=== PATIENT | female | born 1995 | race Caucasian/White ===

== ENCOUNTER 2023-03-20 07:39 | Outpatient (AMB) | payer OTHER, SELFPAY ==
--- NOTE | 2023-03-20 07:52 | A.OFFPC_ITS ---
Vital Signs 03/20/23 07:53 Height 5 ft 4 in Weight 117 lb BMI 20.1 BP 100/60 Blood Pressure Location Lt brachial Position Sitting Pulse 69 Pulse Source Pulse Oximeter Pulse Oximetry (%) 100 Oxygen Delivery Method Room Air Intake Visit Reasons: Severe Mental health disorder Allergies cephalexin Adverse Reaction (Verified 03/20/23 07:55) Anaphylaxis Penicillins Adverse Reaction (Verified 03/20/23 07:55) Anaphylaxis Medication List - Last Reconciled 03/20/23 by ASUNCION Horton escitalopram oxalate 5 mg PO DAILY escitalopram oxalate (Lexapro) 5 mg PO DAILY methylphenidate HCl ER (Concerta) 18 mg PO DAILY Tobacco use date assessed: 03/20/23 Dental Screening Dental Screen Date: 03/20/23 Did you have a dental visit in the last 12 months?: No Was dental information given to patient?: Patient has dentist HPI Severe Mental health disorder HPI Details New pt is here for a PE. Will order labs. She does not have a optometrist, will refer. Pt needs a referral for a therapist, will have BH team speak with penelope pratt. Denies any SI or HI. pt does have a psychiatrist already who manages her meds [facility] Medical History Migraines Family History Maternal Aunt Mental health disorder Mother Mental health disorder Social History Housing: House Patient Tobacco Use Status: Never used Tobacco e-Cigarette/Vaping Use: Currently Using service: No Current occupational status: employed Cognitive needs: No Hearing needs: No Vision needs: Yes Questionnaire PHQ-9 Over the last 2 weeks, how often have you been bothered by any of the following problems? 1. Little interest or pleasure in doing things: several days 2. Feeling down, depressed, or hopeless: more than half the days 3. Trouble falling or staying asleep, or sleeping too much: several days 4. Feeling tired or having little energy: several days 5. Poor appetite or overeating: not at all 6. Feeling bad about yourself - or that you are a failure or have let yourself or your family down: several days 7. Trouble concentrating on things, such as reading the newspaper or watching television: not at all 8. Moving or speaking so slowly that other people could have noticed. Or the opposite - being so fidgety or restless that you have been moving around a lot more than usual: not at all 9. Thoughts that you would be better off or of hurting yourself in some way: not at all Total score: 6 Depression Screening Interpretation: Negative Depression Screening Done: Yes 24456 - PHQ-9 Billing: Yes Source: Developed by Drs. Daren Crenshaw, Noy Larson, Sin Nguyen and colleagues, with an educational cinthia from [employer]. Thrive Questionnaire Date Thrive assessed: 03/20/23 I am a: Patient What is your living situation today?: I have a steady place to live Within the past 12 months, did the food you bought not last and you didn't have the money to get more?: Never true Within the past 12 months, did you worry whether your food would run out before you got money to buy more?: Never true Do you have trouble paying for medicines?: No Do you have trouble getting transportation to medical appointments?: No Do you have trouble paying your heating and electricity bill?: No Do you have trouble taking care of your child, family member or friend?: No Do you have trouble with day-to-day activities such as bathing, preparing meals, shopping, managing finances, etc.?: No Are you currently unemployed and looking for a job?: No Are you interested in more education?: No Currently or been in a relationship where the following occur: no concerns reported AUDIT C Alcohol Use Questionnaire (AUDIT-C) 1. How often do you have a drink containing alcohol?: Monthly or less 2. How many drinks containing alcohol do you have on a typical day when you are drinking?: 1 or 2 3. How often do you have six or more drinks on one occasion?: Never Total Score: 1 Score Reviewed/Action Taken: Yes TYE-7 AMB Questionnaire TYE-7 Date TYE - 7 assessed: 03/20/23 Feeling nervous, anxious, or on edge: 2 = More than half the days Not being able to stop or control worryin = Nearly every day Worrying too much about different things: 3 = Nearly every day Trouble relaxin = Several days Being so restless that it is hard to sit still: 1 = Several days Becoming easily annoyed or irritable: 0 = Not at all Feeling afraid as if something awful might happen: 1 = Several days Total TYE-7 score (0-4 normal; 5-9 mild; 10-14 moderate; 15-21 severe): 11 Source: Developed by Drs. Daren Crenshaw, Noy Larson, Sin Nguyen and colleagues, with an educational cinthia from [employer]. TYE-7 Assessment Billing TYE-7 Assessment Tool: TYE-7 Assessment 66199 Review of Systems Const Denies chills and Denies fever(s) Eyes Denies blurry vision ENT Denies vertigo, Denies dizziness and Denies sore throat Card Denies chest pain at rest, Denies chest pain with activity, Denies diaphoresis, Denies dyspnea and Denies dyspnea on exertion Resp Denies cough, Denies dyspnea, Denies dyspnea on exertion and Denies wheezing GI Denies abdominal pain, Denies melena, Denies hematochezia, Denies constipation, Denies diarrhea and Denies loose stools Denies hematuria Musc Denies numbness and Denies tingling Skin/Breast Denies lesions Neuro Denies vertigo, Denies dizziness, Denies numbness and Denies tingling Psych Denies anxiety, Denies depression, Denies homicidal ideation, Denies suicidal ideation and Denies other (substance abuse) Aller/Immun Denies wheezing Physical exam (Primary Care) Vital Signs: Last Vital Signs Pulse 69 03/20/23 07:53 BP 100/60 03/20/23 07:53 Pulse Ox 100 03/20/23 07:53 Oxygen Delivery Method Room Air 03/20/23 07:53 BMI result Body Mass Index 20.1 Tobacco/Smoking Status: Tobacco use Status Tobacco use date assessed 03/20/23 03/20/23 08:00 Patient Tobacco Use Status Never used Tobacco 03/20/23 08:00 e-Cigarette/Vaping Use Currently Using 03/20/23 08:00 PHQ-9: PHQ-9 Score PHQ-9: Total score 6 03/20/23 08:12 Depression Screening Interpretation: Negative Thrive Assessment: Date of Thrive Assessment Date Thrive assessed 03/20/23 03/20/23 08:12 Currently or been in a relationship where the following occur: no concerns reported Const General: cooperative Nutritional Appearance: well nourished Orientation/consciousness: patient oriented x3 HENMT Head: Yes normal to inspection, Yes normocephalic and Yes atraumatic Ears: TM's normal bilaterally Eyes General: appearance normal, both eyes and all related structures Alignment and Position: alignment normal and position normal Neck Neck: Yes normal visual inspection and Yes no lymphadenopathy Thyroid: Thyroid normal Resp Effort & Inspection: normal respiratory effort Auscultation: clear to auscultation bilaterally Cardio Rate: regular rate Rhythm: regular rhythm Heart sounds: S1 normal heart sound present, S2 normal heart sound present and no murmurs GI Palpation (GI): Soft to palpation and nontender Auscultation: normal bowel sounds Skin Rashes: no rashes Neuro General: patient oriented x3 Romberg Test: Negative Psych Appearance: grossly normal Mental Status: mental status grossly normal Speech and movement: Normal speech and movement present Affect: normal affect Attitude: cooperative Thought process: Normal thought process present Thought content: Normal thought content present Insight: Good insight present (Psych) Judgement: Good judgement present (Psych) Assessment and Plan Assessment & Plan (1) Physical exam: Code(s): Z00.00 - Encounter for general adult medical examination without abnormal findings Plan: Labs ordered (2) Screening for cervical cancer: Code(s): Z12.4 - Encounter for screening for malignant neoplasm of cervix Plan: Referred to optometrist Plan The patient agreed to the use of a medical technologist hematology for this encounter. Scribed for ASUNCION Mahmood by Sandra Adams medical technologist hematology, on 03/20/2023 at 08:00 EST. Orders: Orders Comprehensive [place]. Panel Fast Today Z00.00 - Encounter for general adult medical examination without abnormal findings UA CC w/rflx Micro + Cult Today Z00.00 - Encounter for general adult medical examination without abnormal findings Lipid Panel Today Z00.00 - Encounter for general adult medical examination without abnormal findings Complete Blood Count Auto Diff Today Z00.00 - Encounter for general adult medical examination without abnormal findings TSH reflex Free T4 Today Z00.00 - Encounter for general adult medical examination without abnormal findings Referrals [facility] [employer] Referral Z12.4 - Encounter for screening for malignant neoplasm of cervix Coding Level of Care Code New Pt Prev Care 18-39yr(21025 Diagnoses Physical exam Z00.00 Screening for cervical cancer Z12.4 Additional Codes TYE-7 Assessment Billing - TYE-7 Assessment Tool: TYE-7 Assessment [id number] ([id number])
[2023-03-20 07:53] VITALS: BP 100/60; PULSE 69; O2SAT 100; BMI 20.1
== END 2023-03-20 08:29 | disposition home or self-care (01) ==
PROVIDERS: Visit Provider Nurse Practitioner Family
DX: Z00.00 Encounter for general adult medical examination without abnormal findings (principal); Z12.4 Encounter for screening for malignant neoplasm of cervix
CPT/HCPCS: 99385

== ENCOUNTER 2023-06-27 09:28 | Outpatient (AMB) | payer OTHER, SELFPAY ==
--- NOTE | 2023-06-27 09:29 | MHC.OFFVIS ---
Intake Vital Signs 06/27/23 09:30 Height 5 ft 4 in Weight 117 lb BMI 20.1 BP 102/56 L Intake Visit Reasons: New patient Annual Preforms Laminator Required: No Information Interpreted: non-clinical & clinical Financial Services Representative: Financial Services Representative Present (Radha) Allergies cephalexin Adverse Reaction (Verified 06/27/23 09:33) Anaphylaxis Penicillins Adverse Reaction (Verified 06/27/23 09:33) Anaphylaxis Medication List - Last Reconciled 06/27/23 by Marjorie Morillo CNM escitalopram oxalate 5 mg PO DAILY escitalopram oxalate (Lexapro) 5 mg PO DAILY levonorgestrel-ethinyl estrad 0.1-20 mg-mcg (Sronyx) 1 tab PO DAILY methylphenidate HCl ER (Concerta) 18 mg PO DAILY Is last menstrual period known: Yes Last menstrual period: 05/31/23 Post menopausal: No HPI New patient Annual HPI Details Patient is here for a brand new obstetrics gynecology md exam she lost insurance during COV so could not see her previous provider but [facility] but it has been a few years since she has had an exam and Pap smear. She has been on control pills for a while with no difficulty at all. 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 This is a potential she may be interested in childbearing in the somewhat near future. I reviewed the options for where to go to deliver in the [facility] currently.. Has found primary care provider that she feels she can speak with. [facility] Medical History (Updated 06/27/23 @ 10:11 by Marjorie Morillo CNM) Arthritis ADHD Depression Migraines Family History (Updated 06/27/23 @ 09:35 by KEVIN Franco) Maternal Aunt Mental health disorder Breast cancer Mother Mental health disorder Paternal Aunt Breast cancer Social History (Updated 06/27/23 @ 09:36 by KEVIN Franco) Housing: House Alcohol intake: current Alcohol intake frequency: holidays/special occasions only Patient Tobacco Use Status: Never used Tobacco e-Cigarette/Vaping Use: Currently Using Substance Use Type: Marijuana service: No Current occupational status: employed Cognitive needs: No Hearing needs: No Vision needs: Yes Female Reproductive History Menstrual Age of Menarche: 17 Duration of menses: 3-5 days Date of last menstrual period: 05/31/23 control method: pills Total pregnancies: 0 Physical Exam Vital Signs: Last Vital Signs BP 102/56 L 06/27/23 09:30 BMI result Body Mass Index 20.1 Const General: healthy appearing, comfortable, no acute distress, well developed and alert Nutritional Appearance: average body habitus Orientation/consciousness: patient oriented x3 Limitations: no limitations HEENT Head: Yes normocephalic Neck Neck: Yes normal visual inspection Thyroid: Thyroid normal Chest Chest palpation & inspection: normal inspection of the chest Breast/axilla inspection: normal inspection of the breasts and normal inspection of the axillae Breast/axilla palpation: normal palpation of the breasts and normal palpation of the axillae Resp Effort & Inspection: normal respiratory effort GI Inspection: Yes normal to inspection, No Abdominal wall edema and No distended Palpation (GI): Soft to palpation and nontender Other: External exam within normal limits vagina pink so healthy mucous no abnormal discharge nulliparous cervix long close thick pink mobile nontender uterus small anteverted mobile nontender adnexa nontender good tone with Kegel. General: Yes bladder normal to palpation External Female Exam: normal external appearance and normal appearance of the urethra Speculum Exam - Vagina: normal appearance of the vagina, normal palpation and normal vaginal discharge Speculum Exam - Cervix: normal appearance of the cervix, normal palpation and nontender Bimanual exam- vagina & uterus: normal bimanual exam, normal palpation, uterine size normal, bladder normal to palpation, consistency normal, normal palpation, uterine mobility normal, uterine shape normal, No Cervical tenderness present, non-tender and no cervical motion tenderness Bimanual Exam- Adnexa, other: normal adnexae, no masses, normal and No adnexal tenderness Neuro General: patient oriented x3 Assessment & Plan Assessment & Plan (1) Screening for cervical cancer: Comment: 06/26/22 pap=..... Code(s): Z12.4 - Encounter for screening for malignant neoplasm of cervix (2) Encounter for screening examination for sexually transmitted disease: Code(s): Z11.3 - Encounter for screening for infections with a predominantly sexual mode of transmission (3) Family planning counseling: Code(s): Z30.09 - Encounter for other general counseling and advice on contraception (4) Well woman exam with routine gynecological exam: Code(s): Z01.419 - Encounter for gynecological examination (general) (routine) without abnormal findings (5) Surveillance for control, oral contraceptives: Code(s): Z30.41 - Encounter for surveillance of contraceptive pills Plan -----Discussed in this visit the following: healthy balanced diet, regular and consistent exercise, getting recommended health screens, doing the best she can for her particular health concerns, kegel exercises, pap smear screening and followup recommendations, mammography screening and SBE, normal changes in cycles in her life stage--- .----I reviewed available options for Control Methods and their associated side effect profiles. In particular, we discussed the method most of interest to her. Refilling the prescription that she is on reviewed danger signs related to control pills to continue with 1 pill every day as directed refills sent as well she has a few pills left on her old prescription and she will use the oldest pills 1st. -offered blood work for HIV hep B hep C and syphilis. She still has some fasting blood work to get done for her primary and since she has not eaten today she may get it all done downstairs now. I asked her to checkup front for information about the portal so she can get her own results. Also discussed potential future childbearing discussed that we no longer have a birthing center and the ability to provide comprehensive maternity care. Discussed other options in the [place] including [facility] and the 7 sister birthing center in [place] that she is aware of already. Reviewed her healthy lifestyle and health practices and the common findings of Gardnerella and Margaret which do not need to be treated unless they are symptomatic.. Orders: Orders Bacterial Vaginosis Panel Today Z11.3 - Encounter for screening for infections with a predominantly sexual mode of transmission CT NG by PCR Today Z11.3 - Encounter for screening for infections with a predominantly sexual mode of transmission Pap Smear Today Z12.4 - Encounter for screening for malignant neoplasm of cervix Hepatitis C Antibody Today Z01.419 - Encounter for gynecological examination (general) (routine) without abnormal findings, Z11.3 - Encounter for screening for infections with a predominantly sexual mode of transmission, Z12.4 - Encounter for screening for malignant neoplasm of cervix, Z30.09 - Encounter for other general counseling and advice on contraception, Z30.41 - Encounter for surveillance of contraceptive pills Hepatitis B Surface Antigen Today Z - Encounter for gynecological examination (general) (routine) without abnormal findings, Z11.3 - Encounter for screening for infections with a predominantly sexual mode of transmission, Z12.4 - Encounter for screening for malignant neoplasm of cervix, Z30.09 - Encounter for other general counseling and advice on contraception, Z30.41 - Encounter for surveillance of contraceptive pills HIV Ab/Ag Today Z419 - Encounter for gynecological examination (general) (routine) without abnormal findings, Z11.3 - Encounter for screening for infections with a predominantly sexual mode of transmission, Z12.4 - Encounter for screening for malignant neoplasm of cervix, Z30.09 - Encounter for other general counseling and advice on contraception, Z30.41 - Encounter for surveillance of contraceptive pills Syphilis Screen Today Z - Encounter for gynecological examination (general) (routine) without abnormal findings, Z11.3 - Encounter for screening for infections with a predominantly sexual mode of transmission, Z12.4 - Encounter for screening for malignant neoplasm of cervix, Z30.09 - Encounter for other general counseling and advice on contraception, Z30.41 - Encounter for surveillance of contraceptive pills Medications: New levonorgestrel-ethinyl estrad 0.1-20 mg-mcg (Sronyx) 1 tab PO DAILY 84 tabs 4RF Coding Level of Care Code New Pt Prev Care 18-39yr(88948 Diagnoses Screening for cervical cancer Z12.4 Encounter for screening examination for sexually transmitted disease Z11.3 Family planning counseling Z30.09 Well woman exam with routine gynecological exam Z Surveillance for control, oral contraceptives Z30.41
[2023-06-27 09:30] VITALS: BP 102/56; BMI 20.1
== END 2023-06-27 10:14 | disposition home or self-care (01) ==
LOC: HO.HWSM 09:28
PROVIDERS: Visit Provider Advanced Practice Midwife
DX: Z01.419 Encounter for gynecological examination (general) (routine) without abnormal findings (principal)
CPT/HCPCS: 99385

== ENCOUNTER 2023-06-27 09:28 | Outpatient (REF) | payer OTHER, SELFPAY ==
[2023-06-28 13:36] LABS: BV Int Neg Control Negative (Negative); BV Int Pos Control Positive (Positive)
== END 2023-06-27 09:29 | disposition home or self-care (01) ==
LOC: HO.LNP 09:28
PROVIDERS: Visit Provider Advanced Practice Midwife
DX: Z01.419 Encounter for gynecological examination (general) (routine) without abnormal findings (principal); Z11.3 Encounter for screening for infections with a predominantly sexual mode of transmission; Z79.899 Other long term (current) drug therapy
CPT/HCPCS: 87480; 87510; 87660; 88142; 99385

== ENCOUNTER 2023-06-27 10:16 | Outpatient (REF) | payer OTHER, SELFPAY ==
[2023-06-27 12:16] LABS: Syphilis Screen Nonreactive (Nonreactive)
[2023-06-27 12:17] LABS: HBsAGNum1 0.44 S/CO (0.00-0.99); HIV AB/AG Nonreactive (Nonreactive); HIV Num 1 0.07 S/CO (0.00-0.99); Hepatitis B Surface Antigen Negative (Negative); ~Hepatitis C Antibody Nonreactive (Nonreactive)
[2023-06-27 13:34] LABS: CT PCR NOT DETECTED (Not Detect.); NG PCR NOT DETECTED (Not Detect.)
== END 2023-06-27 10:17 | disposition home or self-care (01) ==
LOC: HO.HHCL 10:16
PROVIDERS: Visit Provider Advanced Practice Midwife
DX: Z01.419 Encounter for gynecological examination (general) (routine) without abnormal findings (principal); Z11.3 Encounter for screening for infections with a predominantly sexual mode of transmission
CPT/HCPCS: 0353U; 86780; 86803; 87340; 87389

== ENCOUNTER 2023-11-15 11:21 | Outpatient (AMB) | payer OTHER, SELFPAY ==
--- NOTE | 2023-11-15 11:53 | A.OFFPC_ITS ---
Vital Signs 11/15/23 12:02 Weight 114 lb BP 112/70 Blood Pressure Location Rt brachial Position Sitting Pulse 86 Pulse Source Pulse Oximeter Pulse Oximetry (%) 98 Oxygen Delivery Method Room Air Intake Visit Reasons: Meds Follow Up Allergies cephalexin Adverse Reaction (Verified 11/15/23 12:03) Anaphylaxis Penicillins Adverse Reaction (Verified 11/15/23 12:03) Anaphylaxis Medication List - Last Reconciled 11/15/23 by ASUNCION Horton escitalopram oxalate 5 mg PO DAILY levonorgestrel-ethinyl estrad 0.1-20 mg-mcg (Sronyx) 1 tab PO DAILY methylphenidate HCl ER (Concerta) 18 mg PO DAILY Tobacco use date assessed: 11/15/23 Dental Screening Dental Screen Date: 11/15/23 Did you have a dental visit in the last 12 months?: Yes Did you have a dental problem in the last 6 months where you did not have access to dental care?: No Was dental information given to patient?: Patient has dentist HPI Meds Follow Up HPI Details Pt reports passing out when she stands up too fast or when she is scared. She reports complete LOC with these episodes (since mid-teens). Pt reports that this has been going on for many years. Pt has a hx of panic attacks. ? POTS component as well. Will order tilt table test and holter monitor. Pt never had imaging of her head, will order. Pt does report if she drinks sugary drinks the symptoms tend to appear more often. Pt does report if she feels, what sounds like a panic attack, she drops to the ground and sometimes does not lose consciousness. 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 EDS component, pt was suppossed to go for more testing (genetic), but hasn't done this yet. Told her to increase fluids, and can increase her sodium content as well. [facility] Medical History Arthritis ADHD Depression Migraines Family History Maternal Aunt Mental health disorder Breast cancer Mother Mental health disorder Paternal Aunt Breast cancer Social History Housing: House Alcohol intake: current Alcohol intake frequency: holidays/special occasions only Patient Tobacco Use Status: Never used Tobacco e-Cigarette/Vaping Use: Currently Using Substance Use Type: Marijuana service: No Current occupational status: employed Cognitive needs: No Hearing needs: No Vision needs: Yes Female Reproductive History Menstrual Age of Menarche: 17 Questionnaire PHQ-9 Over the last 2 weeks, how often have you been bothered by any of the following problems? 1. Little interest or pleasure in doing things: several days 2. Feeling down, depressed, or hopeless: several days 3. Trouble falling or staying asleep, or sleeping too much: several days 4. Feeling tired or having little energy: several days 5. Poor appetite or overeating: not at all 6. Feeling bad about yourself - or that you are a failure or have let yourself or your family down: several days 7. Trouble concentrating on things, such as reading the newspaper or watching television: several days 8. Moving or speaking so slowly that other people could have noticed. Or the opposite - being so fidgety or restless that you have been moving around a lot more than usual: several days 9. Thoughts that you would be better off or of hurting yourself in some way: not at all Total score: 7 Depression Screening Interpretation: Negative Depression Screening Done: Yes 63173 - PHQ-9 Billing: Yes Source: Developed by Drs. Daren Crenshaw, Noy Larson, Sin Nguyen and colleagues, with an educational cinthia from [employer]. Thrive Questionnaire Date Thrive assessed: 11/08/23 I am a: Patient What is your living situation today?: I have a steady place to live Within the past 12 months, did the food you bought not last and you didn't have the money to get more?: Never true Within the past 12 months, did you worry whether your food would run out before you got money to buy more?: Never true Do you have trouble paying for medicines?: I choose not to answer this question Do you have trouble getting transportation to medical appointments?: No Do you have trouble paying your heating and electricity bill?: No Do you have trouble taking care of your child, family member or friend?: No Do you have trouble with day-to-day activities such as bathing, preparing meals, shopping, managing finances, etc.?: No Are you currently unemployed and looking for a job?: No Are you interested in more education?: No Please select the resources that you would like help with: Housing/[facility] Currently or been in a relationship where the following occur: I choose not to answer THRIVE Score: 0 AUDIT C Alcohol Use Questionnaire (AUDIT-C) 1. How often do you have a drink containing alcohol?: 2-4 times a month 2. How many drinks containing alcohol do you have on a typical day when you are drinking?: 1 or 2 3. How often do you have six or more drinks on one occasion?: Never Total Score: 2 TYE-7 AMB Questionnaire TYE-7 Date TYE - 7 assessed: 11/15/23 Feeling nervous, anxious, or on edge: 3 = Nearly every day Not being able to stop or control worryin = Nearly every day Worrying too much about different things: 2 = More than half the days Trouble relaxin = More than half the days Being so restless that it is hard to sit still: 1 = Several days Becoming easily annoyed or irritable: 1 = Several days Feeling afraid as if something awful might happen: 2 = More than half the days Total TYE-7 score (0-4 normal; 5-9 mild; 10-14 moderate; 15-21 severe): 14 Source: Developed by Drs. Daren Crenshaw, Noy Larson, Sin Nguyen and colleagues, with an educational cinthia from [employer]. TYE-7 Assessment Billing TYE-7 Assessment Tool: TYE-7 Assessment 52623 Review of Systems Const Reports as per HPI Physical exam (Primary Care) Vital Signs: Last Vital Signs Pulse 86 11/15/23 12:02 BP 112/70 11/15/23 12:02 Pulse Ox 98 11/15/23 12:02 Oxygen Delivery Method Room Air 11/15/23 12:02 Tobacco/Smoking Status: Tobacco use Status Tobacco use date assessed 11/15/23 11/15/23 12:04 Patient Tobacco Use Status Never used Tobacco 11/15/23 11:54 e-Cigarette/Vaping Use Currently Using 11/15/23 11:54 PHQ-9: PHQ-9 Score PHQ-9: Total score 7 11/15/23 12:04 Depression Screening Interpretation: Negative Thrive Assessment: Date of Thrive Assessment Date Thrive assessed 11/08/23 11/15/23 11:54 Currently or been in a relationship where the following occur: I choose not to answer Const General: cooperative Orientation/consciousness: patient oriented x3 Resp Effort & Inspection: normal respiratory effort Auscultation: clear to auscultation bilaterally Cardio Rate: regular rate Rhythm: regular rhythm Heart sounds: S1 normal heart sound present, S2 normal heart sound present and no murmurs Neuro General: patient oriented x3 Cranial nerves: Yes CN's II-XII intact bilaterally Motor exam (neuro): 5/5 motor strength present throughout Psych Appearance: grossly normal Mental Status: mental status grossly normal Speech and movement: Normal speech and movement present Affect: normal affect Attitude: cooperative Thought process: Normal thought process present Thought content: Normal thought content present Insight: Good insight present (Psych) Judgement: Good judgement present (Psych) Assessment and Plan Assessment & Plan (1) LOC (loss of consciousness): Code(s): R40.20 - Unspecified coma (2) LOC (loss of consciousness): Code(s): R40.20 - Unspecified coma Plan: ? true LOC, ? panic attack/vasovagal (3) Palpitations: Code(s): R00.2 - Palpitations Plan: holter, tilt table test, labs Plan The patient agreed to the use of a mobile paramedical examiner for this encounter. Scribed for JOSE D Mahmood by Sandra Adams mobile paramedical examiner, on 11/15/2023 at 12:10 EST. Orders: Orders MR head/brain wo con Today R40.20 - Unspecified coma Complete Blood Count Auto Diff Today R00.2 - Palpitations, R40.20 - Unspecified coma Comprehensive [place]. Panel Fast Today R00.2 - Palpitations, R40.20 - Unspecified coma UA CC w/rflx Micro + Cult Today R00.2 - Palpitations, R40.20 - Unspecified coma ECG Tilt Table Test Today R40.20 - Unspecified coma ECG 3 day holter monitor Today R00.2 - Palpitations, R40.20 - Unspecified coma TSH reflex Free T4 Today R00.2 - Palpitations, R40.20 - Unspecified coma Lipid Panel Today R00.2 - Palpitations, R40.20 - Unspecified coma Magnesium Today R00.2 - Palpitations, R40.20 - Unspecified coma Coding Level of Care Code Est Pt Level 3 (99329) Diagnoses LOC (loss of consciousness) R40.20 Palpitations R00.2 Additional Codes TYE-7 Assessment Billing - TYE-7 Assessment Tool: TYE-7 Assessment 07584 ([id number])
[2023-11-15 12:02] VITALS: BP 112/70; PULSE 86; O2SAT 98
== END 2023-11-15 12:33 | disposition home or self-care (01) ==
PROVIDERS: Visit Provider Nurse Practitioner Family
DX: R40.20 Unspecified coma (principal); R00.2 Palpitations
CPT/HCPCS: 99213

== ENCOUNTER 2023-11-15 13:16 | Outpatient (REF) | payer OTHER, SELFPAY ==
[2023-11-15 16:05] LABS: Appearance Urine Clear; Color Urine Yellow; Glucose Urine UA Negative (Negative); Leukocyte Esterase Urine Trace (Negative); Nitrite Urine Negative (Negative); Specific Gravity - Urine 1.025 (1.005-1.025); UMIC TRIGGER UACC YES; Urine Blood Negative (Negative); Urine Ketones Negative (Negative); Urine Protein Trace mg/dL (Neg-Trace)
[2023-11-15 16:10] LABS: Bacteria Urine Trace (None Seen); Hyaline Casts Urine 0-2 /LPF (0-2); RBC Urine 0-2 /HPF (0-2); Squamous Epithelial Cell Urine 0-2 /HPF (0-2); WBC Urine 0-5 /HPF (0-5)
[2023-11-15 16:14] LABS: MANUAL DIFF FLAG NO
[2023-11-15 16:31] LABS: Basophils Absolute Auto 0.1 X10*3/uL (0.0-0.2); Basophils Percent Auto 0.8 % (0-2); Eosinophils Absolute Auto 0.2 X10*3/uL (0.0-0.4); Eosinophils Percent Auto 3.7 % (0-4); Hematocrit 38.4 % (37.0-47.0); Hemoglobin 13.2 g/dl (12.0-16.0); Lymphocytes Absolute Auto 2.9 X10*3/uL (1.2-4.9); Lymphocytes Percent Auto 45.6 % (20-40); Mean Corpuscular HGB Conc 34.4 g/dl (31.0-35.0); Mean Corpuscular Hemoglobin 32.2 pg (27.0-33.0); Mean Corpuscular Volume 93.7 fL (80.0-98.0); Mean Platelet Volume 9.5 fL (9.4-12.3); Monocytes Absolute Auto 0.4 X10*3/uL (0.1-1.2); Monocytes Percent Auto 6.7 % (2-11); Neutrophils Absolute Auto 2.7 x10*3/uL (2.0-8.3); Neutrophils Percent Auto 43.2 % (45-73); Platelet Count 310 X10*3/uL (160-400); Red Cell Distribution Width 12.1 % (11.0-16.0); White Blood Count 6.3 X10*3/uL (4.8-10.8)
[2023-11-15 16:59] LABS: Alanine Aminotransferase 14 U/L (0-31); Albumin Level 4.2 g/dL (3.5-5.0); Alkaline Phosphatase 55 U/L (39-117); Anion Gap 9 (12-20); Aspartate Amino Transferase 15 U/L (5-31); Bilirubin Total 0.5 mg/dL (0.0-1.0); Blood Urea Nitrogen 11 mg/dL (9-16); Calcium 9.5 mg/dL (8.4-10.2); Carbon Dioxide 27 mmol/L (22-29); Chloride 106 mmol/L (96-108); Cholesterol 138 mg/dL (<200); Estimated Glomerular Filt Rate > 60; Glucose Fasting 83 mg/dL (60-99); HDL Cholesterol 56 mg/dL (>40); LDL Cholesterol Calculated 69 mg/dL (<100); Magnesium 1.9 mg/dL (1.6-2.6); Potassium 3.7 mmol/L (3.3-5.1); Sodium 138 mmol/L (135-145); Total Protein 6.5 g/dL (6.5-8.0); Triglycerides 67 mg/dL (<150)
[2023-11-15 17:16] LABS: TSH reflex Free T4 1.07 uIU/mL (0.32-4.0)
== END 2023-11-15 13:17 | disposition home or self-care (01) ==
LOC: HO.HMGCLDS 13:16
PROVIDERS: PCP Nurse Practitioner Family; Visit Provider Nurse Practitioner Family
DX: Z00.00 Encounter for general adult medical examination without abnormal findings (principal); R40.20 Unspecified coma; R00.2 Palpitations
CPT/HCPCS: 36415; 80053; 80061; 81001; 81003; 83735; 84443; 85025

== ENCOUNTER → 2023-12-12 09:36 | Outpatient (REF) | payer OTHER, SELFPAY ==
--- NOTE | 2023-12-12 09:38 | HM_ITS ---
Conclusion: 1. Patient was monitored for total period of 2 days and 23 hours 2. Baseline was normal sinus rhythm with average heart rate of 78 beats per minute 3. No significant pauses or arrhythmias noted 4. No patient reported events MTDD
== END ==
LOC: HO.CARD 09:36
PROVIDERS: PCP Nurse Practitioner Family; Visit Provider Nurse Practitioner Family
DX: R00.2 Palpitations (principal); R40.20 Unspecified coma
CPT/HCPCS: 93242

== ENCOUNTER → 2023-12-12 09:38 | Outpatient (BNV) | payer OTHER, SELFPAY | PROVIDERS: PCP Nurse Practitioner Family; Visit Provider Internal Medicine Cardiovascular Disease | DX: R00.0 Tachycardia, unspecified (principal) | CPT/HCPCS: 93244 ==

== ENCOUNTER 2023-12-19 18:49 | Outpatient (REF) | payer OTHER, SELFPAY ==
--- NOTE | ~2023-12-19 | MR_ITS ---
EXAMINATION: MR BRAIN WITHOUT CONTRAST CLINICAL INFORMATION: Unspecified coma COMPARISON: None TECHNIQUE: Multiplanar multisequence MR imaging of the brain was obtained without intravenous contrast. FINDINGS: There is no acute infarct on diffusion-weighted imaging. There is no intracranial hemorrhage on iron-sensitive imaging. No extra-axial collection or mass effect/herniation. There are several scattered foci of nonspecific supratentorial white matter T2/FLAIR signal abnormality. No hydrocephalus. The ventricles are normal in morphology and size. The major flow voids at the skull base are preserved. The midline structures are normal. The cerebellar tonsils are normally positioned. The craniocervical junction is normal. Marrow signal is within normal limits. The visualized soft tissues are without significant abnormality. Trace scattered paranasal sinus mucosal thickening. MR/MR head/brain wo con IMPRESSION: Unremarkable noncontrast MRI of the brain. Electronically signed by: Harjinder Lancaster MD 01/03/2024 05:24 PM EDT
== END 2023-12-19 18:50 | disposition home or self-care (01) ==
LOC: HO.MRI 18:49
PROVIDERS: PCP Nurse Practitioner Family; Visit Provider Nurse Practitioner Family
DX: R40.20 Unspecified coma (principal)
CPT/HCPCS: 70551

== ENCOUNTER 2024-03-19 13:54 | Outpatient (AMB) | payer OTHER, SELFPAY ==
--- NOTE | 2024-03-19 14:01 | A.OFFPC_ITS ---
Vital Signs 03/19/24 14:02 Height 5 ft 4 in Weight 118 lb BMI 20.3 BP 102/62 Blood Pressure Location Lt brachial Position Sitting Pulse 73 Pulse Source Pulse Oximeter Pulse Oximetry (%) 99 Intake Visit Reasons: 4 month fu Allergies cephalexin Adverse Reaction (Verified 03/19/24 14:02) Anaphylaxis Penicillins Adverse Reaction (Verified 03/19/24 14:02) Anaphylaxis Medication List - Last Reconciled 03/19/24 by Jagjit Lemons [facility] escitalopram oxalate 10 mg PO DAILY levonorgestrel-ethinyl estrad 0.1-20 mg-mcg (Sronyx) 1 tab PO DAILY methylphenidate HCl ER (Concerta) 18 mg PO DAILY Tobacco use date assessed: 11/15/23 Dental Screening Dental Screen Date: 11/15/23 HPI 4 month fu HPI Details History of Present Illness The patient is a 28-year-old female presenting with 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 The patient reports experiencing episodes of syncope and dizziness associated with standing since childhood, indicating a need for monitoring of postural changes to manage symptoms. Previous episodes included anxiety-like attacks, managed by changing environments or positioning. Although the patient has not experienced recent severe syncopal episodes, she reported occasional vertigo. A potential diagnosis of EDS is being explored, prompted by a history of hypermobility and joint issues. She noted that her joints, particularly her shoulders, experience frequent subluxations. She did meet another individual with EDS experiencing a severe form requiring surgery after a joint dislocation. The patient?s condition demonstrated variations in symptomatic expression, indicating a broad spectrum disorder. She expressed concerns over possible Raynaud's Syndrome symptoms, describing extremities that turn blue and cold, with additional color and sensation changes. The patient has previously undergone a negative head CT and normal Holter Monitor, and her laboratory results, including kidney and cholesterol levels, are reported as optimal. Social History - Employment: Recently started a new pos ition, working with a trusted colleague, improving her stress and work conditions. - Family: Identified best friend as a penaloza pportive figure; no biological children but has close relationships with friend's children. - Past Employment: Previously worked in a high-stress environment with toxic management dynamics, which has since improved with the new job. Review of Systems - Cardiovascular: Reports dizziness when standing, necessitating caution upon rising. - Musculoskeletal: Notes occasional knee strain, described as a sensation of potential dislocation. - Dermatological: Reports episodes of ex tremities turning blue and cold, indicative of vasospastic episodes. - Neurological: Reports vertigo without concomitant nausea. Physical Exam - Musculoskeletal- right knee with minim al crepitus with extension and flexion. s1 s2 clear lungs A+O Results - Labs: Recent labs were reported as nor mal with optimal cholesterol and kidney function. - Tests: Holter Monitor showed no abnorm alities. - Imaging: CT scan of the head was negat marcie for acute findings. 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 Encouragement to avoid overexertion and joint overuse. - Postural Orthostatic Tachycardia Syndr ome: Recommendation for increased hydration and sodium intake to alleviate symptoms. Consideration for further testing if symptoms exacerbate. (tilt test ordered previously, never done). Pt reports her tool repair technician told her she most likely has POTS as well, though this is currently quite manageable. - Raynaud's Syndrome: Advising use of wa rm clothing and avoidance of cold to manage vasospastic episodes, with consideration of pharmacotherapy if symptoms are debilitating. Patient was informed and verbally consented to the use of an ambient scribe for clinic note documentation during this visit. Discussion Notes We discussed the likely EDS diagnosis and the importance of collaborating with a genetics specialist for comprehensive testing and management. We explored possible management strategies for POTS, including lifestyle modifications and symptom monitoring, without the current need for pharmacological intervention. The patient's laboratory results are reassuring, showing no signs of anemia or other causes that might contribute to her dizziness. I explained the utility of environmental and lifestyle changes to manage Raynaud's-type symptoms and the potential need to escalate care if these are insufficient. We reviewed the importance of maintaining communication with medical staff services coordinator and returning if symptoms worsen. Patient Instructions - Continue follow-up with genetics jinny vargas for evaluation of Berlin-Danlos Syndrome. - Monitor symptoms of dizziness, ensurin g sufficient hydration and increased salt intake. - Utilize warming strategies to prevent vasospastic episodes in extremities. - Schedule follow-up for additional lab work after the holiday season, ensuring fasting before tests. - Maintain contact and follow up as plan ashleigh with appointments already scheduled. [facility] Medical History (Updated 12/03/24 @ 17:50 [facility] Arthritis ADHD Depression Migraines Surgical History (Updated 03/19/24 @ 14:03 by Link Stark [facility]) No pertinent past surgical history Family History Maternal Aunt Mental health disorder Breast cancer Mother Mental health disorder Paternal Aunt Breast cancer Social History Housing: House Alcohol intake: current Alcohol intake frequency: holidays/special occasions only Patient Tobacco Use Status: Never used Tobacco e-Cigarette/Vaping Use: Currently Using Substance Use Type: Marijuana service: No Current occupational status: employed Cognitive needs: No Hearing needs: No Vision needs: Yes Female Reproductive History Menstrual Age of Menarche: 17 Questionnaire Thrive Questionnaire Date Thrive assessed: 11/08/23 I am a: Patient What is your living situation today?: I have a steady place to live Within the past 12 months, did the food you bought not last and you didn't have the money to get more?: Never true Within the past 12 months, did you worry whether your food would run out before you got money to buy more?: Never true Do you have trouble paying for medicines?: I choose not to answer this question Do you have trouble getting transportation to medical appointments?: No Do you have trouble paying your heating and electricity bill?: No Do you have trouble taking care of your child, family member or friend?: No Do you have trouble with day-to-day activities such as bathing, preparing meals, shopping, managing finances, etc.?: No Are you currently unemployed and looking for a job?: No Are you interested in more education?: No Please select the resources that you would like help with: None Currently or been in a relationship where the following occur: I choose not to answer THRIVE Score: 0 TYE-7 AMB Questionnaire TYE-7 Date TYE - 7 assessed: 11/15/23 Source: Developed by Drs. Daren Crenshaw, Noy Larson, Sin Nguyen and colleagues, with an educational cinthia from [employer]. Physical exam (Primary Care) Vital Signs: Last Vital Signs Pulse 73 03/19/24 14:02 BP 102/62 03/19/24 14:02 Pulse Ox 99 03/19/24 14:02 BMI result Body Mass Index 20.3 Tobacco/Smoking Status: Tobacco use Status Tobacco use date assessed 11/15/23 03/19/24 14:04 Patient Tobacco Use Status Never used Tobacco 03/19/24 14:04 e-Cigarette/Vaping Use Currently Using 03/19/24 14:04 Thrive Assessment: Date of Thrive Assessment Date Thrive assessed 11/08/23 03/19/24 14:04 Currently or been in a relationship where the following occur: I choose not to answer Coding Level of Care Code Est Pt Level 3 (69450) Diagnoses Palpitations R00.2 Anxiety F41.9 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
[2024-03-19 14:02] VITALS: BP 102/62; PULSE 73; O2SAT 99; BMI 20.3
== END 2024-03-19 15:35 | disposition home or self-care (01) ==
PROVIDERS: PCP Nurse Practitioner Family; Visit Provider Nurse Practitioner Family
DX: R00.2 Palpitations (principal); F41.9 Anxiety disorder, unspecified; Q79.60 Ehlers-Danlos syndrome, unspecified

== ENCOUNTER → 2024-03-19 13:54 | Outpatient (BNVA) | payer OTHER, SELFPAY | PROVIDERS: PCP Nurse Practitioner Family; Visit Provider Nurse Practitioner Family | DX: R00.2 Palpitations (principal); F41.9 Anxiety disorder, unspecified; Q79.60 Ehlers-Danlos syndrome, unspecified | CPT/HCPCS: 99212 ==

== ENCOUNTER 2024-04-01 12:15 | Outpatient (REF) | payer OTHER, SELFPAY ==
--- OUTSIDE RECORDS SUMMARY | 2024-04-01 12:18 | XMS_ITS | Data Portability ---
Author Organization [facility] [address] Address [address] [place] [address] Care Team Providers Care Marketing Operations Associate Name Role Phone LUIS LOPEZ Primary Care Provider Assessment Encounter Date Assessment Date Assessment LastModified by Organization Details LastModified Time 08/18/2023 08/18/2023 A bruise will get better on its own. But to feel better and help your bruise heal, you can: ? Put a cold gel pack, bag of ice, or bag of frozen vegetables on the injured area every 1 to 2 hours, for 15 minutes each time. Put a thin towel between the ice (or other cold object) and your skin. Use the ice (or other cold object) for at least 6 hours after your injury. Some people find it helpful to ice longer, even up to 2 days after their injury. ? Raise the area, if possible ? Raising the area above the level of your heart helps to reduce swelling. ? Take medicine to reduce the pain and swelling ? To treat pain, you can take acetaminophen (sample brand name: Tylenol). To treat pain and swelling, you can take ibuprofen (sample brand names: Advil, Motrin). But people who have certain conditions or take certain medicines should not take ibuprofen. If you are unsure, ask your doctor or nurse if you can take ibuprofen. ? Use an elastic bandage ? Using an elastic compression bandage to keep pressure on the area can reduce swelling. Be careful not to wrap the bandage too tightly. For most injuries, you can use the bandage during the first few days of healing, but take it off when you sleep. If you have another injury in the same area, like a sprained ankle, you can continue to use the elastic bandage as the injury heals. Do not use heat packs or a heating pad Do not stick a needle or other object in your bruise to drain it. [email or web address] Not available 08/18/2023 16:24:55 Plan of Treatment Reminders Order Date Submit Date Provider Last Modified By Organization Details Last Modified Time Details Appointments None recorded. Lab None recorded. Referral None recorded. Procedures None recorded. Surgeries None recorded. Imaging None recorded. Medication Orders prednisone 10 mg tablet 2023 024 [facility]acy #[id number], [address] [place], [address], 10:07:31 hydroxyzine HCl 25 mg tablet 2023 024 [facility]/Pharmacy #[id number], [address] [place], [address], 10:07:30 Patient TargetsNo targets recorded. Patient Instructions Encounter Date Encounter Id Patient Instructions Last Modified By Organization Details Last Modified Time 08/18/2023 [id number] bruises: care instructions [email or web address] Not available 08/18/2023 16:24:56 09/04/2023 [id number] Poison Michael Rash ??? Follow these important instructions: ??? - Avoid further irritation of the skin where you have contact dermatitis. - Avoid further contact with the substance that appears to cause the dermatitis. - Put cool, moist cloths on the areas of skin with dermatitis. How can I help prevent contact dermatitis? - If you know what substance caused the dermatitis, make sure that the substance is not one of the ingredients in the cosmetic, cleaning, or other products that you use. If you are accidentally exposed to the substance, wash the exposed area immediately and thoroughly. If you are allergic to nickel, find out what metal is in jewellery before you wear it. Whether or not you know what substances give you the rash, it may be helpful to: - Learn to recognize poison oak, poison mihcael, and ragweed, and avoid contact with them. - Use hypoallergenic cosmetics. - Pat your skin dry instead of rubbing it. - Try to avoid using solvents and chemicals, and wear heavy gloves when you must use them. - Use a tape coater, or wear rubber gloves when you wash dishes. ??? Call office, return to UC or PCP, or go to ER if: ??? - Persistence and worsening of symptoms even after withdrawal of irritating materials calls for medical attention. - Develop new symptoms such as fevers, chills, body aches, or feelings of illness [email or web address] Not available 09/04/2023 10:08:12 Reason for Referral None Reported. 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 Medical Equipment None Reported. Allergies Allergen ID Allergen Name Allergen Category Reaction Reaction Severity Criticality Documentation Date Start Date Code Code System Note Provider Name and Address Organization Details Recorded Time 873820 cephalexi n medicatio n Not available Not available Not available 08/18/2023 2231 RxNorm Fiona [place] null, [place] - [facility] 4 16:07:06 795303 Medicinal product containin g penicilli n and acting as antibacte rial agent (product) medicatio n Not available Not available Not available 08/18/2023 50496 05 SNOMED Fiona [place] null, [place] - [facility] 4 16:07:14 Medications Name Sig Start Date Stop Date Status Note LastModified by Organization Details LastModified Time prednisone 10 mg tablet start 6 tabs x 3 days then 4 tabs x 3 days then 3 tabs x 3 days, then 2 tabs x 3 days, then 1 tab x 3 days, then stop. active Not Available Not Available Not Avai lable hydroxyzine HCl 25 mg tablet Take 1 tablet 3 times a day by oral route as needed for 7 days, for itching, hives, rash.. 024 active Not Available Not Available Not Avai lable Concerta active Not Available Not Avai lable Not Available Lexapro active Not Available Not Avail able Not Available Sronyx active Not Available Not Availa ble Not Available Vitals Date Recorded Body height Body mass index (BMI) Body weight Body temperature Respiratory rate Oxygen saturation Oxygen saturation in Arterial blood by Pulse oximetry Heart rate Systolic blood pressure Diastolic blood pressure Provider Name and Address Organization Details Last Updated DateTime 4 162.56 cm 19.9 kg/m2 89282.7 1 g 97.3 [degF] 16 /min 100 % 100 % 76 /min 112 mm[Hg] 80 mm[Hg] Fiona Banuelos PA - [facility] 16:12:28 Date Recorded Body height Body mass index (BMI) Body weight Oxygen saturation Oxygen saturation in Arterial blood by Pulse oximetry Heart rate Respiratory rate Body temperature Systolic blood pressure Diastolic blood pressure Provider Name and Address Organization Details Last Updated DateTime 4 162.56 cm 19.9 kg/m2 90624.7 1 g 99 % 99 % 86 /min 18 /min 98.6 [degF] 116 mm[Hg] 80 mm[Hg] Nicolasa Knight PA - [facility] 4 09:58:36 Social History Question Answer Notes LastModified by Organizat ion Details LastModified Time Tobacco Smoking Status Never Smoker Fiona hayden [place] - [facility] 08/18/2023 16:09:48 What Is Your Level Of Alcohol Consumption? Occasional [email or web address] Information not available 08/18/2023 Sex: Unknown Functional Status None recorded. Mental Status None recorded. Family History Relationship Description Onset Age of this Age Resolved Age Notes LastModified by Organization Details LastModified Time Father No current problems or disability [email or web address] Not available 08/17 16:09:24 Mother No current problems or disability [email or web address] Not available 08/17 16:09:24 Medical History No medical history recorded. Gynecological History Statement/Question Response Date of LMP 08/22/2023 Is there any chance of ? No LMP Definite Obstetrics History GPAL:G 0 P 0 0 0 0 Past Encounters Encounter ID Performer Location Encounter Start Date Encounter Closed Date Diagnosis/Indication Diagnosis SNOMED-CT Code Diagnosis ICD10 Code [id number] [address] [place] [place] [address] 01/04/2021 15:03:08 01/04/2021 16:58:20 [id number] [place] [address] 11/25/2018 10:40:44 11/25/2018 10:55:29 [id number] [place] [address] 12/04/2020 15:09:57 12/04/2020 16:33:32 [id number] [address] [place] [address] 06/02/2017 17:12:23 06/02/2017 18:30:13 [id number] [address] [place] [address] 12/24/2020 12:34:44 12/24/2020 14:50:51 [id number] [place] [address] [place] [address] 08/18/2023 15:49:38 08/18/2023 16:27:50 Superficial contusion of skin of thigh 952372368 S70.12XA [id number] [place] [address] [place] [address] 09/04/2023 09:51:02 09/04/2023 10:08:54 Contact dermatitis caused by urushiol from [facility] michael [id number] L25.5 Health Concerns Section Related Observation LastModified by Organization Detai ls LastModified Time None Recorded Concern Status LastModified by Organization Details LastModified Time None Recorded Advance Directives Directive None Recorded Payers Encounter Date Sequence Insurance Name Policy Number Policy Donis Covered Member ID Donis Member ID Guarantor Name 01/04/2021 1 [facility] (O) [id number] Ignacio Hollis [id number] Rhianna Bunny 08/18/2023 1 [facility] (MEDICAID REPLACEMENT - HMO) ALDO Mcmahonall [id number] Rhianna Mcmahonall 09/04/2023 1 [facility] (MEDICAID REPLACEMENT - HMO) ALDO [place] Bunny [id number] Rhianna Bunny Notes Date Note Type Note Provider Name and Address Organization Details Recorded Time 4 text/html Skin Redness UCReported bypatient.Location:left legs; left lateral thigh bruise unknown origin thinks is a spider bite no pain discoloration Quality:erythematous Severity:worsening Duration: Onset:gradual onset Symptoms:no fever; no nausea; no vomiting DONNY SMITH NP [address] [place], [address], [place] 08/18/2023 16:29:46 4 text/html UC Rash/Skin LesionReported bypatient.source of patient informationInformation obtained from patient; Patient arrived at Urgent Care ambulatory Location:arms; legs; thighs Quality:itchy;red;spreading Severity:moderate Duration:2 weeks Context:recent outdoor activity; no new detergent or skin product; no recent change in medication; no exposure to hair dye; no expsoure to new clothes/jewelry; no recent travel; no recent illness; no pets/animals in home; not affiliated with chemicals/pesticides Alleviating Factors:nothing gives relief Associated Symptoms:no fever; no fatigue Treatment History:OTC treatment with no improvement; prescription topical treatment with no improvementNotes:did outside yard work . also have history of poison Michael dermatitis previously Vijay Swain NP [address] [place], [address], [place] [employer] [facility] 09/04/2023 10:08:32 OBGyn Episode No OBEpisode recorded.
[2024-04-01 16:30] LABS: Appearance Urine Cloudy; Color Urine Yellow; Glucose Urine UA Negative (Negative); Leukocyte Esterase Urine Trace (Negative); Nitrite Urine Negative (Negative); Specific Gravity - Urine 1.025 (1.005-1.025); UMIC TRIGGER UACC YES; Urine Blood Moderate (2+) (Negative); Urine Ketones Negative (Negative); Urine Protein Negative (Neg-Trace)
[2024-04-01 16:30] LABS: MANUAL DIFF FLAG NO
[2024-04-01 16:33] LABS: Basophils Absolute Auto 0.1 X10*3/uL (0.0-0.2); Basophils Percent Auto 0.9 % (0-2); Eosinophils Absolute Auto 0.3 X10*3/uL (0.0-0.4); Eosinophils Percent Auto 4.7 % (0-4); Hematocrit 41.1 % (37.0-47.0); Hemoglobin 13.8 g/dl (12.0-16.0); Imm Gran Abs Auto 0.01 X10*3/uL (0.00-0.03); Imm Gran Pct Auto 0.2 % (0.0-0.4); Lymphocytes Absolute Auto 2.3 X10*3/uL (1.2-4.9); Lymphocytes Percent Auto 43.7 % (20-40); Mean Corpuscular HGB Conc 33.6 g/dl (31.0-35.0); Mean Corpuscular Hemoglobin 31.2 pg (27.0-33.0); Mean Platelet Volume 9.7 fL (9.4-12.3); Monocytes Absolute Auto 0.3 X10*3/uL (0.1-1.2); Neutrophils Absolute Auto 2.4 x10*3/uL (2.0-8.3); Neutrophils Percent Auto 44.5 % (45-73); Platelet Count 344 X10*3/uL (160-400); Red Blood Count 4.42 X10*6/uL (4.20-5.50); Red Cell Distribution Width 12.3 % (11.0-16.0); White Blood Count 5.3 X10*3/uL (4.8-10.8)
[2024-04-01 16:49] LABS: Bacteria Urine Trace (None Seen); Hyaline Casts Urine 0-2 /LPF (0-2); RBC Urine 0-2 /HPF (0-2); WBC Urine 0-5 /HPF (0-5)
[2024-04-01 17:17] LABS: Alanine Aminotransferase 21 U/L (0-31); Albumin Level 4.3 g/dL (3.5-5.0); Alkaline Phosphatase 67 U/L (39-117); Anion Gap 9 (12-20); Aspartate Amino Transferase 25 U/L (5-31); Bilirubin Total 0.6 mg/dL (0.0-1.0); Blood Urea Nitrogen 9 mg/dL (9-16); Carbon Dioxide 27 mmol/L (22-29); Chloride 106 mmol/L (96-108); Cholesterol 163 mg/dL (<200); Estimated Glomerular Filt Rate > 60; Glucose Fasting 83 mg/dL (60-99); HDL Cholesterol 58 mg/dL (>40); LDL Cholesterol Calculated 87 mg/dL (<100); Potassium 4.1 mmol/L (3.3-5.1); Sodium 138 mmol/L (135-145); Total Protein 6.9 g/dL (6.5-8.0); Triglycerides 92 mg/dL (<150)
[2024-04-01 17:24] LABS: TSH reflex Free T4 1.41 uIU/mL (0.32-4.0)
== END 2024-04-01 12:16 | disposition home or self-care (01) ==
LOC: HO.HMGCLDS 12:15
PROVIDERS: PCP Nurse Practitioner Family; Visit Provider Nurse Practitioner Family
DX: Z00.00 Encounter for general adult medical examination without abnormal findings (principal); R40.20 Unspecified coma; R00.2 Palpitations
CPT/HCPCS: 36415; 80053; 80061; 81001; 84443; 85025

== ENCOUNTER 2024-04-02 10:43 | Outpatient (AMB) | payer OTHER, SELFPAY ==
[2024-04-02 10:45] VITALS: BP 110/72; PULSE 76; O2SAT 98; BMI 20.8
--- NOTE | 2024-04-02 10:45 | A.OFFPC_ITS ---
Vital Signs 04/02/24 10:45 Height 5 ft 4 in Weight 121 lb BMI 20.8 BP 110/72 Blood Pressure Location Rt brachial Position Sitting Pulse 76 Pulse Source Pulse Oximeter Pulse Oximetry (%) 98 Intake Visit Reasons: PE Intake Note: pt is here for PE Inspector Water Pollution Control Required: No Accompanied by: Self / Same As Patient Allergies cephalexin Adverse Reaction (Verified 04/02/24 10:45) Anaphylaxis Penicillins Adverse Reaction (Verified 04/02/24 10:45) Anaphylaxis Tobacco use date assessed: 11/15/23 Dental Screening Dental Screen Date: 11/15/23 HPI PE HPI Details History of Present Illness The patient is a 28-year-old female presenting with concerns regarding her family history of breast cancer and a follow-up on previous breast biopsy results. The patient has two maternal aunts and one paternal aunt who were diagnosed with breast cancer in their 40s, raising her concerns about her own breast cancer risk. She previously underwent a breast biopsy after finding a lump, which was followed by imaging with an ultrasound. The results were unremarkable, but the patient remains vigilant about breast health. She has not undergone genetic testing for breast cancer but plans to discuss this with genetics appointment in the near future (EDS r/o original referral). The patient manages chronic anxiety, which she has experienced since childhood. She reports ongoing care with a therapist, aiding in managing symptoms. NOTE: labs were done already, + microhem, pt was menstruating during test Health Maintenance - Discussed the need for ongoing breast cancer surveillance due to the significant family history. 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 - Enquired about the flu vaccine; the pa marco agreed to receive it. - Advised limiting caffeine intake, conf irmed at one or two cups of tea daily. Social History - Exercise: The patient performs light w orkouts at night but avoids vigorous exercise due to past joint dislocations. - Employment: Enjoys current job, noting a positive work environment. - Caffeine Intake: Drinks one to two cup s of tea daily. - Mental Health: Continues therapy for a nxiety management. Review of Systems - Cardiovascular: Denies chest pain, den ies shortness of breath. - Gastrointestinal: Denies nausea, vomit ing, diarrhea, constipation, blood in stool. - Neurological: Denies numbness, tinglin g. - Psychological: Reports anxiety since c hildhood; ongoing psychotherapy involvement. Physical Exam General: Cooperative, healthy appearing, comfortable, no acute distress and well developed Orientation: Patient oriented x3 Limitations: No limitations Head: Normal to inspection Ears: Hearing grossly normal bilaterally Nose: Normal external nose present Face and sinus: Normal facial exam Eyes: Appearance normal, both eyes and all related structures Neck: Normal visual inspection and Yes full ROM Respiratory: Normal respiratory effort and able to speak in complete sentences. Clear to auscultation bilaterally Cardiovascular: Regular rate and rhythm. Normal S1 and S2 GI: Normal to inspection. Soft to palpation and nontender Skin: No rashes or lesions noted Neuro: Patient oriented x3 Extremities: Normal to inspection, but patient reports concerns about dislocations and hypermobility. Patient is super swollen and expresses fear of distalizing something at the gym. Results - Labs: No new lab results reviewed. - Tests and Diagnostics: No new imaging or diagnostic tests reviewed. Plan - Referral to a genetic counselor for fu rther discussion and potential testing related to the significant family history of breast cancer. - Continue annual breast screening with mammograms due to family history. - Manage anxiety through continued thera py. - Encourage stable exercise routine, foc using on joint-friendly activities to accommodate musculoskeletal hypermobility. - Administer the flu vaccination on toda y's visit. Patient was informed and verbally consented to the use of an ambient scribe for clinic note documentation during this visit. Discussion Notes We discussed the patient's family history of breast cancer and the importance of regular surveillance, including the consideration of genetic counseling given her family history. I recommended continuing her regular follow-up for breast health and encouraged discussing genetic testing further. Regarding her anxiety, we reviewed the patient's ongoing therapy sessions. We also highlighted the need for maintaining joint-friendly physical activity to manage her hypermobility symptoms effectively. Lastly, we agreed on administering the flu vaccine during the session today. The patient understands the importance of sharing relevant health information with all her healthcare specialists to keep communication open among care providers. Patient Instructions - Follow up with a genetic counselor for breast cancer risk assessment. - Continue with annual mammograms. - Maintain therapy sessions for anxiety management. - Limit physically strenuous activities to protect joint health. - Get the flu vaccine today. - Keep all specialists informed of relev [facility] health developments. [facility] Medical History Arthritis ADHD Depression Migraines Surgical History No pertinent past surgical history Family History Maternal Aunt Mental health disorder Breast cancer Mother Mental health disorder Paternal Aunt Breast cancer Social History Housing: House Alcohol intake: current Alcohol intake frequency: holidays/special occasions only Patient Tobacco Use Status: Never used Tobacco e-Cigarette/Vaping Use: Currently Using Substance Use Type: Marijuana service: No Current occupational status: employed Cognitive needs: No Hearing needs: No Vision needs: Yes Female Reproductive History Menstrual Age of Menarche: 17 Questionnaire PHQ-9 Over the last 2 weeks, how often have you been bothered by any of the following problems? [address]231 - PHQ-9 Billing: Patient declined-do not bill Source: Developed by Drs. Daren Crenshaw, Noy Larson, Sin Nguyen and colleagues, with an educational cinthia from [employer]. Thrive Questionnaire Date Thrive assessed: 04/02/24 I am a: Patient What is your living situation today?: I have a steady place to live Within the past 12 months, did the food you bought not last and you didn't have the money to get more?: Never true Within the past 12 months, did you worry whether your food would run out before you got money to buy more?: Never true Do you have trouble paying for medicines?: I choose not to answer this question Do you have trouble getting transportation to medical appointments?: No Do you have trouble paying your heating and electricity bill?: No Do you have trouble taking care of your child, family member or friend?: No Do you have trouble with day-to-day activities such as bathing, preparing meals, shopping, managing finances, etc.?: No Are you currently unemployed and looking for a job?: No Are you interested in more education?: No Please select the resources that you would like help with: None Currently or been in a relationship where the following occur: I choose not to answer THRIVE Score: 0 TYE-7 AMB Questionnaire TYE-7 Date TYE - 7 assessed: 04/02/24 Feeling nervous, anxious, or on edge: 2 = More than half the days Not being able to stop or control worryin = More than half the days Worrying too much about different things: 2 = More than half the days Trouble relaxin = More than half the days Being so restless that it is hard to sit still: 2 = More than half the days Becoming easily annoyed or irritable: 1 = Several days Feeling afraid as if something awful might happen: 3 = Nearly every day Total TYE-7 score (0-4 normal; 5-9 mild; 10-14 moderate; 15-21 severe): 14 Source: Developed by Drs. Daren Crenshaw, Noy Larson, Sin Nguyen and colleagues, with an educational cinthia from [employer]. TYE-7 Assessment Billing TYE-7 Assessment Tool: TYE-7 Assessment 74402 (has a therapist, denies any si or hi, works on meditation) Physical exam (Primary Care) Vital Signs: Last Vital Signs Pulse 76 04/02/24 10:45 BP 110/72 04/02/24 10:45 Pulse Ox 98 04/02/24 10:45 BMI result Body Mass Index 20.8 Tobacco/Smoking Status: Tobacco use Status Tobacco use date assessed 11/15/23 04/02/24 10:46 Patient Tobacco Use Status Never used Tobacco 04/02/24 10:46 e-Cigarette/Vaping Use Currently Using 04/02/24 10:46 Thrive Assessment: Date of Thrive Assessment Date Thrive assessed 04/02/24 04/02/24 10:46 Currently or been in a relationship where the following occur: I choose not to answer Coding Level of Care Code Est Pt Prev Care 18-39y(29341) Diagnoses Physical exam Z00.00 Additional Codes TYE-7 Assessment Billing - TYE-7 Assessment Tool: TYE-7 Assessment 70152 ([id number]) Assessment & Plan Assessment & Plan (1) Physical exam: Code(s): Z00.00 - Encounter for general adult medical examination without abnormal findings Category: Medical Plan . Orders: Orders Comprehensive [place]. Panel Fast Today Z00.00 - Encounter for general adult medical examination without abnormal findings Lipid Panel Today Z00.00 - Encounter for general adult medical examination without abnormal findings Complete Blood Count Auto Diff Today Z00.00 - Encounter for general adult medical examination without abnormal findings TSH reflex Free T4 Today Z00.00 - Encounter for general adult medical examination without abnormal findings UA CC w/rflx Micro + Cult Today Z00.00 - Encounter for general adult medical examination without abnormal findings Influenza 1258-3542 Immunization Today Z23 - Encounter for immunization Medications: New Fluarix Triv [id number] (PF) (flu vacc [id number] 6mos up(PF)) 0.5 mL IM ONCE 0.5 mL 0RF NS Z23 - Encounter for immunization
== END 2024-04-02 11:27 | disposition home or self-care (01) ==
PROVIDERS: PCP Nurse Practitioner Family; Visit Provider Nurse Practitioner Family
DX: Z00.00 Encounter for general adult medical examination without abnormal findings (principal); Z23 Encounter for immunization

== ENCOUNTER → 2024-04-02 10:43 | Outpatient (BNVA) | payer OTHER, SELFPAY | PROVIDERS: PCP Nurse Practitioner Family; Visit Provider Nurse Practitioner Family | DX: Z00.00 Encounter for general adult medical examination without abnormal findings (principal); Z80.3 Family history of malignant neoplasm of breast; Z23 Encounter for immunization | CPT/HCPCS: 90471; 90656; 96127; 99395 ==

== ENCOUNTER 2024-08-29 10:51 | Outpatient (REF) | payer OTHER, SELFPAY ==
--- OUTSIDE RECORDS SUMMARY | 2024-08-29 13:38 | XMS_ITS | Encounter Summary ---
Author Organization [facility] Address [address] [place] [address] Phone Care Team Providers Care Boxing Inspector Name Role Phone Unavailable Primary Care Provider Unavailabl e Reason for Visit * Reason Comments Med Refill Encounter Details Date Type Department Care Team (Late st Contact Info) Description 02/09/2019 Refill [facility] [address] [place] [address] Arely Murrell MD [address] [place] [address] [address] [place] [address] Oral contraceptive pill surveillance Social History Tobacco [...]
--- OUTSIDE RECORDS SUMMARY | 2024-08-29 13:38 | XMS_ITS | Encounter Summary ---
Author Organization [facility] Address [address] [place] [phone] Phone Care Team Providers Care Cardroom Manager Name Role Phone Arely Murrell MD Primary Care Provider [phone] Encounter Details Date Type Department Care Team (Late st Contact Info) Description 03/08/2010 Nurse Only [facility], [address] [address] Social History Tobacco Use Types Packs/Day Years [...] 2010 03:20 pm Provider: Magaly Christensen LPN (Hand Sample Maker: Aj Tan MD; Adjunct Sociology Professor: Magaly Christensen LPN) Location: [facility]. ECTIVE: CC: She is here for [...] CAPTURE: Primary Diagnosis: V081 Flu Clinic Orders: 25996 Influenza virus vaccine, split virus, preservative free, > 3 years, for intramuscular use 62051 Immunization administration (includes percutaneous, intradermal, subcutaneous or intramuscular injec documented in this encounter Plan of Treatment Not on file documented as of this encounter Visit Diagnoses Not on filedocumented in this encounter Care Teams Cardroom Manager Relationship Specialty Start Date End Date Arely Murrell MD [address] [place] [address] [address] [place] [address] PCP - General Pediatrics 03/21/17 02/06/19 documented as of this encounter
--- OUTSIDE RECORDS SUMMARY | 2024-08-29 13:38 | XMS_ITS | Encounter Summary ---
Author Organization [facility] Address [address] [place] [address] Phone Care Team Providers Care Supervisor [employer] Name Role Phone Unavailable Primary Care Provider Unavailabl e Reason for Visit * Reason Comments Med Refill Encounter Details Date Type Department Care Team (Late st Contact Info) Description 02/24/2019 Refill [facility] [address] [address] [place] [address] Arely Murrell MD [address] [place] [address] [address] [place] [address] Oral contraceptive pill surveillance Social History Tobacco [...]
--- OUTSIDE RECORDS SUMMARY | 2024-08-29 13:38 | XMS_ITS | Encounter Summary ---
Author Organization [facility] Address [address] [place] [address] Phone Care Team Providers Care General Merchandise Manager Name Role Phone Arely Murrell MD Primary Care Provider [phone] Reason for Visit * Reason Comments Med Refill Encounter Details Date Type Department Care Team (Late st Contact Info) Description 03/21/2018 Refill [facility] [address] [address] [place] [address] Arely Murrell MD [address] [place] [address] 2 [place] [address] Oral contraceptive pill surveillance Social History Tobacco [...] surveillance documented in this encounter Care Teams General Merchandise Manager Relationship Specialty Start Date End Date Arely Murrell MD [address] [place] [address] 2 [place] [address] PCP - General Pediatrics 03/21/17 02/06/19 documented as of this encounter
--- OUTSIDE RECORDS SUMMARY | 2024-08-29 13:38 | XMS_ITS | Clinical Summary ---
Author Organization [facility] Address [address] [place] [address] Phone Care Team Providers Care Dropper Tank Storage Name Role Phone Unavailable Primary Care Provider [...] complete this topic Procedures * Due to [place] STARFACE law, this organization might not be sharing sensitive test results. Procedure Name Priority Date/Time Associated Diagnosis Comments CHLAMYDIA TRACHOMATIS, AMPLIFIED Routine 11/15/2017 10:32 AM EDT Encounter for screening examination for sexually transmitted disease from Last 3 Months or Most Recently Relevant to Health Maintenance Results * Due to [place] STARFACE law, this organization might not be sharing sensitive test results. * Chlamydia trachomatis, Amplified (11/15/2017 10:32 AM EDT) Chlamydia Trachomatis, DNA Probe NEGATIVE (NEG) [facility] Comment: No Chlamydia Trachomatis RNA detected in this patient's sample ? (REFERENCE RANGE/NORMAL VALUE: NOT DETECTED) ? Note: This test uses freelance translator- mediated amplification method to detect rRNA from C. Trachomatis Testing performed or reported by [facility], a Service of [facility], Kira [address], [place], [place] [address] CLIA ??[id number] Sruthi Engel MD, PhD, Paraffin Plant Operator Urine (Urine) 11/15/2017 10: 32 AM EDT 11/15/2017 6:17 PM EDT us Arely Murrell MD LAB BLOOD ORDERABLES Final Resul t [facility] from Last 3 Months or Most Recently Relevant to Health Maintenance
--- OUTSIDE RECORDS SUMMARY | 2024-08-29 13:39 | XMS_ITS | Encounter Summary ---
Author Organization [facility] Address [address] [place] [address] Phone Care Team Providers Care Senior It Project Manager Name Role Phone Arely Murrell MD Primary Care Provider [phone] Encounter Details Date Type Department Care Team (Late st Contact Info) Description 04/14/2011 Nurse Only [address] [address] Social History Tobacco Use Types Packs/Day Years [...] 2011 01:37 pm Provider: Madelyn Galaviz RN (Behavior Therapist: Zena Jack MD; Software Developer Mid Level: Madelyn Galaviz RN) Location: [facility]. ECTIVE: CC: She is here for the [...] CAPTURE: Primary Diagnosis: V04.81 Flu Clinic Orders: [id number] Influenza virus vaccine, split virus, preservative free, > 3 years, for intramuscular use 02134 Immunization administration (includes percutaneous, intradermal, subcutaneous or intramuscular injec documented in this encounter Plan of Treatment Not on file documented as of this encounter Visit Diagnoses Not on filedocumented in this encounter Care Teams Senior It Project Manager Relationship Specialty Start Date End Date Arely Murrell MD [address] [place] [address] PCP - General Pediatrics 03/21/17 02/06/19 documented as of this encounter
[2024-08-30 09:44] LABS: Bacterial Vaginosis PCR NEGATIVE (Negative); Candida Group PCR NOT DETECTED (Not Detect); Candida glab krusei PCR NOT DETECTED (Not Detect); Trichomonas vaginalis PCR NOT DETECTED (Not Detect)
[2024-08-30 10:15] LABS: CT PCR NOT DETECTED (Not Detect.); NG PCR NOT DETECTED (Not Detect.)
== END 2024-08-29 10:52 | disposition home or self-care (01) ==
LOC: HO.LNP 10:51
PROVIDERS: PCP Nurse Practitioner Family; Visit Provider Advanced Practice Midwife
DX: Z01.419 Encounter for gynecological examination (general) (routine) without abnormal findings (principal)
CPT/HCPCS: 81515; 87491; 87591; 99395; 99459

== ENCOUNTER 2024-08-29 10:51 | Outpatient (AMB) | payer OTHER, SELFPAY ==
--- NOTE | 2024-08-29 10:54 | A.OFFVIS_ITS ---
Vital Signs 08/29/24 11:01 Height 5 ft 4 in Weight 119 lb BMI 20.4 BP 102/70 Intake Visit Reasons: Yearly appointment and control refil Central Service Tech: Central Service Tech Present (Lamar) Accompanied by: Self / Same As Patient Allergies cephalexin Adverse Reaction (Verified 04/02/24 10:45) Anaphylaxis Penicillins Adverse Reaction (Verified 04/02/24 10:45) Anaphylaxis Medication List - Last Reconciled 08/29/24 by Marjorie Morillo CNM escitalopram oxalate 10 mg PO DAILY levonorgestrel-ethinyl estrad 0.1-20 mg-mcg (Sronyx) 1 tab PO DAILY methylphenidate HCl ER (Concerta) 18 mg PO DAILY Is last menstrual period known: Yes Last menstrual period: 08/14/24 Post menopausal: No Patient : No HPI HPI Yearly appointment and control refil: Details: 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 And she also needs refills on her control pills she missed her last appointment in an error with the appointments and was about to run out of pills so [facility] get a three-month refill on her pills. She likes the pills she needs to continue them. She is not having any concerns about STDs but she is open to testing just to be sure. Her Pap smear was done last year and it was negative so she is not due this year.. LMP 2 weeks ago. 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 [facility] Medical History Arthritis ADHD Depression Migraines Surgical History No pertinent past surgical history Family History Maternal Aunt Mental health disorder Breast cancer Mother Mental health disorder Paternal Aunt Breast cancer Social History Housing: House Alcohol intake: current Alcohol intake frequency: holidays/special occasions only Patient Tobacco Use Status: Never used Tobacco e-Cigarette/Vaping Use: Currently Using Substance Use Type: Marijuana service: No Current occupational status: employed Cognitive needs: No Hearing needs: No Vision needs: Yes Female Reproductive History Menstrual Age of Menarche: 17 Duration of menses: 3-5 days Date of last menstrual period: 08/14/24 control method: pills (Sronyx ) Total pregnancies: 0 Date of last pap smear: 06/27/23 (negative pap smear) History of abnormal pap smear: No History of STI: No Physical Exam Vital Signs: Last Vital Signs BP 102/70 08/29/24 11:01 BMI result Body Mass Index 20.4 Const General: healthy appearing, comfortable, no acute distress, well developed and alert Nutritional Appearance: average body habitus Orientation/consciousness: patient oriented x3 Limitations: no limitations HEENT Head: Yes normocephalic Neck Neck: Yes normal visual inspection Chest Chest palpation & inspection: normal inspection of the chest Breast/axilla inspection: normal inspection of the breasts and normal inspection of the axillae Breast/axilla palpation: normal palpation of the breasts and normal palpation of the axillae Resp Effort & Inspection: normal respiratory effort GI Inspection: Yes normal to inspection, No Abdominal wall edema and No distended Palpation (GI): Soft to palpation and nontender Other: External exam within normal limits evidence of healing folliculitis on labia majora left side. Patient says she waxes. Vagina pink and moist very normal healthy appearing scant white mucus consistent with OCP use cervix nulliparous long close thick pink mobile nontender uterus small anteverted to midposition mobile nontender adnexa nontender nonenlarged good tone with Kegel. General: Yes bladder normal to palpation External Female Exam: normal external appearance and normal appearance of the urethra Speculum Exam - Vagina: normal appearance of the vagina, normal palpation and normal vaginal discharge Speculum Exam - Cervix: normal appearance of the cervix, normal palpation and nontender Bimanual exam- vagina & uterus: normal bimanual exam, normal palpation, uterine size normal, bladder normal to palpation, consistency normal, normal palpation, uterine mobility normal, uterine shape normal, No Cervical tenderness present, non-tender and no cervical motion tenderness Bimanual Exam- Adnexa, other: normal adnexae, no masses, normal and No adnexal tenderness Neuro General: patient oriented x3 Assessment & Plan Assessment & Plan (1) Screening for cervical cancer: Comment: 06/26/22 pap=negative..... Code(s): Z12.4 - Encounter for screening for malignant neoplasm of cervix Category: Medical (2) Well woman exam with routine gynecological exam: Code(s): Z01.419 - Encounter for gynecological examination (general) (routine) without abnormal findings Category: Medical (3) Family planning counseling: Code(s): Z30.09 - Encounter for other general counseling and advice on contraception Category: Medical (4) Surveillance for control, oral contraceptives: Code(s): Z30.41 - Encounter for surveillance of contraceptive pills Category: Medical Plan -----Discussed in this visit the following: healthy balanced diet, regular and consistent exercise, getting recommended health screens, doing the best she can for her particular health concerns, kegel exercises, pap smear screening and followup recommendations, mammography screening and SBE, normal changes in cycles in her life stage--- . She is happy on these pills she was able to [facility] so she did not have to run out she said she did not actually call our office but the pharmacy I told her that she would need another visit so that is [facility]. Reviewed that since she is young and healthy is a nonsmoker and does not have any health issues it is my belief that women should never run out of control for a late appointment reason but I am glad that she took care of her control needs in a timely fashion so she was not caught discussed use of condoms should anything ever happened with insurance or anything else. I am refilling her prescription for another year plus, with three-month refills with 4 refills. Reviewed danger signs thromboembolic events and precautions. RTC 1 year. She declined any extra testing for STI other than what was done during the visit reviewed her anatomy with her.. In conversation told her her last Pap was last year, but it was in 2022, so her next Pap would be next year Orders: Orders CT NG by PCR 08/29/24 Z12.4 - Encounter for screening for malignant neoplasm of cervix Bacterial Vaginosis Panel 08/29/24 Z12.4 - Encounter for screening for malignant neoplasm of cervix Medications: Refilled levonorgestrel-ethinyl estrad 0.1-20 mg-mcg (Sronyx) 1 tab PO DAILY 84 tabs 4RF Coding Level of Care Code Est Pt Prev Care 18-39y(46727) Diagnoses Screening for cervical cancer Z12.4 Well woman exam with routine gynecological exam Z01.419 Family planning counseling Z30.09 Surveillance for control, oral contraceptives Z30.41
[2024-08-29 11:01] VITALS: BP 102/70; BMI 20.4
--- OUTSIDE RECORDS SUMMARY | 2024-08-29 11:59 | XMS_ITS | Encounter Summary ---
Author Organization [facility] Address [address] [place] [id number] Phone Care Team Providers Care Hospice Clinical Marketer Name Role Phone Arely Murrell MD Primary Care Provider [phone] Encounter Details Date Type Department Care Team (Late st Contact Info) Description 03/08/2010 Nurse Only [facility], [address] [address] Social History Tobacco Use Types Packs/Day Years Used Date Smoking Tobacco: Never Assessed Comments Unknown Sex and Gender Information Value Date Recorded Sex Assigned at Not on file Legal Sex Female 4:10 PM EST Gender Identity Not on file Sexual Orientation Not on file documented as of this encounter Nursing Notes * UNKNOWN, HISTORICAL - 03/08/2010 3:20 PM EST Rajesh Hollis. 1995 NURSE NOTE/VERBAL ORDERS Office/Outpatient Visit Visit Date: Mar 08, 2010 03:20 pm Provider: Magaly Christensen LPN (Medical And Health Services Manager: Aj Tan MD; [employer] Bi Consultant: Magaly Christensen LPN) Location: [facility]. ECTIVE: CC: She is here for the Flu Clinic. HPI: Pt enters with Mom. No known chronic health conditions. Fever or illness is not present today. No trouble breathing or hives after eating eggs She has not had a reaction to the flu vaccine or other immunization. Flu vaccine VIS was given today.(interim 11/24/09) There were no questions or concerns voiced at today's visit. OBJECTIVE: Exams: GENERAL APPEARANCE: Alert, active, looks well, mood appropriate ASSESSMENT: V04.81 Flu Clinic ORDERS: Procedures Ordered: Influenza virus vaccine, split virus, preservative free, > 3 years, for intramuscular use Immunization administration (includes percutaneous, intradermal, subcutaneous or intramuscular injec PLAN: Flu Clinic Influenza vaccine > 3 yr (Preservative Free) given No contraindications noted for flu vaccines. Tolerated well, left office in good condition. Orders: Influenza virus vaccine, split virus, preservative free, > 3 years, for intramuscular use Immunization administration (includes percutaneous, intradermal, subcutaneous or intramuscular injec CHARGE CAPTURE: Primary Diagnosis: V081 Flu Clinic Orders: [id number] Influenza virus vaccine, split virus, preservative free, > 3 years, for intramuscular use [id number] Immunization administration (includes percutaneous, intradermal, subcutaneous or intramuscular injec documented in this encounter Plan of Treatment Not on file documented as of this encounter Visit Diagnoses Not on filedocumented in this encounter Care Teams Hospice Clinical Marketer Relationship Specialty Start Date End Date Arely Murrell MD [address] [place] [address] [address] [place] [address] PCP - General Pediatrics 03/21/17 02/06/19 documented as of this encounter
--- OUTSIDE RECORDS SUMMARY | 2024-08-29 12:00 | XMS_ITS | Encounter Summary ---
Author Organization [facility] Address [address] [place] [phone] Phone Care Team Providers Care Mold Filler Plastic Dolls Name Role Phone Unavailable Primary Care Provider Unavailabl e Reason for Visit * Reason Comments Med Refill Encounter Details Date Type Department Care Team (Late st Contact Info) Description 02/09/2019 Refill [facility] [address] [place] [address] Arely Murrell MD [address] [place] [address] [address] [place] [address] Oral contraceptive pill surveillance Social History Tobacco Use Types Packs/Day Years Used Date Smoking Tobacco: Never Smokeless Tobacco: Never Comments:Never Smoker Comments No Sex and Gender Information Value Date Recorded Sex Assigned at Not on file Legal Sex Female 4:10 PM EST Gender Identity Not on file Sexual Orientation Not on file documented as of this encounter Miscellaneous Notes * Telephone Encounter - Anyi Larson MA - 02/11/2019 10:46 AM EDT Pt has transferred out. documented in this encounter Plan of Treatment Not on file documented as of this encounter Visit Diagnoses Diagnosis Oral contraceptive pill surveillance documented in this encounter
--- OUTSIDE RECORDS SUMMARY | 2024-08-29 12:00 | XMS_ITS | Encounter Summary ---
Author Organization [facility] Address [address] [place] [address] Phone Care Team Providers Care Animal Scientist Name Role Phone Unavailable Primary Care Provider Unavailabl e Reason for Visit * Reason Comments Med Refill Encounter Details Date Type Department Care Team (Late st Contact Info) Description 02/24/2019 Refill [facility] [address] [place] [address] Arely Murrell MD [address] [place] [place] [address] [address] [place] [address] Oral contraceptive pill surveillance Social History Tobacco [...] Telephone Encounter - Anyi Larson MA - 02/27/2019 10:48 AM EST Pt transferred out documented in this encounter Plan of Treatment Not on file documented as of this encounter Visit Diagnoses Diagnosis Oral contraceptive pill surveillance documented in this encounter
--- OUTSIDE RECORDS SUMMARY | 2024-08-29 12:00 | XMS_ITS | Clinical Summary ---
Author Organization [facility] Address [address] [place] [phone] Phone Care Team Providers Care Operations Business Partner Name Role Phone Unavailable Primary Care Provider Unavailabl e Allergies No known active allergies Medications buPROPion SR (WELLBUTRIN SR) 100 MG 12 hr tablet Take 100 mg by mouth once daily. 0 7 Active escitalopram 10 MG tablet Take 10 mg by mouth daily. 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 Assessment & Plan (11/15/2017 9:57 AM EDT): As per med provider Migraine without aura 05/29/2012 Overview (11/15/2017): Not frequent, Excedrin helps and sleep, triggered by movies. Resolved Problems Problem Noted Date Diagnosed Date Resolved Date Closed fracture of metatarsal bone 06/06/2017 11/15/2017 Surveillance of previously p rescribed contraceptive pill 12/19/2013 11/15/2017 Immunizations Immunization Administration Dates Next Due DTP 1995 DTaP 5 12/06/1999, 8,05/20/1996,03/07 H1N1 Nasal 02/19/2009 HPV, Quadrivalent 11/16/2010,11/10/2009,10/17/19 09 Hep A, Adult 11/15/2017 Hep B, ped/adol 07/26/1996,1995,1995 Hib (HbOC) 02/07/1997, 7,03/07/1996,12/13 IPV 12/06/1999 Influenza, injectable, quadrivalent 03/01/2017,1 06/08/2015 Influenza, injectable, triva lent, preservative free 02/24/2015,12/19/2013,02/05/2013,04/14,03/08/2010 MMR 10/06/2000,02/07/1997 Meningococcal B Bexsero 07/05/2017,03/17/2017 Meningococcal Conj (Menactra) MCV4P 11/23/2011,0 10/16/2008 OPV 05/20/1996,03/07/1996,1995 Tdap 11/15/2017,10/05/2007 Varicella 10/05/2007,02/07/1997 Social History Tobacco Use Types Packs/Day Years Used Date Smoking Tobacco: Never Smokeless Tobacco: Never Comments:Never Smoker Comments No Sex and Gender Information Value Date Recorded Sex Assigned at Not on file Legal Sex Female 4:10 PM EST Gender Identity Not on file Sexual Orientation Not on file Last Filed Vital Signs Vital Sign Reading Time Taken Comments Blood Pressure 120/76 02/20/2018 2:52 PM EST Pulse 84 02/20/2018 2:52 PM EST Temperature 37.3 ??C (99.2 ??F) 02/20/2018 2:52 PM ES T Respiratory Rate 20 02/20/2018 2:52 PM EST Oxygen Saturation 99% 02/20/2018 2:52 PM EST Inhaled Oxygen Concentration - - Weight 50.8 kg (112 lb) 02/20/2018 2:52 PM EST Height 162.6 cm (5' 4 ) 11/15/2017 9:35 AM EDT Body Mass Index 19.22 11/15/2017 9:35 AM EDT Plan of Treatment Health Maintenance Due Date Last Done Comments Influenza Vaccines (#1) 2023 03/01/20 17, 04/07/2016, 02/24/2015, Additional history exists COVID-19 Vaccine (2023- season) 2023 DTaP,Tdap,and Td Vaccines (8 - Td or Tdap) 11/16/2027 11/15/2017, 10/05/2007, 12/06/1999, Additional history exists Hepatitis B Vaccines Completed 07/26/1996, 1995, 1995 HIB Vaccines Completed 02/07/1997, 06/1996, 03/07/1996, Additional history exists IPV Vaccines Completed 12/06/1999, 06/1996, 03/07/1996, Additional history exists MMR Vaccines Completed 10/06/2000, 02/07/1997 Varicella Vaccines Completed 10/05/2007, 02/07/1997 HPV Vaccines Completed 11/16/2010, 10/16, 10/16/2008 Meningococcal Vaccine Completed 11/23/2011, 009 Men B Vaccine Completed 07/05/2017, 03/17/2017 Hepatitis A Vaccines Aged Out 11/15/2017 No long er eligible based on patient's age to complete this topic Pneumococcal Vaccine Aged Out No long er eligible based on patient's age to complete this topic Procedures * Due to [place] law, this organization might not be sharing sensitive test results. Procedure Name Priority Date/Time Associated Diagnosis Comments CHLAMYDIA TRACHOMATIS, AMPLIFIED Routine 11/15/2017 10:32 AM EDT Encounter for screening examination for sexually transmitted disease from Last 3 Months or Most Recently Relevant to Health Maintenance Results * Due to [place] law, this organization might not be sharing sensitive test results. * Chlamydia trachomatis, Amplified (11/15/2017 10:32 AM EDT) Chlamydia Trachomatis, DNA Probe NEGATIVE (NEG) [facility] Comment: No Chlamydia Trachomatis RNA detected in this patient's sample ? (REFERENCE RANGE/NORMAL VALUE: NOT DETECTED) ? Note: This test uses transfer and pumphouse operator- mediated amplification method to detect rRNA from C. Trachomatis Testing performed or reported by [facility], a Service of [facility], [address], [place], [place] [address] CLIA ??[id number] Sruthi Engel MD, PhD, Snowboard Designer Urine (Urine) 11/15/2017 10: 32 AM EDT 11/15/2017 6:17 PM EDT us Arely Murrell MD LAB BLOOD ORDERABLES Final Resul t [facility] from Last 3 Months or Most Recently Relevant to Health Maintenance
--- OUTSIDE RECORDS SUMMARY | 2024-08-29 12:00 | XMS_ITS | Encounter Summary ---
Author Organization [facility] Address [address] [place] [phone] Phone Care Team Providers Care Forensic Science Technician Name Role Phone Arely Murrell MD Primary Care Provider [phone] Reason for Visit * Reason Comments Med Refill Encounter Details Date Type Department Care Team (Late st Contact Info) Description 03/21/2018 Refill [facility] [address] [place] [address] Arely Murrell MD [address] [place] [address] 2 [place] [address] Oral contraceptive pill surveillance Social History Tobacco Use Types Packs/Day Years Used Date Smoking Tobacco: Never Smokeless Tobacco: Never Comments:Never Smoker Comments No Sex and Gender Information Value Date Recorded Sex Assigned at Not on file Legal Sex Female 4:10 PM EST Gender Identity Not on file Sexual Orientation Not on file documented as of this encounter Plan of Treatment Not on file documented as of this encounter Visit Diagnoses Diagnosis Oral contraceptive pill surveillance documented in this encounter Care Teams Forensic Science Technician Relationship Specialty Start Date End Date Arely Murrell MD [address] [place] [address] 2 [place] [address] PCP - General Pediatrics 03/21/17 02/06/19 documented as of this encounter
--- OUTSIDE RECORDS SUMMARY | 2024-08-29 12:00 | XMS_ITS | Data Portability ---
Author Organization [facility] [address] Address [address] [place] [address] Care Team Providers Care Body Artist Name Role Phone LUIS LPOEZ Primary Care Provider Assessment Encounter Date Assessment [...] Orders prednisone 10 mg tablet 2023 024 [facility]acy #[id number], [address] [place], [address], 10:07:31 hydroxyzine HCl 25 mg tablet 2023 024 [facility]armacy #[id number], [address] [place], [address], 10:07:30 Patient TargetsNo targets recorded. Patient Instructions Encounter Date Encounter Id Patient Instructions Last Modified By Organization Details Last Modified Time 08/18/2023 [id number] bruises: care instructions aniceto Not available 08/18/2023 16:24:56 09/04/2023 [id number] Poison Tracee Rash ??? Follow these important instructions: ??? [...] - Learn to recognize poison oak, poison tracee, and ragweed, and avoid contact with them. - Use hypoallergenic cosmetics. - Pat your skin dry instead of rubbing it. - Try to avoid using solvents and chemicals, and wear heavy gloves when you must use them. - Use a mail clerk bills, or wear rubber gloves when you wash [...] Address Organization Details Recorded Time Depressive disorder 76684306 Active Fiona Fritch null, [place] - [facility] 4 16:08:36 Attention deficit hyperactivity disorder 360911814 Active Fiona Fritch null, [place] - [facility] 4 16:09:18 Superficial contusion of skin of thigh 724507043 Active 2023 DONNY SMITH NP [address] , [place], [address], [place] - [facility] 4 16:21:24 Contact dermatitis caused by urushiol from [facility] tracee 753933601 Active 2023 Vijay Swain NP [address] , [place], [address], [place] - [facility] 4 10:05:53 Problem Notes None recorded. Medical Equipment None Reported. Allergies Allergen ID Allergen Name Allergen Category Reaction Reaction Severity Criticality Documentation Date Start Date Code Code System Note Provider Name and Address Organization Details Recorded Time 579681 cephalexi n medicatio n Not available Not available Not available 08/18/2023 2231 RxNorm Fiona Fritch null, [place] - [facility] 4 16:07:06 066752 Product containin g penicilli n (product) medicatio n Not available Not available Not available 08/18/2023 91950 8001 SNOMED Fiona Fritch null, [place] - [facility] 4 16:07:14 Medications Name Sig Start Date Stop Date Status Note LastModified by Organization Details LastModified Time prednisone 10 mg tablet start 6 tabs x 3 days then 4 tabs x 3 days then 3 tabs x 3 days, then 2 tabs x 3 days, then 1 tab x 3 days, then stop. 024 active Not Available Not Available Not [...] Updated DateTime 4 162.56 cm 19.9 kg/m2 12853.7 1 g 97.3 [degF] 16 /min 100 % 100 % 76 /min 112 mm[Hg] 80 mm[Hg] Fiona Banuelos [facility] 4 16:12:28 Date Recorded Body height Body mass index (BMI) Body weight Oxygen saturation Oxygen saturation in Arterial blood by Pulse oximetry Pain severity - 0-10 verbal numeric rating [Score] - Reported Heart rate Respiratory rate Body temperature Systolic blood pressure Diastolic blood pressure Provider Name and Address Organization Details Last Updated DateTime 4 162.56 cm 19.9 kg/m2 71573.7 1 g 99 % 99 % 0 86 /min 18 /min 98.6 [degF] 116 mm[Hg] 80 mm[Hg] Nicolasa Knight [facility] - [facility] 4 09:58:36 Social History None recorded. Functional Status Question Answer Note LastModified by Organizat ion Details LastModified Time What is your level of alcohol consumption? Occasional [email or web address] Information not available 08/18/2023 Mental Status None recorded. Family History Relationship [...] Diagnosis/Indication Diagnosis SNOMED-CT Code Diagnosis ICD10 Code Diagnosis Note [id number] [address] [place] [address] 01/04/2021 15:03:08 01/04/2021 16:58:20 [id number] [address] [place] [address] 11/25/2018 10:40:44 11/25/2018 10:55:29 [id number] [address] [place] [address] 12/04/2020 15:09:57 12/04/2020 16:33:32 [id number] [address] [place] [address] 06/02/2017 17:12:23 06/02/2017 18:30:13 [id number] [address] [place] [address] 12/24/2020 12:34:44 12/24/2020 14:50:51 [id number] DONNY SMITH NP [address] [place] [address] 08/18/2023 15:49:38 08/18/2023 16:27:50 Superficial contusion of skin of thigh 857437284 S70.12XA [id number] Vijay Swain NP [address] [place] [address] 09/04/2023 09:51:02 09/04/2023 10:08:54 Contact dermatitis caused by urushiol from [facility] tracee 007235187 L25.5 Based on your presentati on and exam - I am diagnosis you with Contact Dermatitis This most likely can be related to dyes or environmen alondra exposures. The following recommenda tions will help you with your symptoms.: 1. Cool Compresses to the itchy areas. Heat will only make the rash.2. Do not scratch or itch - this can lead to infection. 3. Take Antihistam tonja - like benadryl - this will help - but when the medication s wear off the redness might return. You need to go directly to the ER if you develop:1. Wheezing2. Throat or tongue swelling3. Difficulty breathing4 . If you pass out. Health Concerns Section Related Observation LastModified by Organization Detai ls LastModified Time None Recorded Concern Status LastModified by Organization Details LastModified Time None Recorded Advance Directives Directive None Recorded Payers Insurance Date Sequence Insurance Name Policy Number Policy Donis Covered Member ID Donis Member ID Guarantor Name 09/04/2023 1 [facility] (MEDICAID REPLACEMENT - O) ALDO Hollis [id number] Rajesh Hollis 08/18/2023 1 [facility] (O) [id number] Ignacio Hollis [id number] Rajesh Hollis Notes Date Note Type Note Provider Name and Address Organization Details Recorded Time 4 text/html Skin Redness UCReported bypatient.Location:left legs; left lateral thigh bruise unknown origin thinks is a spider bite no pain discoloration Quality:erythematous Severity:worsening Duration: Onset:gradual onset Symptoms:no fever; no nausea; no vomiting DONNY SMITH NP [address] [place], [address], [place] - [facility] 08/18/2023 16:29:46 4 text/html UC Rash/Skin LesionReported [...] work . also have history of poison Tracee dermatitis previously Vijay Swain NP [address] [place], [address], [place] - [facility] 09/04/2023 10:08:32 OBGyn Episode No OBEpisode recorded.
--- OUTSIDE RECORDS SUMMARY | 2024-08-29 12:01 | XMS_ITS | Encounter Summary ---
Author Organization [facility] Address [address] [place] [address] Phone Care Team Providers Care Wind Instrument Repairer Name Role Phone Arely Murrell MD Primary Care Provider [phone] Encounter Details Date Type Department Care Team (Late st Contact Info) Description 04/14/2011 Nurse Only [address] [address] Social History Tobacco Use Types Packs/Day Years Used Date Smoking Tobacco: Never Comments:Never Smoker Comments Unknown Sex and Gender Information Value Date Recorded Sex Assigned at Not on file Legal Sex Female 4:10 PM EST Gender Identity Not on file Sexual Orientation Not on file documented as of this encounter Nursing Notes * UNKNOWN, HISTORICAL - 04/14/2011 1:37 PM EST Rajesh Hollis. 1995 NURSE NOTE/VERBAL ORDERS Office/Outpatient Visit Visit Date: Apr 14, 2011 01:37 pm Provider: Madelyn Galaviz RN (Director Life Sciences: Zena Jack MD; Veterinary Milk Specialist: Madelyn Galaviz RN) Location: [facility]. ECTIVE: CC: She is here for the Flu Clinic. Presents with Mom HPI: No known chronic health conditions. Fever or illness is not present today. No trouble breathing or hives after eating eggs She has not had a reaction to the flu vaccine or other immunization. Flu vaccine VIS was given today.(interim 11/09/10) There were no questions or concerns voiced at today's visit. OBJECTIVE: Exams: GENERAL APPEARANCE: Alert, active, looks well, mood appropriate RESPIRATORY: Normal respiratory rate and pattern with no distress ASSESSMENT: V04.81 Flu Clinic ORDERS: Procedures Ordered: [...] or intramuscular injec CHARGE CAPTURE: Primary Diagnosis: V04.81 Flu Clinic Orders: 23909 Influenza virus vaccine, split virus, preservative free, > 3 years, for intramuscular use 03977 Immunization administration (includes percutaneous, intradermal, subcutaneous or intramuscular injec documented in this encounter Plan of Treatment Not on file documented as of this encounter Visit Diagnoses Not on filedocumented in this encounter Care Teams Wind Instrument Repairer Relationship Specialty Start Date End Date Arely Murrell MD [address] [place] [address] PCP - General Pediatrics 03/21/17 02/06/19 documented as of this encounter
--- OUTSIDE RECORDS SUMMARY | 2024-08-29 12:01 | XMS_ITS | Data Portability ---
Author Organization [facility], [facility] Address [address] [place] [address] Care Team Providers Care Cyber Incident Responder Name Role Phone CARIDAD HERNANDEZ Psychiatrist Assessment Encounter Date Assessment Date Assessment LastModified by Organization Details LastModified Time 06/23/2020 06/23/2020 Patient agreed to this visit via a secure telehealth platform due to the COVID -19 pandemic. Patient understands this is a scheduled visit and the usual procedures with regard to billing and confidentiality apply. Patient was notified that the provider location is [facility] Patient location: home During the visit the patient? s medical history and medical record were reviewed. The patient was notified to call our office for worsening or urgent symptoms. Video: 15 minutes The care for this patient today involved the following: I have reviewed, collected, and updated relevant history and performed a physical exam. An independent historian was used to obtain history Y. My assessment of Social Determinants of health: not at risk. My care of this patient involved: moderate Assessment of problems. moderate Review of data moderate Complexity of risk from disease or treatments Below is my assessment and plan for this patient? s care today. [email or web address] Not available 06/23/2020 12:33:37 11/23/2021 11/23/2021 After a discussion of treatment options, which included consideration of best practices and patient preferences, the following treatment plan and objectives were adopted: [email or web address] Not available 11/23/2021 09:45:52 03/01/2022 03/01/2022 After a discussion of treatment options, which included consideration of best practices and patient preferences, the following treatment plan and objectives were adopted: [email or web address] Not available 03/01/2022 17:00:45 Plan of Treatment Reminders Order Date Submit Date Provider Last Modified By Organization Details Last Modified Time Details Appointments None recorded. [email or web address] [address] [place] [address], [address], 13:08:25 TSH, serum or plasma 2020 021 [facility], [address] [place] [address], [address], 15:36:58 ferritin, serum or plasma 2020 021 [facility], [address] [place] [address], [address], 15:11:05 vitamin B12, serum 2020 021 [facility], [address] [place] [address], [address], 14:23:59 vitamin D, 25-hydrox y, total, serum 2020 021 [facility], [address] [place] [address], [address], 15:36:59 pap, LB + reflex to HR HPV if ASC-U - Pap, LB with Reflex to HPV is ASCUS - if HPV positive reflex to HPV subtyping 2020 021 [facility] (Pathology), [address] [place], [address], 15:18:21 CMP, serum or plasma 2020 021 [facility], [address] [place] [address], [address], 16:52:46 Referral rheumatol ogist referral - ? 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 2020 021 [email or web address] [facility], [address] [facility] [address], [place], [address], 15:36:41 ENT surgery referral 2020 021 [email or web address] Not available 13:32:52 Procedures None recorded. Surgeries None recorded. Imaging None recorded. Medication Orders clindamyc in 1 % topical gel 2021 022 [id number], [address] [place], [address], 17:03:02 escitalop ashley 5 mg tablet 2021 022 [facility][id number], [address] [place], [address], 17:05:31 Patient TargetsNo targets recorded. Patient Instructions Encounter Date Encounter Id Patient Instructions Last Modified By Organization Details Last Modified Time 11/20/2020 [id number] Well Visit, Ages 18 to 65: Care Instructions [email or web address] Not available 11/20/2020 15:49:56 11/23/2021 [id number] Well Visit, Ages 18 to 65: Care Instructions [email or web address] Not available 11/23/2021 09:42:13 03/01/2022 [id number] Counseling done {{Patient not ready to quit Contemplati ng quitting Taperin g Cigarettes mary beth d up for support prescrip tion for stop smoking medication given}} {{Patient not ready to quit Contemplati ng quitting Taperin g Cigarettes mary beth d up for support prescrip tion for stop smoking medication given}} Goal for follow up visit {{adding exercise regular meals stress management impro ving sleep therapist identifying sponsor}} {{adding exercise regular meals stress management impro ving sleep therapist identifying sponsor}} {{adding exercise regular meals stress management impro ving sleep therapist identifying sponsor}} My Health To Do List {{go to [employer] or call s ign up for phil text 2 quit or other stop smoking phil contact [employer]}} {{go to [employer] or call s ign up for phil text 2 quit or other stop smoking phil contact [employer]}} {{go to [employer] or call s ign up for phil text 2 quit or other stop smoking phil contact [employer]}} [email or web address] Not available 03/01/2022 16:43:04 Reason for Referral ENT Surgery Referral for Dev iated nasal septum Deviated septum Referring Physician: Camila Heath, Family Medicine, Encounter Date: 11/20/2020 Sleep Medicine Referral for Sleep pattern disturbance chronic fatigue, can fall asleep anytime despite sleeping 12+ hours, question narcolepsy. 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 METAB OLIC PANEL glucose 93 mg/dL 70-100 Not Available [address], [address], 11/19/2020 16:52:46 11/19/19 21 11/19/2020 COMP. METAB OLIC PANEL BUN 8 mg/dL 7-18 Not Available [address], [address], 11/19/2020 16:52:46 11/19/19 21 11/19/2020 COMP. METAB OLIC PANEL creatinine 0.9 mg/dL 0.8-1. 3 Not Available [address], [address], 11/19/2020 16:52:46 11/19/19 21 11/19/2020 COMP. METAB OLIC PANEL B/C 8.9 ratio Not Available [address], [address], 11/19/2020 16:52:46 11/19/19 21 11/19/2020 COMP. METAB OLIC PANEL GFR -non 85.5 mL/mi n Recom kade d GFR by the Natio nal Kidne y Found ation >60 mL/mi n/1.7 3m2 - Nery l <60 mL/mi n/1.7 3m2 - Chron ic Kidne y Disea se <15 mL/mi n/1.7 3m2 - Kidne y Failu re Not Available [address], [address], 11/19/2020 16:52:46 11/19/19 21 11/19/2020 COMP. METAB OLIC PANEL GFR - if 98.3 mL/mi n For Afric an Ameri can patie nts: Resul ts Multi plied by 1.21 Not Available [address], [address], 11/19/2020 16:52:46 11/19/19 21 11/19/2020 COMP. METAB OLIC PANEL sodium 143 mmol/ L 136-14 5 Not Available [address], [address], 11/19/2020 16:52:46 11/19/19 21 11/19/2020 COMP. METAB OLIC PANEL potassium 4.5 mmol/ L 3.5-5. 1 Not Available [address], [address], 11/19/2020 16:52:46 11/19/19 21 11/19/2020 COMP. METAB OLIC PANEL chloride 106 mmol/ L 96-107 Not Available [address], [address], 11/19/2020 16:52:46 11/19/19 21 11/19/2020 COMP. METAB OLIC PANEL anion gap 10.3 5.0-15 .0 Not Available [address], [address], 11/19/2020 16:52:46 11/19/19 21 11/19/2020 COMP. METAB OLIC PANEL CO2 27 mmol/ L 21-32 Not Available [address], [address], 11/19/2020 16:52:46 11/19/19 21 11/19/2020 COMP. METAB OLIC PANEL calcium 8.9 mg/dL 8.5-10 .3 Not Available [address], [address], 11/19/2020 16:52:46 11/19/19 21 11/19/2020 COMP. METAB OLIC PANEL total protein 6.9 g/dL 6.4-8. 2 Not Available [address], [address], 11/19/2020 16:52:46 11/19/19 21 11/19/2020 COMP. METAB OLIC PANEL albumin 3.9 g/dL 3.4-5. 0 Not Available [address], [address], 11/19/2020 16:52:46 11/19/19 21 11/19/2020 COMP. METAB OLIC PANEL globulin 3.0 g/dL Not Available [address], [address], 11/19/2020 16:52:46 11/19/19 21 11/19/2020 COMP. METAB OLIC PANEL A/G 1.3 ratio 0.8-2. 0 Not Available [address], [address], 11/19/2020 16:52:46 11/19/19 21 11/19/2020 COMP. METAB OLIC PANEL total bilirubin 0.40 mg/dL 0.00-1 .00 Not Available [address], [address], 11/19/2020 16:52:46 11/19/19 21 11/19/2020 COMP. METAB OLIC PANEL AST 16 U/L 0-37 Not Available [address], [address], 11/19/2020 16:52:46 11/19/19 21 11/19/2020 COMP. METAB OLIC PANEL ALT 25 U/L 6-63 Not Available [address], [address], 11/19/2020 16:52:46 11/19/19 21 11/19/2020 COMP. METAB OLIC PANEL alk. phos. 68 U/L 50-136 Not Available [address], [address], 11/19/2020 16:52:46 11/21/19 21 11/21/2020 CBC (INCL UDES DIFF/ PLT) white blood cell count 7.9 thous and/u L 3.8-10 .8 normal Not Available [facility] [address], [address], 11/21/2020 03:51:40 11/21/19 21 11/21/2020 CBC (INCL UDES DIFF/ PLT) red blood cell count 4.34 anel on/uL 3.80-5 .10 normal Not Available [facility] [address], [address], 11/21/2020 03:51:40 11/21/19 21 11/21/2020 CBC (INCL UDES DIFF/ PLT) hemoglobin 13.4 g/dL 11.7-1 5.5 normal Not Available [facility] [address], [place], [address], 11/21/2020 03:51:40 11/21/19 21 11/21/2020 CBC (INCL UDES DIFF/ PLT) hematocrit 40.5 % 35.0-4 5.0 normal Not Available [facility] [address], [place], [address], 11/21/2020 03:51:40 11/21/1911/21/2020 CBC (INCL UDES DIFF/ PLT) MCV 93.3 fL 80.0-1 00.0 normal Not Available [facility] [address], [place], [address], 11/21/2020 03:51:40 11/21/19 21 11/21/2020 CBC (INCL UDES DIFF/ PLT) MCH 30.9 pg 27.0-3 3.0 normal Not Available [facility] [address], [place], [address], 11/21/2020 03:51:40 11/21/1911/21/2020 CBC (INCL UDES DIFF/ PLT) MCHC 33.1 g/dL 32.0-3 6.0 normal Not Available [facility] [address], [place], [address], 11/21/2020 03:51:40 11/21/19 21 11/21/2020 CBC (INCL UDES DIFF/ PLT) RDW 11.9 % 11.0-1 5.0 normal Not Available [facility] [address], [place], [address], 11/21/2020 03:51:40 11/21/19 21 11/21/2020 CBC (INCL UDES DIFF/ PLT) platelet count 411 thous and/u L 140-40 0 high Not Available [facility] [address], [place], [address], 11/21/2020 03:51:40 11/21/19 21 11/21/2020 CBC (INCL UDES DIFF/ PLT) MPV 9.6 fL 7.5-12 .5 normal Not Available [facility] [address], [place], [address], 11/21/2020 03:51:40 11/21/19 21 11/21/2020 CBC (INCL UDES DIFF/ PLT) absolute neutrophils 4029 cells /uL 1500-7 800 normal Not Available [facility] [address], [place], [address], 11/21/2020 03:51:40 11/21/19 21 11/21/2020 CBC (INCL UDES DIFF/ PLT) absolute lymphocytes 2907 cells /uL 850-39 00 normal Not Available [facility] [address], [place], [address], 11/21/2020 03:51:40 11/21/19 21 11/21/2020 CBC (INCL UDES DIFF/ PLT) absolute monocytes 521 cells /uL 200-95 0 normal Not Available [facility] [address], [place], [address], 11/21/2020 03:51:40 11/21/19 21 11/21/2020 CBC (INCL UDES DIFF/ PLT) absolute eosinophils 379 cells /uL 15-500 normal Not Available [facility] [address], [place], [address], 11/21/2020 03:51:40 11/21/19 21 11/21/2020 CBC (INCL UDES DIFF/ PLT) absolute basophils 63 cells /uL 0-200 normal Not Available [facility] [address], [place], [address], 11/21/2020 03:51:40 11/21/19 21 11/21/2020 CBC (INCL UDES DIFF/ PLT) neutrophils 51 % normal Not Available [facility] [address], [place], [address], 11/21/2020 03:51:40 11/21/19 21 11/21/2020 CBC (INCL UDES DIFF/ PLT) lymphocytes 36.8 % normal Not Available [facility] [address], [place], [address], 11/21/2020 03:51:40 11/21/19 21 11/21/2020 CBC (INCL UDES DIFF/ PLT) monocytes 6.6 % normal Not Available [facility] [address], [place], [address], 11/21/2020 03:51:40 11/21/19 21 11/21/2020 CBC (INCL UDES DIFF/ PLT) eosinophils 4.8 % normal Not Available [facility] [address], [place], [address], 11/21/2020 03:51:40 11/21/19 21 11/21/2020 CBC (INCL UDES DIFF/ PLT) basophils 0.8 % normal Not Available [facility] [address], [place], [address], 11/21/2020 03:51:40 11/21/19 21 11/23/2020 AD TIN ferritin 15 NG/mL 6-115 Not Available [address], [place], [address], 11/23/2020 15:11:05 11/21/19 21 11/23/2020 TSH TSH 1.61 uIU/m L 0.50-6 .00 [facility] and [facility] Thyro id Assoc iatio n recom mend goal TSH value s betwe en 0.4-4 .0 mIU/m L. Not Available [address], [address], 11/23/2020 15:36:58 11/21/19 21 11/23/2020 VITAM IN D 25-HY DROXY TOTAL vitamin D 25-hydroxy EIA 34.7 NG/mL 20.0-9 9.9 Thera py is based on measu remen t of total 25-OH D, with level s less than 20 ng/mL indic ative of Vitam in D defic iency . Level s betwe en 20ng/ mL and 30 ng/mL sugge st insuf ficie ncy. Optim al Level s are great er than 30 ng/mL . Not Available [address], [address], 11/23/2020 15:36:59 11/21/1911/24/2020 PAP SMEAR path report [facility] [address] [place] [address] Lab Direc tor: Alysia tran MD LEAD ADVISOR Cytol ogy Repor t Acces delfino #: [id number] FINAL DIAGN OSIS A. PAP SMEAR (SURE PATH) CE: SPECI MEN ADEQU ACY: Satis facto ry for evalu ation ; trans forma tion zone prese nt. INTER PRETA TION: NEGAT RUBI FOR INTRA EPITH ELIAL LESIO N OR FUENTES ORTIZ . Elect kyra beckett Mary Beth d Out By: Ankit Hugo , JESSICA( CP) The Pap test is a scree sridhar test prima rily for squam ous cance rs and precu rsors and has assoc iated false -nega tive and false -posi tive resul ts. New techn ologi es such as liqui d-bas ed prepa ratio ns may decre ase but will not elimi sacha all false -nega tive resul ts. Regul ar sampl ing and follo w-up of unexp shanon d clini twyla signs and sympt oms are recom kade d to minim ize false negat rubi resul ts. CLINI TWYLA HISTO RY Date of Last Menst rual Perio d: Not Provi ded Menst rual Histo ry: Unkno wn Other Clini twyla Condi tions : Scree sridhar Pap SPECI MEN SOURC E A: PAP SMEAR (SURE PATH) CE Patie nt Name: HELDER LIGHT : 1995 (Age: 25) Sex: F 6 Insti tutio n: [facility] Locat ion: [facility] Date of Colle ction : 021 Date of Acces delfino: 021 Repor lourdes: 2020 14:27 Resul ts to: Camila Carrasco an COREMAKER MACHINE Not Available [facility] (Outpatient) [address] [place] [address], [address], 11/24/2020 14:35:29 11/21/19 21 11/25/2020 VITAM IN B12 vitamin B12 326 pg/mL 230-10 50 Not Available [address], [address], 11/25/2020 14:23:59 12/01/19 21 12/09/2020 CHLAM YDIA/ GC, URINE SOLITARIO aoe-urine URINE Not Available [address], [address], 12/09/2020 16:11:32 12/01/19 21 12/09/2020 CHLAM YDIA/ GC, URINE SOLITARIO N. gonorrhoeae Neg negati ve Not Available [address], [address], 12/09/2020 16:11:32 12/01/19 21 12/09/2020 CHLAM YDIA/ GC, URINE SOLITARIO C. trachomatis Neg negati ve Not Available [address], [address], 12/09/2020 16:11:32 Result Notes None recorded. Problems Name Problem SNOMED Code Status Onset Date Resolution Date Notes Provider Name and Address Organization Details Recorded Time Depressive disorder 05503535 Completed 201806/23/[address] [place] [address], [address] , [facility] 1 12:33:48 Increased frequency of urination 782191505 Active 2018 SELENA Winchester [address] [place] [address], [address] , [facility] 9 10:22:20 Uses oral contracept ion 2173479 Active 2020 CHANTEL Robles [address] [place] [address], [address] , [facility] 1 12:33:42 Anxiety 06791984 Active 2020 CHANTEL Robles [address] [place] [address], , [facility] 1 12:33:46 Moderate recurrent major depression 33438699 Active 2020 CHANTEL Robles [address] [place] [address], [address] , [facility] 1 12:33:56 Height below average 927360793 Completed 01/24/2019 SELENA Winchester [address] [place] [address], , [facility] 9 10:19:57 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 Procedures Surgical History Date Name Laterality Status Provider Name and Address Organization Details Recorded Time prevention-giorgi mcgraw alcohol misuse screening completed Janice VillafanaMEHRDAD [facility] 11/20/2020 13:23:20 9 POC Urinalysis Testing completed Bertha ChaidezARCHIE omalley [facility] 01/24/2019 08:03:07 Imaging Results None recorded. Procedure Notes None recorded. Medical Equipment None Reported. Allergies Allergen ID Allergen Name Allergen Category Reaction Reaction Severity Criticality Documentation Date Start Date Code Code System Note Provider Name and Address Organization Details Recorded Time 21440525 cephalexi n medicatio n Not available Not available Not available 01/24/20192230 RxNorm [facility] 08:10:21 545172 Product containin g penicilli n (product) medicatio n Not available Not available Not available 01/24/2019 83467 8001 SNOMED Bertha [facility] 08:10:31 Medications Name Sig Start Date Stop Date Status Note LastModified by Organization Details LastModified Time bupropion HCl SR 150 mg tablet,12 hr sustained- release TAKE 1 TABLET BY MOUTH EVERY DAY IN THE MORNING 11/23 completed not taking Not Available Not Available Not Available doxycyclin e hyclate 100 mg capsule TAKE 1 CAPSULE (ORAL) 2 TIMES PER DAY FOR 10 DAYS FOR INFECTIO N 11/23 completed Not Available Not Available Not Available oxybutynin chloride ER 10 mg tablet,ext ended release 24 hr TAKE 1 TABLET BY MOUTH EVERY DAY 06/21 completed Not Available Not Available Not Available phenazopyr idine 200 mg tablet TAKE 1 TABLET BY MOUTH THREE TIMES A DAY FOR 2 DAYS 06/21 completed Not Available Not Available Not Available prochlorpe razine maleate 10 mg tablet 11/20 completed no longer taking 11/20/20 hw Not Available Not Available Not Available bupropion HCl SR 100 mg tablet,12 hr sustained- release 01/24 completed Not Available Not Available Not Available clindamyci n 1 % topical gel APPLY THIN COAT TO AFFECTED AREA TWICE A DAY active Not Available Not Available No t Available cephalexin 500 mg capsule 01/24 completed Not Available Not Available Not Available methylphen idate ER 18 mg tablet,ext ended release 24 hr TAKE 1 TABLET BY MOUTH EVERY DAY IN THE MORNING active Not Available Not Available No t Available escitalopr am 10 mg tablet TAKE 1 TABLET BY MOUTH EVERY DAY 06/23 completed Not Available Not Available Not Available escitalopr am 5 mg/5 mL oral solution TAKE UP TO 5 ML BY MOUTH DAILY DIRECTED FOR DOSE CHANGES active Not Available Not Available No t Available escitalopr am 5 mg tablet TAKE 1 TABLET BY MOUTH EVERY DAY DIRECTED active Not Available Not Available No t Available nitrofuran toin monohydrat e/macrocry stals 100 mg capsule TAKE 1 CAPSULE BY MOUTH EVERY 12 HOURS FOR 5 DAYS 06/21 completed Not Available Not Available Not Available Sronyx 0.1 mg-20 mcg tablet TAKE 1 TABLET BY MOUTH EVERY DAY NEEDS APPOINTM ENT 2022 active Not Available Not Available Not Avai lable Myrbetriq 50 mg tablet,ext ended release TAKE 1 TABLET BY MOUTH EVERY DAY 06/21 completed Not Available Not Available Not Available BinaxNOW COVID-19 Ag Self Test kit USE DIRECTED 11/23 completed Not Available Not Available Not Available Vitals Date Recorded Body height Body mass index (BMI) Body weight Provider Name and Address Organization Details Last Updated DateTime 06/23/2020 161.29 cm 20.9 kg/m2 39508.08 g Liat Killian [facility] 06/23/2020 12:09:05 Date Recorded Body height Body mass index (BMI) Body weight Heart rate Systolic blood pressure Diastolic blood pressure Provider Name and Address Organization Details Last Updated DateTime 1 161.29 cm 20.4 kg/m2 11070.3 1 g 82 /min 106 mm[Hg] 74 mm[Hg] Karis Cartagenamethodist [facility] 15:40:11 Date Recorded Body height Body mass index (BMI) Body weight Oxygen saturation Oxygen saturation in Arterial blood by Pulse oximetry Heart rate Heart rate Heart rate Oxygen saturation Oxygen saturation in Arterial blood by Pulse oximetry Oxygen saturation Oxygen saturation in Arterial blood by Pulse oximetry Systolic blood pressure Diastolic blood pressure Systolic blood pressure Diastolic blood pressure Systolic blood pressure Diastolic blood pressure Provider Name and Address Organization Details Last Updated DateTime 1 161.29 cm 20.6 kg/m2 27296.9 g 98 % 98 % 72 /min 76 /min 93 /min 100 % 100 % 100 % 100 % 96 mm[Hg] 70 mm[Hg] 112 mm[Hg] 64 mm[Hg] 94 mm[Hg] 60 mm[Hg] Aneudy CHAVA Workman [facility] 1 12:29:12 Date Recorded Body height Body mass index (BMI) Body weight Oxygen saturation Oxygen saturation in Arterial blood by Pulse oximetry Heart rate Systolic blood pressure Diastolic blood pressure Provider Name and Address Organization Details Last Updated DateTime 2 162.56 cm 19.6 kg/m2 08333.6 3 g 99 % 99 % 69 /min 102 mm[Hg] 67 mm[Hg] Wade Krueger MA [facility] 2 09:14:17 Date Recorded Body height Body mass index (BMI) Body weight Heart rate Oxygen saturation Oxygen saturation in Arterial blood by Pulse oximetry Systolic blood pressure Diastolic blood pressure Provider Name and Address Organization Details Last Updated DateTime 2 162.56 cm 19.1 kg/m2 41274.7 5 g 85 /min 100 % 100 % 114 mm[Hg] 65 mm[Hg] KEVIN Duncan [facility] 2 16:44:47 Social History Question Answer Notes LastModified by Organizat ion Details LastModified Time Tobacco Smoking Status Current Some Day Smoker 06/23/20 jlk; 1/2 cig per week, sometimes mixed with marijuana 11/23/21 AJAY Krueger [facility] 11/23/2021 09:10:58 Do You Wear A Helmet When Biking? Yes Information not available 01/24/2019 What Is Your Level Of Caffeine Consumption? None Information not available 01/24/2019 What Type Of Diet Are You Following? REGULAR Information not available 01/24/2019 Which Illicit Or Recreational Drugs Have You Used? Smokes Marijuana Daily 06/23/20 Jlk, Sometimes Mixed With Tobacco 11/23/21 AJAY [email or web address] Information not available 11/23/2021 Education 12 Information no t available 01/24/2019 What Is The Highest Grade Or Level Of School You Have Completed Or The Highest Degree You Have Received? [id number] Information not available 11/20/2020 How Many Days Of Moderate To Strenuous Exercise, Like A Brisk Walk, Did You Do In The Last 7 Days? 3 Information not available 11/20/2020 Have There Been Any Changes To Your Family Or Social Situation? No Information not available 11/20/2020 Are There Any Guns Present In Your Home? No Information not available 01/24/2019 Do You Use Insect Repellent Routinely? Yes Information not available 11/20/2020 Live Alone Or With Others? With Others With Parents Information not available 01/24/2019 Patient Has Health Care Proxy Signed And In Chart Yes [email or web address] Information not available 12/02/2020 Marital Status Single Informatio n not available 01/24/2019 Mosquito Repellent Used Routinely Yes Information not available 01/24/2019 What Was The Date Of Your Most Recent Tobacco Screening? 06/23/2020 06/23/20 Naresh Information not available 06/23/2020 How Many Children Do You Have? 0 Information not available 01/24/2019 Do You Use Protection During Sex? Usually Information not available 11/20/2020 What Is Your Relationship Status? Single Information not available 11/20/2020 Do You Use Your Seat Belt Or Car Seat Routinely? Yes Information not available 11/20/2020 Seat Belts Used Routinely Yes Information not available 01/24/2019 Are You Sexually Active? Yes Information not available 11/20/2020 Smoke Alarm In Home Yes Information not available 01/24/2019 Do You Have Smoke And Carbon Monoxide Detectors In Your Home? Yes Information not available 11/20/2020 Are You Passively Exposed To Smoke? No Information not available 11/20/2020 How Much Tobacco Do You Smoke? No 06/23/20 Millerk Information not available 06/23/2020 General Stress Level Medium Information not available 01/24/2019 Do You Use Sunscreen Routinely? Yes Information not available 01/24/2019 Sex: Unknown Functional Status Question Answer Note LastModified by Organizat ion Details LastModified Time Do you use any illicit or recreational drugs? Yes marijuana 11/20/20 hw Information not available 11/20/2020 Do you or have you ever used any other forms of tobacco or nicotine? No 11/23/21 JM [email or web address] Information not available 11/23/2021 What is your level of alcohol consumption? Occasional three times a month 11/20/20 hw Information not available 11/20/2020 Do you or have you ever used smokeless tobacco? Never used smokeless tobacco 06/23/20 jlk Information not available 06/23/2020 Are you currently employed? 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
== END 2024-08-29 13:18 | disposition home or self-care (01) ==
LOC: HO.HWS 10:51
PROVIDERS: PCP Nurse Practitioner Family; Visit Provider Advanced Practice Midwife
DX: Z01.419 Encounter for gynecological examination (general) (routine) without abnormal findings (principal)
CPT/HCPCS: 99395; 99459

== ENCOUNTER → 2024-10-09 12:56 | Outpatient (REF) | payer OTHER, SELFPAY ==
--- NOTE | 2024-10-09 12:58 | CA_ITS ---
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 The calculated ejection fraction is 60% by biplane method. - No obvious valvular pathology seen on this study. Findings Left Ventricle Normal left ventricular cavity size. There is normal left ventricular wall thickness. The left ventricular systolic function is normal. The calculated ejection fraction is 60% by biplane method. There is no evidence of regional wall motion abnormalities. Diastolic function is normal for age. Right Ventricle Normal right ventricular cavity size and systolic function. Atria Both atria are normal in size. Aortic Valve There is a normal trileaflet aortic valve. There is no aortic valve stenosis. There is no aortic valve regurgitation. Mitral Valve The mitral valve appears normal. There is no mitral valve regurgitation. There is no mitral valve stenosis. Pulmonic Valve The pulmonic valve is likely normal. Tricuspid Valve There is trace tricuspid valve regurgitation. There is no evidence of pulmonary hypertension. Great Vessels The asc aorta is normal in size. Venous The inferior vena cava is normal in size and collapses greater than 50% with inspiration. Pericardium/Pleural There is no evidence of pericardial effusion. Prior Study Comparison No prior study available for comparison. Recommendations, Care & Conclusions No obvious valvular pathology seen on this study. Measurements 2D Linear Measurements IVSd: 0.62 0.6-0.9/0.6-1.0 cm LVIDd: 4.59 3.9-5.3/4.2-5.9 cm LVIDd Index: 2.96 2.4-3.2/2.2-3.1 cm/m2 LVIDs: 2.96 2.0-3.6 cm LVPWd: 0.66 0.7-1.1 cm LA Diam: 2.60 2.7-3.8/3.0-4.0 cm LAIDs Index: 1.68 1.5-2.3 cm/m2 LV Mass: 109.67 67-162/88-224 g LV Mass Index: 70.76 43-95/49-115 g/m2 LVOT Diam: 2.10 3.0+(-)1.3 cm 2D Systolic Function EF 4C: 55.00 >55% EF 2C: 63.30 >55% EF BiP: 60.00 >55% Mitral Valve MV Pk E: 0.84 MV PK A: 0.35 MV Decel Time: 216.00 E/A: 2.40 E'Lateral: 14.60 E'Medial: 10.40 E/E' Med: 8.10 E/E' Lat: 5.80 PHT: 63.00 MVA PHT: 3.49 Decel [place]: 3.89 Aortic Valve AoV Pk Juan: 1.31 AoV Mn Juan: 0.89 AoV VTI: 0.25 AoV Pk Grad: 7.00 Aov Mn Grad: 4.00 SAPPHIRE Cont.VTI: 2.64 LVOT LVOT Pk Juan: 0.99 LVOT Mn Juan: 0.63 LVOT VTI: 0.19 LVOT Pk Grad: 4.00 LVOT Mn Grad: 2.00 LVOT Diam: 2.10 LVOT Area: 3.46 Diastolic Function MV Pk E: 0.84 MV Pk A: 0.35 E/A: 2.40 E'Medial: 10.40 E/E' Med: 8.10 E' Laterial: 14.60 E/E' Lat: 5.80 Right Ventricle TAPSE (mm): 24.60 TVS' Juan: 12.60 Tricuspid Valve TR Pk Juan: 2.14 TR Pk Grad: 18.00 RA Press: 3.00 RVSP: 21.00 Great Vessels Aorta Sinus of Valsalva: 2.46 2.0-3.5 cm Ao Asc: 2.10 2.1-3.4 cm Ao Arch: 1.80 Updated in Other Vendor System with Status of Final Marv Alanis MD electronically signed on 10/10/2024 10:35:31 AM with status of Final
--- OUTSIDE RECORDS SUMMARY | 2024-10-09 15:05 | XMS_ITS | Encounter Summary ---
Author Organization [facility] Address [address] [place] [address] Phone Care Team Providers Care Brick Tester Name Role Phone Arely Murrell MD Primary Care Provider [phone] Encounter Details Date Type Department Care Team (Late st Contact Info) Description 03/08/2010 Nurse Only [facility], [address] [address] Social History Tobacco Use Types Packs/Day Years [...] 2010 03:20 pm Provider: Magaly Christensen LPN (Thermograph Operator: Aj Tan MD; Secondary School Teacher Librarian: Magaly Christensen LPN) Location: [facility]. ECTIVE: CC: She is here for [...] CAPTURE: Primary Diagnosis: V081 Flu Clinic Orders: [id number] Influenza virus vaccine, split virus, preservative free, > 3 years, for intramuscular use 15783 Immunization administration (includes percutaneous, intradermal, subcutaneous or intramuscular injec documented in this encounter Plan of Treatment Not on file documented as of this encounter Visit Diagnoses Not on filedocumented in this encounter Care Teams Brick Tester Relationship Specialty Start Date End Date Arely Murrell MD [address] [place] [address] [address] [place] [address] PCP - General Pediatrics 03/21/17 02/06/19 documented as of this encounter
== END ==
LOC: HO.CARD 12:56
PROVIDERS: PCP Nurse Practitioner Family; Visit Provider Nurse Practitioner Family
DX: Q79.60 Ehlers-Danlos syndrome, unspecified (principal)
CPT/HCPCS: 93306

== ENCOUNTER → 2024-10-09 12:58 | Outpatient (BNV) | payer OTHER, SELFPAY | PROVIDERS: PCP Nurse Practitioner Family; Visit Provider Internal Medicine | DX: Q79.60 Ehlers-Danlos syndrome, unspecified (principal) | CPT/HCPCS: 93306 ==

== ENCOUNTER 2025-02-13 09:17 | Outpatient (AMB) | payer OTHER, SELFPAY ==
--- NOTE | 2025-02-13 09:18 | A.OFFVIS_ITS ---
Intake Visit Reasons: tv control consult Allergies cephalexin Adverse Reaction (Verified 02/13/25 10:18) Anaphylaxis Penicillins Adverse Reaction (Verified 02/13/25 10:18) Anaphylaxis Medication List - Last Reconciled 02/13/25 by Madelyn Loja LPN escitalopram oxalate 10 mg PO DAILY methylphenidate HCl ER (Concerta) 18 mg PO DAILY HPI HPI tv control consult: Details: This was a very detailed tele visit by phone discussing patient is very recent discovery that she has the BRCA positive gene. She was being tested at the 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 She said she has already been screened at cardiology for cardiac an abnormalities and was cleared there however because of the BRCA positive she was told that she should get off combination control with estrogen. She has plans to have children in her lifetime though had not reached a particular decision point of timing yet so this is all very new in very life important information she is going to be awaiting a referral to Oncology for discussion of other options and recommendations for screening for ovarian cancers and for potential prophylactic measures that might be recommended and we discussed during this visit other questions to think about in terms of preservation of fertility and what her options would be. She may need to seek other expert opinions and recommendations based on current best practices that this provider is not in position of. I did teaching about options for nonhormonal control including the ParaGard IUD and condoms. Additionally discussed whether not she was aware of any other connective tissue disorder that would affect any of her other organs she said that she was assured that she has simply the connective tissue kind that effects her joints as far she knows. This was discussed in case there was any potential for any kind of issue with placement of an IUD in the uterus. For now she would like to start on the progestin only OCPs discussed that nothing is risk free. She stopped the control pills on Monday when she got the diagnosis of BRCA positive. She is on her period now and it coincides with end of a pill pack and when she would have had her period anyway. Discussed potential risks but for now she has opted to accept a prescription for progestin only OCPs and we will see her in 6 months and by then she will have learned more information discussed that there is no good definitive testing for ovarian cancer and it maybe a matter of figuring out best options going forward in having full and clear discussions of best care involving future health, screening and future fertility as well, prescription sent to her pharmacy and we will see her in 3 months. [facility] Medical History (Updated 02/13/25 @ 12:44 by Marjorie Morillo CNM) BRCA gene positive Arthritis ADHD Depression Migraines Surgical History No pertinent past surgical history Family History Maternal Aunt Mental health disorder Breast cancer Mother Mental health disorder Paternal Aunt Breast cancer Social History Housing: House Alcohol intake: current Alcohol intake frequency: holidays/special occasions only Patient Tobacco Use Status: Never used Tobacco e-Cigarette/Vaping Use: Currently Using Substance Use Type: Marijuana service: No Current occupational status: employed Cognitive needs: No Hearing needs: No Vision needs: Yes Female Reproductive History Menstrual Age of Menarche: 17 Telehealth Telehealth Telehealth Platform: Telephone Location of provider rendering services: practice address Location of patient: address on file Patient Identification confirmed using: Name, : Yes Telehealth method: voice only Patient verbally consented to treatment: Yes Patient verbally consented to billing insurance company: Yes Patient informed of any privacy concerns related to visit: Yes Minutes spent on Phone/Video with Pt.: 24 (5 cr/24 speaking with patient about her complicated issues/15 charting) Assessment & Plan Assessment & Plan (1) Family planning counseling: Code(s): Z30.09 - Encounter for other general counseling and advice on contraception Category: Medical (2) Surveillance for control, oral contraceptives: Code(s): Z30.41 - Encounter for surveillance of contraceptive pills Category: Medical (3) EDS (Berlin-Danlos syndrome): Code(s): 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 She said she has already been screened at cardiology for cardiac an abnormalities and was cleared there however because of the BRCA positive she was told that she should get off combination control with estrogen. She has plans to have children in her lifetime though had not reached a particular decision point of timing yet so this is all very new in very life important information she is going to be awaiting a referral to Oncology for discussion of other options and recommendations for screening for ovarian cancers and for potential prophylactic measures that might be recommended and we discussed during this visit other questions to think about in terms of preservation of fertility and what her op tions would be. She may need to seek other expert opinions and recommendations based on current best practices that this provider is not in position of. I did teaching about options for nonhormonal control including the ParaGard IUD and condoms. Additionally discussed whether not she was aware of any other connective tissue disorder that would affect any of her other organs she said that she was assured that she has simply the connective tissue kind that effects her joints as far she knows. This was discussed in case there was any potential for any kind of issue with placement of an IUD in the uterus. For now she would like to start on the progestin only OCPs discussed that nothing is risk free. She stopped the control pills on Monday when she got the diagnosis of BRCA positive. She is on her period now and it coincides with end of a pill pack and when she would have had her period anyway. Discussed potential risks but for now she has opted to accept a prescription for progestin only OCPs and we will see her in 6 months and by then she will have learned more information discussed that there is no good definitive testing for ovarian cancer and it maybe a matter of figuring out best options going forward in having full and clear discussions of best care involving future health, screening and future fertility as well, prescription sent to her pharmacy and we will see her in 3 months. Medications: New norethindrone (contraceptive) 0.35 mg PO DAILY 84 tabs 4RF Coding Level of Care Code Tele Est Pt Level 3 (26674) Diagnoses Family planning counseling Z30.09 Surveillance for control, oral contraceptives Z30.41 EDS (Berlin-Danlos syndrome) Q79.60 BRCA gene positive Z15.01; Z15.09 control counseling Z30.09 Time Spent (min) 44
--- NOTE | 2025-02-13 09:41 | MHC.OFFVIS ---
Intake Visit Reasons: tv control consult Intake Note: Patient tested positive for BRACA Gene and wants to discuss what are her options for control Information Interpreted: non-clinical & clinical Allergies cephalexin Adverse Reaction (Verified 02/13/25 10:18) Anaphylaxis Penicillins Adverse Reaction (Verified 02/13/25 10:18) Anaphylaxis Medication List - Last Reconciled 02/13/25 by Madelyn Loja LPN escitalopram oxalate 10 mg PO DAILY methylphenidate HCl ER (Concerta) 18 mg PO DAILY PFS Medical History (Updated 02/13/25 @ 12:44 by Marjorie Morillo CNM) BRCA gene positive Arthritis ADHD Depression Migraines Surgical History No pertinent past surgical history Family History Maternal Aunt Mental health disorder Breast cancer Mother Mental health disorder Paternal Aunt Breast cancer Social History Housing: House Alcohol intake: current Alcohol intake frequency: holidays/special occasions only Patient Tobacco Use Status: Never used Tobacco e-Cigarette/Vaping Use: Currently Using Substance Use Type: Marijuana service: No Current occupational status: employed Cognitive needs: No Hearing needs: No Vision needs: Yes Female Reproductive History Menstrual Age of Menarche: 17 Date of last pap smear: 07/08/23 History of abnormal pap smear: No Assessment & Plan Assessment & Plan Medications: New norethindrone (contraceptive) 0.35 mg PO DAILY 84 tabs 4RF Coding
--- OUTSIDE RECORDS SUMMARY | 2025-02-13 10:30 | XMS_ITS | Clinical Summary ---
Author Organization [facility] Address [address] [place] [phone] Phone Care Team Providers Care Loader Operator Name Role Phone Unavailable Primary Care Provider [...] 84 02/20/2018 2:52 PM EST Temperature 37.3 C (99.2 F) 02/20/2018 2:52 PM EST Respiratory Rate 20 02/20/2018 2:52 PM EST Oxygen Saturation 99% 02/20/2018 2:52 PM EST Inhaled Oxygen Concentration - - Weight 50.8 kg (112 lb) 02/20/2018 2:52 PM EST Height 162.6 cm (5' 4 ) 11/15/2017 9:35 AM EDT Body Mass Index 19.22 11/15/2017 9:35 AM EDT Plan of Treatment Health Maintenance Due Date Last Done Comments Influenza Vaccines (#1) 2024 03/01/20 17, 04/07/2016, 02/24/2015, Additional history exists COVID-19 Vaccine (2024- season) 2024 DTaP,Tdap,and Td Vaccines (8 - Td or [...] complete this topic Procedures * Due to [place] SnapYeti law, this organization might not be sharing sensitive test results. Procedure Name Priority Date/Time Associated Diagnosis Comments CHLAMYDIA TRACHOMATIS, AMPLIFIED Routine 11/15/2017 10:32 AM EDT Encounter for screening examination for sexually transmitted disease from Last 3 Months or Most Recently Relevant to Health Maintenance Results * Due to [place] SnapYeti law, this organization might not be sharing sensitive test results. * Chlamydia trachomatis, Amplified (11/15/2017 10:32 AM EDT) Chlamydia Trachomatis, DNA Probe NEGATIVE (NEG) [facility] Comment: No Chlamydia Trachomatis RNA detected in this patient's sample (REFERENCE RANGE/NORMAL VALUE: NOT DETECTED) Note: This test uses tile sprayer- mediated amplification method to detect rRNA from C. Trachomatis Testing performed or reported by [facility], a Service of [facility], [facility] [address]la [address], [place] [address] CLIA [id number] Sruthi Engel MD, PhD, Union Contract Representative Urine (Urine) 11/15/2017 10: 32 AM EDT 11/15/2017 6:17 PM EDT us Arely Murrell MD LAB MICROBIOLOGY - GENERAL ORDER BERTHA Final Result [facility] from Last 3 Months or Most Recently Relevant to Health Maintenance
--- OUTSIDE RECORDS SUMMARY | 2025-02-13 10:30 | XMS_ITS | Encounter Summary ---
Author Organization [facility] Address [address] [place] [address] Phone Care Team Providers Care Drivability Technician Name Role Phone Arely Murrell MD Primary Care Provider [phone] Encounter Details Date Type Department Care Team (Late st Contact Info) Description 03/08/2010 Nurse Only [facility], [address] [address] Social History Tobacco Use Types Packs/Day Years [...] 2010 03:20 pm Provider: Magaly Christensen LPN (Small Engine Mechanic: Aj Tan MD; Parts Facilitator: Magaly Christensen LPN) Location: [facility]. ECTIVE: CC: She is here for [...] CAPTURE: Primary Diagnosis: V081 Flu Clinic Orders: [id number] Influenza virus vaccine, split virus, preservative free, > 3 years, for intramuscular use 17645 Immunization administration (includes percutaneous, intradermal, subcutaneous or intramuscular injec documented in this encounter Plan of Treatment Not on file documented as of this encounter Visit Diagnoses Not on filedocumented in this encounter Care Teams Drivability Technician Relationship Specialty Start Date End Date Arely Murrell MD [address] [place] [address] [address] [place] [address] PCP - General Pediatrics 03/21/17 02/06/19 documented as of this encounter
--- OUTSIDE RECORDS SUMMARY | 2025-02-13 10:30 | XMS_ITS | Clinical Summary ---
Author Organization [facility] Address [address] [id number] Phone Care Team Providers Care Station Captain Name Role Phone Arely Murrell MD Primary Care Provider [phone] Allergies Active Allergy Reactions Criticality Noted Date Comments Cephalexin 11/25/2018 Medications escitalopram oxalate (LEXAPRO) 20 MG tablet 1 tab(s) Active levonorgestrel-e thinyl estradiol (LUTERA, 28,) 0.1-0.02 mg per tablet 1 tablet Active BUPROPION HCL (WELLBUTRIN ORAL) Take by mouth. Active Active Problems Problem Noted Date Diagnosed Date Closed fracture of metatarsal bone 06/06/2017 Family History Medical History Relation Comments Diabetes mellitus Father 2 Stroke Father 2 Relation Status Comments Father 1 Alive Father 2 Social History Tobacco Use Types Packs/Day Years Used Date Smoking Tobacco: Never Smokeless Tobacco: Never Alcohol Use Standard Drinks/Week Comments Yes 0 (1 standard drink = 0.6 oz pur e alcohol) rare;y Education Answer Date Recorded Are you interested in more education? Not on layne e 08/12/2022 Are you concerned about learning? Not on file 08/12/2022 No 08/12/2022 No 08/12/2022 Digital Access Answer Date Recorded No 09/12/2022 No 09/12/2022 Reliable internet access at home? Not on file 09/12/2022 Device with a working camera? Not on file Comments Unknown Sex and Gender Information Value Date Recorded Sex Assigned at Female 02/17/2018 8:44 PM EDT Legal Sex Female 4:47 PM EDT Gender Identity Female 02/17/2018 8:44 PM EDT Sexual Orientation Not on file Last Filed Vital Signs Vital Sign Reading Time Taken Comments Blood Pressure 107/80 11/25/2018 2:27 PM EDT Pulse 69 11/25/2018 2:27 PM EDT Temperature 36.4 C (97.5 F) 11/25/2018 2:27 PM EDT Respiratory Rate 18 11/25/2018 2:27 PM EDT Oxygen Saturation 98% 11/25/2018 2:27 PM EDT Inhaled Oxygen Concentration - - Weight 52.2 kg (115 lb) 11/25/2018 11:21 AM EDT Height 162.6 cm (5' 4 ) 11/25/2018 11:21 AM EDT Body Mass Index 19.74 11/25/2018 11:21 AM EDT Plan of Treatment Health Maintenance Due Date Last Done Comments DEPRESSION SCREENING 2007 HEPATITIS C SCREENING 10/12/2013 HIV ONE-TIME SCREENING (18-65 YEARS) 10/12/2013 SMOKING STATUS SCREENING (Once After 26 Yrs) 10/12/2021 PAP SMEAR 11/21/2023 11/20/2020 INFLUENZA VACCINE (#1) 2024 , 02/07/2020, 01/24/2019, Additional history exists COVID-19 VACCINE ( season) 2024 07/30/2020, 07/08/2020 Adult Td,Tdap Booster 11/16/2027 11/15/2017 MENINGOCOCCAL VACCINES (B) Completed 07/05/2017, HEPATITIS A VACCINES Aged Out 11/15/2017 No long er eligible based on patient's age to complete this topic HIB VACCINES Aged Out No longer eligi ble based on patient's age to complete this topic MENINGOCOCCAL VACCINES (ACWY) Aged Out No longer eligible based on patient's age to complete this topic PNEUMOCOCCAL VACCINES (0-49 years) Aged Out No longer eligible based on patient's age to complete this topic Medical Devices Not on file Procedures Procedure Name Priority Date/Time Associated Diagnosis Comments PAP TEST Routine 11/20/2020 12:00 AM EDT from Last 3 Months or Most Recently Relevant to Health Maintenance Results * Pap Smear (11/20/2020 12:00 AM EDT) 11/20/2020 11/23/2020 9:1 1 AM EDT Narrative SEE NARRATIVE - 11/24/2020 2:27 PM EDT [address] [address] Supervisor Modern Languages: Alysia Card MD TILE ERECTOR Cytology Report FINAL DIAGNOSIS A. PAP SMEAR (SUREPATH) CE: SPECIMEN ADEQUACY: Satisfactory for evaluation; transformation zone present. INTERPRETATION: NEGATIVE FOR INTRAEPITHELIAL LESION OR MALIGNANCY. Electronically Signed Out By: JESSICA Whitaker(ASCP) The Pap test is a screening test primarily for squamous cancers and precursors and has associated false-negative and false-positive results. New technologies such as liquid-based preparations may decrease but will not eliminate all false-negative results. Regular sampling and follow-up of unexplained clinical signs and symptoms are recommended to minimize false negative results. CLINICAL HISTORY Date of Last Menstrual Period: Not Provided Menstrual History: Unknown Other Clinical Conditions: Screening Pap SPECIMEN SOURCE A: PAP SMEAR (SUREPATH) CE Patient Name: JOSSELINE HOLLIS : 1995 (Age: 25) Sex: F Institution: [facility] Location: [facility] Date of Collection: 11/20/2020 Date of Reported: 11/24/2020 14:27 Results to: Camila Heath NP Camila Wilcox NP CYTOLOGY ORDERABLES Final R esult SEE NARRATIVE from Last 3 Months or Most Recently Relevant to Health [place] [address] [employer] [facility] [employer] TOTAL CHOICE INDEMNITY [employer] TOTAL CHOICE INDEMNITY [employer] TOTAL CHOICE INDEMNITY [employer] TOTAL CHOICE INDEMNITY [employer] TOTAL CHOICE INDEMNITY [employer] [facility] TOTAL CHOICE INDEMNITY [employer] TOTAL CHOICE INDEMNITY [facility] TOTAL CHOICE INDEMNITY Care Teams Station Captain Relationship Specialty Start Date End Date Arely Murrell MD [address] [place] [address] [address] [place] [address] PCP - General 04/20/17 Additional Source Comments The information contained in this document represents components of the legal health record. It is not the complete legal health record.[facility]
--- OUTSIDE RECORDS SUMMARY | 2025-02-13 10:30 | XMS_ITS | Encounter Summary ---
Author Organization [facility] Address [address] [place] [address] Phone Care Team Providers Care Docking Pilot Name Role Phone Arely Murrell MD Primary Care Provider [phone] Reason for Visit * Reason Comments Med Refill Encounter Details Date Type Department Care Team (Late st Contact Info) Description 03/21/2018 Refill [facility] [address] [facility] 2 [place] [address] Arely Murrell MD [address] [place] [address] 2 [place] [address] Oral contraceptive pill surveillance Social History Tobacco [...] surveillance documented in this encounter Care Teams Docking Pilot Relationship Specialty Start Date End Date Arely Murrell MD [address] [place] [address] 2 [place] [address] PCP - General Pediatrics 03/21/17 02/06/19 documented as of this encounter
--- OUTSIDE RECORDS SUMMARY | 2025-02-13 10:31 | XMS_ITS | Data Portability ---
Author Organization [facility] [address] Address [address] [place] [address] Care Team Providers Care Grass Farm Laborer Name Role Phone LUIS LOPEZ Primary Care Provider [phone] Assessment Encounter Date Assessment Date Assessment LastModified by Organization Details LastModified Time 08/18/2023 08/18/2023 A bruise will get better on its own. But to feel better and help your bruise heal, you can: Put a cold gel pack, bag of [...] up to 2 days after their injury. Raise the area, if possible Raising the area above the level of your heart helps to reduce swelling. Take medicine to reduce the pain and swelling To treat pain, you can take acetaminophen (sample brand name: Tylenol). To treat pain and swelling, you can take ibuprofen (sample brand names: Advil, Motrin). But people who have certain conditions or take certain medicines should not take ibuprofen. If you are unsure, ask your doctor or nurse if you can take ibuprofen. Use an elastic bandage Using an elastic compression bandage to keep [...] Orders prednisone 10 mg tablet 2023 024 [id number], [address] [place], [address], 10:07:31 hydroxyzine HCl 25 mg tablet 2023 024 [id number], [address] [place], [address], 10:07:30 Patient TargetsNo targets recorded. Patient Instructions Encounter Date Encounter Id Patient Instructions Last Modified By Organization Details Last Modified Time 08/18/2023 [id number] bruises: care instructions aniceto Not available 08/18/2023 16:24:56 09/04/2023 [id number] Poison Michael Rash Follow these important instructions: - Avoid further irritation of the skin [...] - Learn to recognize poison oak, poison michael, and ragweed, and avoid contact with them. - Use hypoallergenic cosmetics. - Pat your skin dry instead of rubbing it. - Try to avoid using solvents and chemicals, and wear heavy gloves when you must use them. - Use a short order cook, or wear rubber gloves when you wash dishes. Call office, return to UC or PCP, or go to ER if: - Persistence and worsening of symptoms even after withdrawal of irritating materials calls for medical attention. - Develop new symptoms such as fevers, chills, body aches, or feelings of illness kanika Not available 09/04/2023 10:08:12 Reason for Referral None Reported. 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 Medical Equipment None Reported. Allergies Allergen ID Allergen Name Allergen Category Reaction Reaction Severity Criticality Documentation Date Start Date Code Code System Note Provider Name and Address Organization Details Recorded Time 641765 cephalexi n medicatio n Not available Not available Not available 08/18/2023 2231 RxNorm Fiona Wooldridge null, [place] - [facility] 4 16:07:06 442280 Product containin g penicilli n (product) medicatio n Not available Not available Not available 08/18/2023 10837 8001 SNOMED Fiona Wooldridge null, [place] - [facility] 16:07:14 Medications Name Sig Start Date Stop [...] blood by Pulse oximetry Heart rate Systolic And Diastolic Provider Name and Address Organization Details Last Updated DateTime 4 162.56 cm 19.9 kg/m2 97049.7 1 g 97.3 [degF] 16 /min 100 % 100 % 76 /min 112/80 mm[Hg] Fiona Lakisha PA - [facility] 16:12:28 Date Recorded Body height Body mass index (BMI) Body weight Oxygen saturation Oxygen saturation in Arterial blood by Pulse oximetry Pain severity - 0-10 verbal numeric rating [Score] - Reported Heart rate Respiratory rate Body temperature Systolic And Diastolic Provider Name and Address Organization Details Last Updated DateTime 4 162.56 cm 19.9 kg/m2 75694.7 1 g 99 % 99 % 0 86 /min 18 /min 98.6 [degF] 116/80 mm[Hg] Nicolasa Eugene PA - [facility] 09:58:36 Social History None recorded. Functional Status [...] Diagnosis SNOMED-CT Code Diagnosis ICD10 Code Diagnosis IMO Codes Diagnosis Note [id number] [address] [place] [address] 01/04/2021 15:03:08 01/04/2021 16:58:20 [id number] [address] [place] [address] 11/25/2018 10:40:44 11/25/2018 10:55:29 [id number] [address] [place] [address] 12/04/2020 15:09:57 12/04/2020 16:33:32 [id number] [address] [place] [address] 06/02/2017 17:12:23 06/02/2017 18:30:13 [id number] [address] [place] [address] 12/24/2020 12:34:44 12/24/2020 14:50:51 [id number] DONNY SMITH NP [address] [place] [address] 08/18/2023 15:49:38 08/18/2023 16:27:50 Superficial contusion of skin of thigh 214750062 S70.12XA [id number] Vijay Swain NP [address] [place] [address] 09/04/2023 09:51:02 09/04/2023 10:08:54 Contact dermatitis caused by urushiol from [facility] michael [id number] L25.5 Based on your presentati on and [...] Member ID Guarantor Name 09/04/2023 1 [facility] (MEDICAID REPLACEMENT - HMO) ALDO Hollis [id number] Rhianna Hollis 08/18/2023 1 [facility] (O) [id number] Ignacio Hollis [id number] Rhianna Hollis Notes Date Note Type Note Provider Name and Address Organization Details Recorded Time 08/18/19 24 text/htm l Skin Redness UCReported by PatientSkin Redness UCFor quality, patient reportserythematous. For severity, patient reportsworsening. For location, patient reportsleft legs(left lateral thighbruiseunknown originthinks is a spider biteno paindiscoloration). For duration, patient reports__ __. For onset, patient reportsgradual onset. For symptoms, patient reportsno fever,no nausea, andno vomiting. DONNY SMITH NP [address] [place], [address], [place] - [facility] 08/18/2023 16:29:46 09/04/19 24 text/htm l UC Rash/Skin LesionReported by PatientHPIFor quality, patient reportsitchy,red, andspreading. For context, patient reportsrecent outdoor activitybut reportsno new detergent or skin product,no recent change in medication,no exposure to hair dye,no expsoure to new clothes/jewelry,no recent travel,no recent illness,no pets/animals in home, andnot affiliated with chemicals/pesticides. For source of patient information, patient reportsinformation obtained from patientandpatient arrived at urgent care ambulatory. For location, patient reportsarms,legs, andthighs. For severity, patient reportsmoderate. For duration, patient reports2 weeks. For alleviating factors, patient reportsnothing gives relief. For associated symptoms, patient reportsno feverandno fatigue. For treatment history, patient reportsotc treatment ___ with no improvementandprescription topical treatment ___ with no improvement.did outside yard work . also have history of poison Michael dermatitis previously Vijay Swain NP [address] [place], [address], [place] - [facility] 09/04/2023 10:08:32 OBGyn Episode No OBEpisode recorded.
--- OUTSIDE RECORDS SUMMARY | 2025-02-13 10:31 | XMS_ITS | Encounter Summary ---
Author Organization [facility] Address [address] [place] [address] Phone Care Team Providers Care Dairy Technician Name Role Phone Unavailable Primary Care Provider Unavailabl e Reason for Visit * Reason Comments Med Refill Encounter Details Date Type Department Care Team (Late st Contact Info) Description 02/24/2019 Refill [facility] [address] [address] [place] [address] Arely Murrell MD [address] [place] [address] [address] [place] [address] Oral contraceptive pill surveillance Social History Tobacco [...]
--- OUTSIDE RECORDS SUMMARY | 2025-02-13 10:31 | XMS_ITS | Encounter Summary ---
Author Organization [facility] Address [address] [place] [address] Phone Care Team Providers Care Cathead Operator Name Role Phone Unavailable Primary Care Provider Unavailabl e Reason for Visit * Reason Comments Med Refill Encounter Details Date Type Department Care Team (Late st Contact Info) Description 02/09/2019 Refill [facility] [address] [place] [address] Arely Murrell MD [address] [place] [address] [address] [place] [address] Oral contraceptive pill surveillance Social History Tobacco [...]
--- OUTSIDE RECORDS SUMMARY | 2025-02-13 10:31 | XMS_ITS | Encounter Summary ---
Author Organization [facility] Address [address] [address] Phone Care Team Providers Care Adjunct Trainer Name Role Phone DevynLarisa CNM Unavailable [phone] Arely Murrell MD Unavailable Tash Hirsch MD Unavailable [phone] Arely Murrell MD Primary Care Provider [phone] Reason for Referral * Physical Therapy (Routine) - Closed Specialty Diagnoses / Procedures Referred By Pool dunlap Referred To Contact Physical Therapy Diagnoses Encounter for rehabilitation Tyree Alvarado MD Phone: tel: fax: [email or web address] [address] [address] Phone: tel: Referral ID Status Reason Start Date Expiration Date Visits Re quested Visits Authorized [id number] Closed 03/06/2019 05/05/2020 30 30 Encounter Details Date Type Department Care Team (Latest Contact Info) Description 03/06/2019 Transcribe Orders [facility] [address] [place] [address] Tyree Alvarado MD [facility], [address] [address] [email or web address] Encounter for rehabilitation (Primary Dx) Social History Tobacco Use Types Packs/Day Years Used Date Smoking Tobacco: Never Smokeless Tobacco: Never Alcohol Use Standard Drinks/Week Comments Yes 0 (1 standard drink = 0.6 oz pur e alcohol) rare;y Comments Unknown Sex and Gender Information Value Date Recorded Sex Assigned at Female 02/17/2018 8:44 PM EDT Legal Sex Female 4:47 PM EDT Gender Identity Female 02/17/2018 8:44 PM EDT Sexual Orientation Not on file documented as of this encounter Plan of Treatment Scheduled Referrals Name Type Priority Associated Diagnoses Orde r Schedule Ambulatory referral to [facility] Physical Therapy Outpatient Referral Routine Encounter for rehabilitation Ordered: 03/06/2019 documented as of this encounter Visit Diagnoses Diagnosis Encounter for rehabilitation- Primary documented in this encounter Care Teams Adjunct Trainer Relationship Specialty Start Date End Date Arely Murrell MD [address] [place] [address] PCP - General 04/20/17 Larisa Shepard CNM [address] [address] [email or web address] Historical LMR Provider 02/02/17 2 Arely Murrell MD [address] [place] [address] Historical LMR Provider 02/02/17 2 Tash Hirsch MD [address] [facility], 2nd [place] [address] Historical LMR Provider 02/02/17 documented as of this encounter Additional Source Comments The information contained in this document represents components of the legal health record. It is not the complete legal health record.[facility]
--- OUTSIDE RECORDS SUMMARY | 2025-02-13 10:31 | XMS_ITS | Encounter Summary ---
Author Organization [facility] Address [address] [place] [address] Phone Care Team Providers Care Eligibility And Occupancy Interviewer Name Role Phone Arely Murrell MD Primary Care Provider [phone] Encounter Details Date Type Department Care Team (Late st Contact Info) Description 04/14/2011 Nurse Only [address] [address] Social History Tobacco Use Types Packs/Day Years [...] 2011 01:37 pm Provider: Madelyn Galaviz RN (Ancillary Services Manager Therapy: Zena Jack MD; Support Teacher: Madelyn Galaviz RN) Location: [facility]. ECTIVE: CC: She is here [...] CAPTURE: Primary Diagnosis: V04.81 Flu Clinic Orders: 70896 Influenza virus vaccine, split virus, preservative free, > 3 years, for intramuscular use 40381 Immunization administration (includes percutaneous, intradermal, subcutaneous or intramuscular injec documented in this encounter Plan of Treatment Not on file documented as of this encounter Visit Diagnoses Not on filedocumented in this encounter Care Teams Eligibility And Occupancy Interviewer Relationship Specialty Start Date End Date Arely Murrell MD [address] [place] [address] PCP - General Pediatrics 03/21/17 02/06/19 documented as of this encounter
== END 2025-02-13 10:29 | disposition home or self-care (01) ==
LOC: HO.HWSM 09:17
PROVIDERS: PCP Nurse Practitioner Family; Visit Provider Advanced Practice Midwife
DX: Z30.09 Encounter for other general counseling and advice on contraception (principal); Z30.41 Encounter for surveillance of contraceptive pills; Q79.60 Ehlers-Danlos syndrome, unspecified; Z15.01 Genetic susceptibility to malignant neoplasm of breast; Z15.09 Genetic susceptibility to other malignant neoplasm
CPT/HCPCS: 99213

== ENCOUNTER → 2025-03-20 14:46 | Outpatient (BNV) | payer OTHER, SELFPAY | PROVIDERS: PCP Nurse Practitioner Family; Referring Provider Nurse Practitioner Family; Visit Provider Nurse Practitioner Family | DX: Z15.01 Genetic susceptibility to malignant neoplasm of breast (principal) | CPT/HCPCS: 99204 ==

== ENCOUNTER 2025-03-31 09:51 | Outpatient (REF) | payer OTHER, SELFPAY ==
--- NOTE | ~2025-03-31 | US_ITS ---
EXAMINATION: US DIAGNOSTIC ULTRASOUND BREAST, LEFT CLINICAL INFORMATION: Lump not appreciated on clinical exam. Reason for Exam-BRCA1 +; reported LT breast lump at 5 o'clock. History of left breast biopsy five years ago, which was benign according to the patient. COMPARISON: None available. FINDINGS: Targeted ultrasound of the left breast was performed at the location of the palpable concern as indicated by the patient. The survey was performed along the 6:00-7:00 axis. A 0.9 x 0.2 x 0.5 cm simple cyst is identified at 7 o'clock position 3 cm from the nipple. No abnormal vascularity demonstrated with color Doppler evaluation. US/US breast LT limited IMPRESSION: Left breast: No suspicious sonographic findings correlate with the palpable concern. Incidental 0.9 cm simple cyst at 7:00 3 cm from the nipple is benign, and no dedicated imaging follow-up needed. Clinical follow-up is recommended for the palpable concern, independent of imaging findings. Results are provided to the patient at time of visit by the technologist. ASSESSMENT: Category 2: Benign RECOMMENDATION: 1. Patient should be managed based on the clinical impression. 2. Otherwise, routine annual screening mammography. Electronically signed by: Radha Salinas MD 03/31/2025 11:19 AM EST
== END 2025-03-31 09:52 | disposition home or self-care (01) ==
LOC: HO.MAMMO 09:51
PROVIDERS: PCP Nurse Practitioner Family; Visit Provider Nurse Practitioner Family
DX: N63.23 Unspecified lump in the left breast, lower outer quadrant (principal); Z15.01 Genetic susceptibility to malignant neoplasm of breast; Z15.02 Genetic susceptibility to malignant neoplasm of ovary; Z15.05 Genetic susceptibility to malignant neoplasm of fallopian tube(s); Z15.060 Genetic susceptibility to colorectal cancer; Z15.068 Genetic susceptibility to other malignant neoplasm of digestive system
CPT/HCPCS: 76642

== ENCOUNTER → 2025-03-31 10:00 | Outpatient (BNV) | payer OTHER, SELFPAY | PROVIDERS: PCP Nurse Practitioner Family; Visit Provider Radiology Body Imaging | DX: N60.02 Solitary cyst of left breast (principal) | CPT/HCPCS: 76642 ==

== ENCOUNTER 2025-04-07 14:48 | Outpatient (AMB) | payer OTHER, SELFPAY ==
[2025-04-07 14:52] VITALS: BP 116/70; PULSE 92; TEMP 37.2; O2SAT 100; BMI 19.9
--- NOTE | 2025-04-07 14:52 | MHC.PC.OV ---
Vital Signs 04/07/25 14:52 Height 5 ft 4 in Weight 116 lb BMI 19.9 BP 116/70 Blood Pressure Location Lt brachial Position Sitting Pulse 92 Pulse Source Pulse Oximeter Temp 99.0 F Temp Source Oral Pulse Oximetry (%) 100 Oxygen Delivery Method Room Air Intake Visit Reasons: PE Exchange Trouble Shooter Required: No Accompanied by: Self / Same As Patient Allergies cephalexin Adverse Reaction (Verified 04/07/25 14:56) Anaphylaxis Penicillins Adverse Reaction (Verified 04/07/25 14:56) Anaphylaxis Tobacco use date assessed: 04/07/25 Dental Screening Dental Screen Date: 04/07/25 Did you have a dental visit in the last 12 months?: No Did you have a dental problem in the last 6 months where you did not have access to dental care?: No Was dental information given to patient?: Patient has dentist HPI PE HPI Details History of Present Illness The patient is a 29 year old female presenting for a physical exam. She recently tested positive for a BRCA gene mutation and has a scheduled follow-up with general surgery. Her medical history is also notable for established care with a outbound sales representative for Pap smears and a psychiatrist for medication management. Health Maintenance - The patient has a outbound sales representative for Pap smears. - The patient recently had a positive BRCA gene test and will follow up with general surgery. - She declined an influenza vaccination today. - An order for fasting labs has been placed. Social History Review of Systems - Cardiovascular: Denies chest pain. - Respiratory: Denies shortness of breath. - Gastrointestinal: Denies abdominal pain, hematochezia, constipation, and diarrhea. - Psychiatric: Denies suicidal ideation. Physical Exam General: Cooperative, healthy appearing, comfortable, no acute distress and well developed Orientation: Patient oriented x3 Limitations: No limitations Head: Normal to inspection Ears: Hearing grossly normal bilaterally Nose: Normal external nose present Face and sinus: Normal facial exam Eyes: Appearance normal, both eyes and all related structures Neck: Normal visual inspection and Yes full ROM Respiratory: Normal respiratory effort and able to speak in complete sentences. Clear to auscultation bilaterally Cardiovascular: Regular rate and rhythm. Normal S1 and S2 GI: Normal to inspection. Soft to palpation and nontender : testicles without masses/lesions and no hernias appreciated Skin: No rashes or lesions noted Neuro: Patient oriented x3 Extremities: Normal to inspection Results - Genetic testing: Positive for BRCA gene mutation. Plan 1. Encounter For General Adult Medical Examination Fasting labs were ordered for the patient to complete. She declined the influenza vaccination today. 2. Brca Gene Carrier The patient will follow up with general surgery for her positive BRCA gene status. Discussion Notes I addressed the patient's recent positive BRCA gene test result. She plans to follow up with general surgery for further management, as recommended. Fasting labs have been ordered, and the flu vaccination was offered but declined by the patient. The patient was instructed to call with any further questions or concerns. Patient Instructions - Please proceed to the lab to have your fasting bloodwork drawn. - Follow up with a general surgeon to discuss your recent positive BRCA gene test result. - You may call our office if you have any further questions or concerns. [facility] Medical History BRCA gene positive Arthritis ADHD Depression Migraines Surgical History No pertinent past surgical history Family History Maternal Aunt Mental health disorder Breast cancer Mother Mental health disorder Paternal Aunt Breast cancer Father Prostate cancer Social History Housing: House Alcohol intake: current Alcohol intake frequency: holidays/special occasions only Patient Tobacco Use Status: Never used Tobacco e-Cigarette/Vaping Use: Currently Using Substance Use Type: Marijuana service: No Current occupational status: employed Cognitive needs: No Hearing needs: No Vision needs: Yes Female Reproductive History Menstrual Age of Menarche: 17 Questionnaire PHQ-9 Over the last 2 weeks, how often have you been bothered by any of the following problems? 1. Little interest or pleasure in doing things: several days 2. Feeling down, depressed, or hopeless: several days 3. Trouble falling or staying asleep, or sleeping too much: several days 4. Feeling tired or having little energy: several days 5. Poor appetite or overeating: several days 6. Feeling bad about yourself - or that you are a failure or have let yourself or your family down: not at all 7. Trouble concentrating on things, such as reading the newspaper or watching television: several days 8. Moving or speaking so slowly that other people could have noticed. Or the opposite - being so fidgety or restless that you have been moving around a lot more than usual: not at all 9. Thoughts that you would be better off or of hurting yourself in some way: not at all Total score: 6 Depression Screening Interpretation: Negative Depression Screening Done: Yes 61064 - PHQ-9 Billing: Yes Source: Developed by Drs. Daren Crenshaw, Noy Larson, Sin Nguyen and colleagues, with an educational cinthia from [employer]. Thrive Questionnaire Date Thrive assessed: 11/08/23 I am a: Patient What is your living situation today?: I have a steady place to live Within the past 12 months, did the food you bought not last and you didn't have the money to get more?: Never true Within the past 12 months, did you worry whether your food would run out before you got money to buy more?: Never true Do you have trouble paying for medicines?: No Do you have trouble getting transportation to medical appointments?: No Do you have trouble paying your heating and electricity bill?: No Do you have trouble taking care of your child, family member or friend?: No Do you have trouble with day-to-day activities such as bathing, preparing meals, shopping, managing finances, etc.?: No Are you currently unemployed and looking for a job?: No Are you interested in more education?: No Please select the resources that you would like help with: None Currently or been in a relationship where the following occur: No concerns reported THRIVE Score: 0 AUDIT C Alcohol Use Questionnaire (AUDIT-C) 1. How often do you have a drink containing alcohol?: Monthly or less 2. How many drinks containing alcohol do you have on a typical day when you are drinking?: 1 or 2 3. How often do you have six or more drinks on one occasion?: Never Total Score: 1 TYE-7 AMB Questionnaire TYE-7 Date TYE - 7 assessed: 04/07/25 Feeling nervous, anxious, or on edge: 1 = Several days Not being able to stop or control worryin = Several days Worrying too much about different things: 1 = Several days Trouble relaxin = Several days Being so restless that it is hard to sit still: 1 = Several days Becoming easily annoyed or irritable: 0 = Not at all Feeling afraid as if something awful might happen: 1 = Several days Total TYE-7 score (0-4 normal; 5-9 mild; 10-14 moderate; 15-21 severe): 6 Source: Developed by Drs. Daren Crenshaw, Noy Larson, Sin Nguyen and colleagues, with an educational cinthia from [employer]. TYE-7 Assessment Billing TYE-7 Assessment Tool: TYE-7 Assessment 58913 Physical exam (Primary Care) Vital Signs: Last Vital Signs Temp 99.0 F 04/07/25 14:52 Pulse 92 04/07/25 14:52 BP 116/70 04/07/25 14:52 Pulse Ox 100 04/07/25 14:52 Oxygen Delivery Method Room Air 04/07/25 14:52 BMI result Body Mass Index 19.9 Tobacco/Smoking Status: Tobacco use Status Tobacco use date assessed 04/07/25 04/07/25 14:59 Patient Tobacco Use Status Never used Tobacco 04/07/25 14:59 e-Cigarette/Vaping Use Currently Using 04/07/25 14:59 PHQ-9: PHQ-9 Score PHQ-9: Total score 6 04/07/25 14:59 Depression Screening Interpretation: Negative Thrive Assessment: Date of Thrive Assessment Date Thrive assessed 11/08/23 04/07/25 14:59 Currently or been in a relationship where the following occur: No concerns reported Coding Level of Care Code Est Pt Prev Care 18-39y(61442) Diagnoses Physical exam Z00.00 BRCA gene positive Z15.01; Z15.09 Additional Codes TYE-7 Assessment Billing - TYE-7 Assessment Tool: TYE-7 Assessment 01067 ([id number]) PHQ-9 - 30093 - PHQ-9 Billing: Yes ([id number]) Assessment & Plan Assessment & Plan (1) Physical exam: Code(s): Z00.00 - Encounter for general adult medical examination without abnormal findings Category: Medical (2) BRCA gene positive: Code(s): Z15.01 - Genetic susceptibility to malignant neoplasm of breast; Z15.09 - Genetic susceptibility to other malignant neoplasm Category: Medical Plan . Orders: Orders Complete Blood Count Auto Diff Today Z00.00 - Encounter for general adult medical examination without abnormal findings UA CC w/rflx Micro + Cult Today Z00.00 - Encounter for general adult medical examination without abnormal findings Comprehensive [place]. Panel Fast Today Z00.00 - Encounter for general adult medical examination without abnormal findings TSH reflex Free T4 Today Z00.00 - Encounter for general adult medical examination without abnormal findings Lipid Panel Today Z00.00 - Encounter for general adult medical examination without abnormal findings
--- OUTSIDE RECORDS SUMMARY | 2025-04-07 18:05 | XMS_ITS | Encounter Summary ---
Author Organization [facility] Address [address] [place] [address] Phone Care Team Providers Care Chief Mechanical Engineer Name Role Phone Arely Murrell MD Primary Care Provider [phone] Encounter Details Date Type Department Care Team (Late st Contact Info) Description 03/08/2010 Nurse Only [facility], [address] [address] Social History Tobacco Use Types Packs/Day Years [...] 2010 03:20 pm Provider: Magaly Christensen LPN (It Generalist: Aj Tan MD; Commercial Collections Specialist: Magaly Christensen LPN) Location: [facility]. ECTIVE: CC: She is here [...] CAPTURE: Primary Diagnosis: V081 Flu Clinic Orders: 58168 Influenza virus vaccine, split virus, preservative free, > 3 years, for intramuscular use 54969 Immunization administration (includes percutaneous, intradermal, subcutaneous or intramuscular injec documented in this encounter Plan of Treatment Not on file documented as of this encounter Visit Diagnoses Not on filedocumented in this encounter Care Teams Chief Mechanical Engineer Relationship Specialty Start Date End Date Arely Murrell MD [address] [place] [address] [address] [place] [address] PCP - General Pediatrics 03/21/17 02/06/19 documented as of this encounter
--- OUTSIDE RECORDS SUMMARY | 2025-04-07 18:05 | XMS_ITS | Encounter Summary ---
Author Organization [facility] Address [address] [place] [address] Phone Care Team Providers Care Funnel Setter Name Role Phone Arely Murrell MD Primary Care Provider [phone] Reason for Visit * Reason Comments Med Refill Encounter Details Date Type Department Care Team (Late st Contact Info) Description 03/21/2018 Refill [facility] 2 [place] [address] Arely Murrell MD [address] [place] [address] 2 [place] [address] Oral contraceptive pill surveillance Social History Tobacco [...] surveillance documented in this encounter Care Teams Funnel Setter Relationship Specialty Start Date End Date Arely Murrell MD [address] [place] [address] 2 [place] [address] PCP - General Pediatrics 03/21/17 02/06/19 documented as of this encounter
--- OUTSIDE RECORDS SUMMARY | 2025-04-07 18:05 | XMS_ITS | Data Portability ---
Author Organization [facility] [address] Address [address] [place] [address] Care Team Providers Care Pickers Material Handlers Name Role Phone LUIS LOPEZ Primary Care Provider [phone] Assessment Encounter Date Assessment Date Assessment LastModified [...] Orders prednisone 10 mg tablet 2023 024 [facility][id number], [address] [place], [address], 10:07:31 hydroxyzine HCl 25 mg tablet 2023 024 [facility][id number], [address] [place], [address], 10:07:30 Patient TargetsNo targets recorded. Patient Instructions Encounter Date Encounter Id Patient Instructions Last Modified By Organization Details Last Modified Time 08/18/2023 [id number] bruises: care instructions aniceto Not available 08/18/2023 16:24:56 09/04/2023 [id number] Poison Michael Rash Follow these important instructions: [...] you must use them. - Use a mandrel cleaner, or wear rubber gloves when you wash [...] Address Organization Details Recorded Time Depressive disorder 47295448 Active Fiona Green [address] null, [place] - [facility] 4 16:08:36 Attention deficit hyperactivity disorder 452463925 Active Fiona [address] null, [place] - [facility] 4 16:09:18 Superficial contusion of skin of thigh 234659270 Active 2023 DONNY SMITH NP [address] [place] , [place], [id number], [place] - [facility] 4 16:21:24 Contact dermatitis caused by urushiol from [facility] michael 953003173 Active 2023 Vijay Swain NP [address] [place] , [place], [id number], [place] - [facility] 4 10:05:53 Problem Notes None recorded. Medical Equipment None Reported. Allergies Allergen ID Allergen Name Allergen Category Reaction Reaction Severity Criticality Documentation Date Start Date Code Code System Note Provider Name and Address Organization Details Recorded Time 791086 cephalexi n medicatio n Not available Not available Not available 08/18/[address] null, [place] - [facility] 4 16:07:06 627724 Product containin g penicilli n (product) medicatio n Not available Not available Not available 08/18/[address] null, [place] - [facility] 16:07:14 Medications [...] weight Body temperature Respiratory rate Oxygen saturation Heart rate Systolic And Diastolic Provider Name and Address Organization Details Last Updated DateTime 4 162.56 cm 19.9 kg/m2 18362.7 1 g 97.3 [degF] 16 /min 100 % 76 /min 112/80 mm[Hg] Fiona Lakisha PA - [facility] 16:12:28 Date Recorded Body height Body mass index (BMI) Body weight Oxygen saturation Pain severity - 0-10 verbal numeric rating [Score] - Reported Heart rate Respiratory rate Body temperature Systolic And Diastolic Provider Name and Address Organization Details Last Updated DateTime 4 162.56 cm 19.9 kg/m2 13516.7 1 g 99 % 0 86 /min 18 /min 98.6 [degF] 116/80 mm[Hg] Nicolasa Knight PA - [facility] 4 09:58:36 Social History None recorded. [...] ICD10 Code Diagnosis IMO Codes Diagnosis Note [id number] [address] [place] [address] 01/04/2021 15:03:08 01/04/2021 16:58:20 [id number] [address] [place] [address] 11/25/2018 10:40:44 11/25/2018 10:55:29 [id number] [address] [place] [address] 12/04/2020 15:09:57 12/04/2020 16:33:32 [id number] [address] [place] [address] 06/02/2017 17:12:23 06/02/2017 18:30:13 [id number] [address] [place] [address] 12/24/2020 12:34:44 12/24/2020 14:50:51 [id number] DONNY SMITH, SURENDRA [address] [place] [address] 08/18/2023 15:49:38 08/18/2023 16:27:50 Superficial contusion of skin of thigh 993591716 S70.12XA [id number] Vijay Swain, SURENDRA [address] [place] [address] 09/04/2023 09:51:02 09/04/2023 10:08:54 Contact dermatitis caused by urushiol from [facility] michael [id number] L25.5 Based on your presentati on and [...] Donis Member ID Guarantor Name 09/04/2023 1 [facility] (MEDICAID REPLACEMENT - HMO) ALDO Hollis [id number] Rhianna Hollis 08/18/2023 1 [facility] (PPO) [id number] Ignacio Hollis [id number] Rhianna Hollis Notes Date Note Type Note [...] nausea, andno vomiting. DONNY SMITH NP [address] [place], [address], [place] - [facility] 08/18/2023 16:29:46 09/04/19 [...] Swain NP [address] [place], [address], [place] - [facility] 09/04/2023 10:08:32 OBGyn Episode No OBEpisode recorded.
--- OUTSIDE RECORDS SUMMARY | 2025-04-07 18:05 | XMS_ITS | Encounter Summary ---
Author Organization [facility] Address [address] [place] [address] Phone Care Team Providers Care Order Dispatcher Name Role Phone Arely Murrell MD Primary Care Provider [phone] Encounter Details Date Type Department Care Team (Late st Contact Info) Description 04/14/2011 Nurse Only [address] [address] Social History Tobacco Use Types Packs/Day Years [...] 2011 01:37 pm Provider: Madelyn Galaviz RN (Drill Press Operator For Metal: Zena Jack MD; Asset Protection Associate: Madelyn Galaviz RN) Location: [facility]. ECTIVE: CC: She [...] CAPTURE: Primary Diagnosis: V04.81 Flu Clinic Orders: [id number] Influenza virus vaccine, split virus, preservative free, > 3 years, for intramuscular use 19415 Immunization administration (includes percutaneous, intradermal, subcutaneous or intramuscular injec documented in this encounter Plan of Treatment Not on file documented as of this encounter Visit Diagnoses Not on filedocumented in this encounter Care Teams Order Dispatcher Relationship Specialty Start Date End Date Arely Murrell MD [address] [place] [address] PCP - General Pediatrics 03/21/17 02/06/19 documented as of this encounter
--- OUTSIDE RECORDS SUMMARY | 2025-04-07 18:05 | XMS_ITS | Encounter Summary ---
Author Organization [facility] Address [address] [place] [address] Phone Care Team Providers Care Precinct Police Sergeant Name Role Phone Unavailable Primary Care Provider Unavailabl e Reason for Visit * Reason Comments Med Refill Encounter Details Date Type Department Care Team (Late st Contact Info) Description 02/24/2019 Refill [facility] [address] [place] [address] Arely Murrell MD [address] [place] [address] [address] [place] [address] Oral contraceptive pill surveillance Social History Tobacco [...]
--- OUTSIDE RECORDS SUMMARY | 2025-04-07 18:05 | XMS_ITS | Encounter Summary ---
Author Organization [facility] Address [address] [address] Phone Care Team Providers Care Security Systems Administrator Name Role Phone Larisa Shepard CNM, MPH Unavailable Arely Murrell MD Unavailable Tash Hirsch MD Unavailable [phone] Arely Murrell MD Primary Care Provider [phone] Reason for Referral * Physical Therapy (Routine) - Closed Specialty Diagnoses / Procedures Referred By Pool dunlap Referred To Contact Physical Therapy Diagnoses Encounter for rehabilitation Tyree Alvarado MD Phone: tel: fax: [email or web address] [facility] [address] [place] [address] Phone: tel: Referral ID Status Reason Start Date Expiration Date Visits Re quested Visits Authorized [id number] Closed 03/06/2019 05/05/2020 30 30 Encounter Details Date Type Department Care Team (Latest Contact Info) Description 03/06/2019 Transcribe Orders [facility] [address] [place] [address] Tyree Alvarado MD [address] [place] [address], [address] [address] [email or web address] Encounter for rehabilitation (Primary Dx) Social History [...] Diagnoses Orde r Schedule Ambulatory referral to [facility] Physical Therapy Outpatient Referral Routine Encounter for rehabilitation Ordered: 03/06/2019 documented as of this encounter Visit Diagnoses Diagnosis Encounter for rehabilitation- Primary documented in this encounter Care Teams Security Systems Administrator Relationship Specialty Start Date End Date Arely Murrell MD [address] [facility] 2 [place] [address] PCP - General 04/20/17 Larisa Shepard CNM, MPH [address] [address] [email or web address] Historical LMR Provider 02/02/17 2 Arely Murrell MD [address] [place] [address] Historical LMR Provider 02/02/17 2 Tash Hirsch MD [address] [facility], 2nd [place] [address] [email or web address] Historical LMR Provider 02/02/17 documented as of this encounter Additional Source Comments The information contained in this document represents components of the legal health record. It is not the complete legal health record.[facility]
--- OUTSIDE RECORDS SUMMARY | 2025-04-07 18:05 | XMS_ITS | Encounter Summary ---
Author Organization [facility] Address [address] [place] [address] Phone Care Team Providers Care Diamond Saw Operator Name Role Phone Unavailable Primary Care Provider Unavailabl e Reason for Visit * Reason Comments Med Refill Encounter Details Date Type Department Care Team (Late st Contact Info) Description 02/09/2019 Refill [facility] [address] [address] [place] [address] Arely Murrell MD [address] [place] [address] [address] [place] [address] Oral contraceptive pill surveillance Social History Tobacco [...]
--- OUTSIDE RECORDS SUMMARY | 2025-04-07 18:05 | XMS_ITS | Clinical Summary ---
Author Organization [facility] Address [address] [id number] Phone Care Team Providers Care Entry Rep Name Role Phone Arely Murrell MD Primary Care Provider [phone] Allergies Active Allergy Reactions Criticality Noted Date [...] SEE NARRATIVE - 11/24/2020 2:27 PM EDT [address] [address] Activities Assistant: Alysia Card MD CHILD PROTECTION SPECIALIST Cytology Report FINAL DIAGNOSIS A. PAP SMEAR [...] : 1995 (Age: 25) Sex: F Institution: [facility] Location: [facility] Date of Collection: 11/20/2020 Date of Reported: 11/24/2020 14:27 Results to: Camila Heath NP Camila Wilcox NP CYTOLOGY ORDERABLES Final R esult SEE NARRATIVE from Last 3 Months or Most Recently Relevant to Health [place] [address] [employer] TOTAL CHOICE INDEMNITY [employer] TOTAL CHOICE INDEMNITY [employer] TOTAL CHOICE INDEMNITY [employer] TOTAL CHOICE INDEMNITY [employer] TOTAL CHOICE INDEMNITY [facility] TOTAL CHOICE INDEMNITY [employer] TOTAL CHOICE INDEMNITY [facility] TOTAL CHOICE INDEMNITY Care Teams Entry Rep Relationship Specialty Start Date End Date Arely Murrell MD [address] [place] [address] [address] [place] [address] PCP - General 04/20/17 Additional Source Comments The information contained in this document represents components of the legal health record. It is not the complete legal health record.[facility]
--- OUTSIDE RECORDS SUMMARY | 2025-04-07 18:05 | XMS_ITS | Clinical Summary ---
Author Organization [facility] Address [address] [place] [address] Care Team Providers Care Ecology Teacher Name Role Phone None, Pcp MD Primary Care Provider January Maynard Unavailable Allergies Active Allergy Reactions Criticality Noted Date Comments Cephalexin Other (See Comments) 11/25/2018 Pt reports throat swelling Penicillins Other (See Comments) 06/18/2020 Pt reports throat swelling Medications buPROPion (WELLBUTRIN SR) 150 MG 12 hr tablet TAKE 1 TABLET BY MOUTH EVERY DAY IN THE MORNING 04/08/2020 Active escitalopram oxalate (LEXAPRO) 10 MG tablet 7 mg. 05/29/2020 Active levonorgestrel- ethinyl estradiol (AVIANE,ALESSE, LESSINA) 0.1-20 mg-mcg per tablet 1 tablet Active methylphenidate ER (METADATE CD) 20 MG ER capsule Take 1 capsule (20 mg total) by mouth every morning. Active Active Problems No known active problems Family History Medical History Relation Comments Irritable bowel syndrome Mother Relation Status Comments Mother Social History Tobacco Use Types Packs/Day Years Used Date Smoking Tobacco: Never Smokeless Tobacco: Never Tobacco Cessation:Counseling Given: Not Answered Alcohol Use Standard Drinks/Week Comments Yes 0 (1 standard drink = 0.6 oz pur e alcohol) Comments Unknown Sex and Gender Information Value Date Recorded Sex Assigned at Female 06/21/2020 10:48 AM EST Legal Sex Female 2:38 PM EST Gender Identity Female 06/21/2020 10:48 AM EST Sexual Orientation Not on file Last Filed Vital Signs Vital Sign Reading Time Taken Comments Blood Pressure 109/74 10/20/2022 2:19 PM EDT Pulse 79 10/20/2022 2:19 PM EDT Temperature 36.7 C (98.1 F) 10/20/2022 2:19 PM EDT Respiratory Rate 16 06/21/2020 2:16 PM EST Oxygen Saturation 98% 10/20/2022 2:19 PM EDT Inhaled Oxygen Concentration - - Weight 53.4 kg (117 lb 11.2 oz) 10/20/2022 2:19 PM EDT Height 162.6 cm (5' 4 ) 10/20/2022 2:19 PM EDT Body Mass Index 20.2 10/20/2022 2:19 PM EDT Plan of Treatment Health Maintenance Due Date Last Done Comments Blood Pressure 1995 Depression Screening 2007 Hepatitis C Screening 10/12/2013 Cervical Cancer Screening 10/12/2016 Pap Smear 10/12/2016 COVID-19 Vaccine ( season) 2024 01/03/2022, 04/12/2021, 07/30/2020, Additional history exists Influenza Vaccine (#1) 2024 , 04/08/2020, 02/07/2020, Additional history exists DTaP,Tdap,and Td Vaccines (8 - Td or Tdap) 11/16/2027 11/15/2017, 10/05/2007, 12/06/1999, Additional history exists Meningococcal Vaccines Completed 11/23/2011, 2008 Meningococcal B Vaccines Completed 07/05/2017, 04/2016 Pneumococcal Vaccine Aged Out No long er eligible based on patient's age to complete this topic Insurance [facility] Care Teams Ecology Teacher Relationship Specialty Start Date End Date None, Pcp, PCP - General 06/18/20 January Steel PCP - Insurance Assigned PCP 10/20/22
--- OUTSIDE RECORDS SUMMARY | 2025-04-07 18:05 | XMS_ITS | Clinical Summary ---
Author Organization [facility] Address [address] [place] [address] Phone Care Team Providers Care Civil Engineer'S Aide Name Role Phone Unavailable Primary Care Provider [...] complete this topic Procedures * Due to [place] [employer] law, this organization might not be sharing sensitive test results. Procedure Name Priority Date/Time Associated Diagnosis Comments CHLAMYDIA TRACHOMATIS, AMPLIFIED Routine 11/15/2017 10:32 AM EDT Encounter for screening examination for sexually transmitted disease from Last 3 Months or Most Recently Relevant to Health Maintenance Results * Due to [place] [employer] law, this organization might not be sharing sensitive test results. * Chlamydia trachomatis, Amplified (11/15/2017 10:32 AM EDT) Chlamydia Trachomatis, DNA Probe NEGATIVE (NEG) [facility] Comment: No Chlamydia Trachomatis RNA detected in this patient's sample (REFERENCE RANGE/NORMAL VALUE: NOT DETECTED) Note: This test uses freight checker- mediated amplification method to detect rRNA from C. Trachomatis Testing performed or reported by [facility], a Service of [facility], [facility] [address], [place] [address] CLIA [id number] Sruthi Engel MD, PhD, Roll Skinner Urine (Urine) 11/15/2017 10: 32 AM EDT 11/15/2017 6:17 PM EDT us Arely Murrell MD LAB MICROBIOLOGY - GENERAL ORDER BERTHA Final Result [facility] from Last 3 Months or Most Recently Relevant to Health Maintenance
== END 2025-04-07 15:38 | disposition home or self-care (01) ==
LOC: HO.HMCC 14:50
PROVIDERS: PCP Nurse Practitioner Family; Visit Provider Nurse Practitioner Family
DX: Z00.00 Encounter for general adult medical examination without abnormal findings (principal); Z15.01 Genetic susceptibility to malignant neoplasm of breast; Z15.09 Genetic susceptibility to other malignant neoplasm

== ENCOUNTER → 2025-04-07 14:48 | Outpatient (BNVA) | payer OTHER, SELFPAY | PROVIDERS: PCP Nurse Practitioner Family; Visit Provider Nurse Practitioner Family | DX: Z00.00 Encounter for general adult medical examination without abnormal findings (principal); Z13.31 Encounter for screening for depression; Z13.39 Encounter for screening examination for other mental health and behavioral disorders; Z15.01 Genetic susceptibility to malignant neoplasm of breast; Z15.09 Genetic susceptibility to other malignant neoplasm | CPT/HCPCS: 96127; 99395 ==

== ENCOUNTER → 2025-04-09 11:28 | Outpatient (AMB) | payer OTHER, SELFPAY ==
--- NOTE | 2025-04-09 11:34 | MHC.OFFVIS ---
Vital Signs 04/09/25 11:44 Height 5 ft 4 in Weight 118 lb 2 oz BMI 20.3 BP 125/71 Blood Pressure Location Lt brachial Position Sitting Pulse 105 H Intake Visit Reasons: BRCA1 gene mutation Intake Note: Patient is seen in office for BRCA gene mutation. Pt c/o: has an extensive family history of cancer, recently had felt a lump on the left breast and had an ultrasound done, 5 yrs ago had a similar issue and lump was bx (benign), denies any other concerns Colorer Hides And Skins Required: No Allergies cephalexin Adverse Reaction (Verified 04/09/25 11:41) Anaphylaxis Penicillins Adverse Reaction (Verified 04/09/25 11:41) Anaphylaxis HPI HPI BRCA1 gene mutation: Details: 29-year-old female referred for BRCA1 gene mutation. She was seeing a specialist for testing for Berlin-Danlos syndrome in [place] and she mentioned a family history of breast cancer. She was therefore tested for the BRCA gene mutation and unfortunately, this showed was positive for the mutation of the BRCA1 gene She describes having a paternal aunts with breast cancer at the age of 30 and 40. Her menarche was at the age of 17. She has never been . She has regular periods. [facility] Medical History BRCA gene positive Arthritis ADHD Depression Migraines Surgical History No pertinent past surgical history Family History (Updated 04/09/25 @ 11:49 by KEVIN Bautista) Maternal Aunt Mental health disorder Breast cancer Mother Mental health disorder Paternal Aunt Breast cancer Father Prostate cancer Maternal Grandfather Prostate cancer Maternal Aunt Thyroid cancer Family/Other Cancer of unknown origin Family/Other Breast cancer Social History Housing: House Alcohol intake: current Alcohol intake frequency: holidays/special occasions only Patient Tobacco Use Status: Never used Tobacco e-Cigarette/Vaping Use: Currently Using Substance Use Type: Marijuana service: No Current occupational status: employed Cognitive needs: No Hearing needs: No Vision needs: Yes Female Reproductive History Menstrual Age of Menarche: 17 Review of Systems Const Denies chills and Denies fever(s) Card Denies chest pain, Denies dyspnea and Denies dyspnea on exertion Resp Denies cough, Denies dyspnea and Denies dyspnea on exertion GI Denies hematochezia and Denies change in bowel habits Denies hematuria Musc Denies back pain and Denies limited range of motion Neuro Denies focal weakness and Denies convulsions Psych Denies depression and Denies mood swings Physical Exam Vital Signs: Last Vital Signs Pulse 105 H 04/09/25 11:44 BP 125/71 04/09/25 11:44 BMI result Body Mass Index 20.3 Const General: comfortable and no acute distress Orientation/consciousness: patient oriented x3 Neck Neck: Yes no lymphadenopathy Chest Other: No palpable breast masses, no axillary lymphadenopathy, no nipple or skin changes Resp Auscultation: clear to auscultation bilaterally Cardio Rhythm: regular rhythm GI Palpation (GI): Soft to palpation, nontender and no guarding Neuro General: patient oriented x3 Assessment & Plan Assessment & Plan (1) 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 Removal of the ovaries as well as the fallopian tubes we will also significantly decrease her risk for ovarian cancer. I will also send her to the oncologist as aromatase inhibitors as well as estrogen receptor gudelia significant lower the chance of her getting breast cancer and ovarian cancer. She should undergo yearly screening with mammogram, with an MRI of the breasts annually as well in between her mammograms. She should be screened for ovarian cancer with a transvaginal ultrasound and CA 125. I also emphasized to her the importance of healthy behaviors including staying within recommended body mass index and remaining fistula active. She should be vigilant with regards to changes on her breasts as well. I will arrange for her to be seen by our oncologist. After the above discussion, she stated that she is interested in prophylactic mastectomy with immediate reconstruction. We are going to assist her with a referral to the breast surgeon in [place] so she can have the immediate reconstruction . She will be back in the office to have a full genetic counseling and screening with [facility]. She also mentioned that she was interested in prophylactic oophorectomy and salpingectomy, but would like to have her eggs preserved for future IVF. I explained to her that she can be seen by the IVF specialist in [place] for this. Orders: Orders CA-125 04/09/25 Z15.01 - Genetic susceptibility to malignant neoplasm of breast, Z15.02 - Genetic susceptibility to malignant neoplasm of ovary, Z15.05 - Genetic susceptibility to malignant neoplasm of fallopian tube(s), Z15.060 - Genetic susceptibility to colorectal cancer, Z15.068 - Genetic susceptibility to other malignant neoplasm of digestive system US pelvic and transvaginal 04/09/25 Z15.01 - Genetic susceptibility to malignant neoplasm of breast, Z15.02 - Genetic susceptibility to malignant neoplasm of ovary, Z15.05 - Genetic susceptibility to malignant neoplasm of fallopian tube(s), Z15.060 - Genetic susceptibility to colorectal cancer, Z15.068 - Genetic susceptibility to other malignant neoplasm of digestive system Referrals Hematology & Oncology Referral Z15.01 - Genetic susceptibility to malignant neoplasm of breast, Z15.02 - Genetic susceptibility to malignant neoplasm of ovary, Z15.05 - Genetic susceptibility to malignant neoplasm of fallopian tube(s), Z15.060 - Genetic susceptibility to colorectal cancer, Z15.068 - Genetic susceptibility to other malignant neoplasm of digestive system Coding Level of Care Code New Pt Level 4 (35034) Diagnoses BRCA1 gene mutation positive in female Z15.01; Z15.02; Z15.05; Z15.060; Z15.068
--- OUTSIDE RECORDS SUMMARY | 2025-04-09 11:36 | XMS_ITS | Data Portability ---
Author Organization [facility] [address] Address [address] [place] [address] Care Team Providers Care Nsh Teacher Name Role Phone LUIS LOPEZ Primary Care [...] Orders prednisone 10 mg tablet [address] [facility][id number], [address] [place], [address], 10:07:31 hydroxyzine HCl 25 mg tablet [address] [facility][id number], [address] [place], [address], 10:07:30 Patient TargetsNo targets recorded. Patient Instructions Encounter Date Encounter Id Patient Instructions Last Modified By Organization Details Last Modified Time 08/18/2023 [id number] bruises: care instructions aniceto Not available 08/18/2023 16:24:56 09/04/2023 [id number] Poison Michael Rash Follow these important instructions: [...] you must use them. - Use a hub borer, or wear rubber gloves when you wash [...] Address Organization Details Recorded Time Depressive disorder 78850427 Active Fiona [place] null, [place] - [facility] 4 16:08:36 Attention deficit hyperactivity disorder 773912737 Active Fiona [place] - [facility] 4 16:09:18 Superficial contusion of skin of thigh 155667712 Active 2023 DONNY SMITH NP [address] , [place], [address], [place] - [facility] 4 16:21:24 Contact dermatitis caused by urushiol from [facility] michael 758709086 Active 2023 Vijay Swain NP [address] , [place], [address], [place] - [facility] 4 10:05:53 Problem Notes None recorded. Medical Equipment None Reported. Allergies Allergen ID Allergen Name Allergen Category Reaction Reaction Severity Criticality Documentation Date Start Date Code Code System Note Provider Name and Address Organization Details Recorded Time 945777 cephalexi n medicatio n Not available Not available Not available 08/18/2023 2231 RxNorm Fiona [place] null, [place] - [facility] 4 16:07:06 651541 Product containin g penicilli n (product) medicatio n Not available Not available Not available 08/18/2023 71548 8001 SNOMED Fiona [place] null, [place] - [facility] 16:07:14 Medications [...] Updated DateTime 4 162.56 cm 19.9 kg/m2 82175.7 1 g 97.3 [degF] 16 /min 100 [...] Updated DateTime 4 162.56 cm 19.9 kg/m2 27151.7 1 g 99 % 0 86 /min [...] ICD10 Code Diagnosis IMO Codes Diagnosis Note [id number] [address] [place] [address] 01/04/2021 15:03:08 01/04/2021 16:58:20 [id number] [address] [place] [address] 11/25/2018 10:40:44 11/25/2018 10:55:29 [id number] [address] [place] [address] 12/04/2020 15:09:57 12/04/2020 16:33:32 [id number] [address] [place] [address] 06/02/2017 17:12:23 06/02/2017 18:30:13 [id number] [address] [place] [address] 12/24/2020 12:34:44 12/24/2020 14:50:51 [id number] DONNY SMITH, SURENDRA [address] [place] [address] 08/18/2023 15:49:38 08/18/2023 16:27:50 Superficial contusion of skin of thigh [id number] S70.12XA [id number] Vijay Swain, SURENDRA [address] [place] [address] 09/04/2023 09:51:02 09/04/2023 10:08:54 Contact dermatitis caused by urushiol from [facility] michael [id number] L25.5 Based on your presentati on and [...] Donis Member ID Guarantor Name 09/04/2023 1 [facility] (MEDICAID REPLACEMENT - HMO) ALDO Hollis [id number] Rhianna Hollis 08/18/2023 1 [facility] (PPO) [id number] Ignacio Hollis [id number] Rhianna Hollis Notes Date Note Type Note [...] SMITH NP [address] [place], [address], [place] - [facility] 08/18/2023 16:29:46 09/04/19 [...] Swain NP [address] [place], [address], [place] - [facility] 09/04/2023 10:08:32 OBGyn Episode No OBEpisode recorded.
--- OUTSIDE RECORDS SUMMARY | 2025-04-09 11:36 | XMS_ITS | Clinical Summary ---
Author Organization [facility] Address [address] [place] [address] Phone Care Team Providers Care Cash Accountant Name Role Phone Unavailable Primary Care Provider [...] complete this topic Procedures * Due to [place] Lot[employer] law, this organization might not be sharing sensitive test results. Procedure Name Priority Date/Time Associated Diagnosis Comments CHLAMYDIA TRACHOMATIS, AMPLIFIED Routine 11/15/2017 10:32 AM EDT Encounter for screening examination for sexually transmitted disease from Last 3 Months or Most Recently Relevant to Health Maintenance Results * Due to [place] law, this organization might not be sharing sensitive test results. * Chlamydia trachomatis, Amplified (11/15/2017 10:32 AM EDT) Chlamydia Trachomatis, DNA Probe NEGATIVE (NEG) [facility] Comment: No Chlamydia Trachomatis RNA detected in this patient's sample (REFERENCE RANGE/NORMAL VALUE: NOT DETECTED) Note: This test uses bead preparer- mediated amplification method to detect rRNA from C. Trachomatis Testing performed or reported by [facility], a Service of [facility], [facility] [address], [place] [address] CLIA [id number] Sruthi Engel MD, PhD, Liner Checker Urine (Urine) 11/15/2017 10: 32 AM EDT 11/15/2017 6:17 PM EDT us Arely Murrell MD LAB MICROBIOLOGY - GENERAL ORDER BERTHA Final Result [facility] from Last 3 Months or Most Recently Relevant to Health Maintenance
--- OUTSIDE RECORDS SUMMARY | 2025-04-09 11:36 | XMS_ITS | Clinical Summary ---
Author Organization [facility] Address [address] [place] [address] Care Team Providers Care Container Coordinator Name Role Phone None, Pcp MD Primary [...] patient's age to complete this topic Insurance [facility] Care Teams Container Coordinator Relationship Specialty Start Date End Date None, Pcp, PCP - General 06/18/20 January Steel PCP - Insurance Assigned PCP 10/20/22
--- OUTSIDE RECORDS SUMMARY | 2025-04-09 11:36 | XMS_ITS | Encounter Summary ---
Author Organization [facility] Address [address] [place] [address] Phone Care Team Providers Care Electrician Supervisor Airplane Name Role Phone Unavailable Primary Care Provider Unavailabl e Reason for Visit * Reason Comments Med Refill Encounter Details Date Type Department Care Team (Late st Contact Info) Description 02/24/2019 Refill [facility] [address] [address] [place] [address] Arely Murrell MD [address] [place] [address] [address] [place] [address] Oral contraceptive pill surveillance Social History Tobacco [...]
--- OUTSIDE RECORDS SUMMARY | 2025-04-09 11:36 | XMS_ITS | Encounter Summary ---
Author Organization [facility] Address [address] [place] [address] Phone Care Team Providers Care Glove Examiner Name Role Phone Arely Murrell MD Primary Care Provider [phone] Encounter Details Date Type Department Care Team (Late st Contact Info) Description 03/08/2010 Nurse Only [facility], [address] [address] Social History Tobacco Use Types Packs/Day Years [...] 2010 03:20 pm Provider: Magaly Christensen LPN (Internet Designer: Aj Tan MD; Flask Pusher: Magaly Christensen LPN) Location: [place] [facility]. ECTIVE: CC: She is here for the [...] CAPTURE: Primary Diagnosis: V081 Flu Clinic Orders: 95100 Influenza virus vaccine, split virus, preservative free, > 3 years, for intramuscular use 93007 Immunization administration (includes percutaneous, intradermal, subcutaneous or intramuscular injec documented in this encounter Plan of Treatment Not on file documented as of this encounter Visit Diagnoses Not on filedocumented in this encounter Care Teams Glove Examiner Relationship Specialty Start Date End Date Arely Murrell MD [address] [place] [address] [address] [place] [address] PCP - General Pediatrics 03/21/17 02/06/19 documented as of this encounter
--- OUTSIDE RECORDS SUMMARY | 2025-04-09 11:36 | XMS_ITS | Encounter Summary ---
Author Organization [facility] Address [address] [place] [address] Phone Care Team Providers Care Firer Automatic Stoker Name Role Phone Arely Murrell MD Primary Care Provider [phone] Encounter Details Date Type Department Care Team (Late st Contact Info) Description 04/14/2011 Nurse Only [address] [address] Social History Tobacco Use Types Packs/Day Years [...] 2011 01:37 pm Provider: Madelyn Galaviz RN (Online Education Manager: Zena Jack MD; Sterile Process Tech: Madelyn Galaviz RN) Location: [facility]. ECTIVE: CC: She is here for [...] CAPTURE: Primary Diagnosis: V04.81 Flu Clinic Orders: 92071 Influenza virus vaccine, split virus, preservative free, > 3 years, for intramuscular use 76101 Immunization administration (includes percutaneous, intradermal, subcutaneous or intramuscular injec documented in this encounter Plan of Treatment Not on file documented as of this encounter Visit Diagnoses Not on filedocumented in this encounter Care Teams Firer Automatic Stoker Relationship Specialty Start Date End Date Arely Murrell MD [address] [place] [address] PCP - General Pediatrics 03/21/17 02/06/19 documented as of this encounter
--- OUTSIDE RECORDS SUMMARY | 2025-04-09 11:36 | XMS_ITS | Clinical Summary ---
Author Organization [facility] Address [address] [id number] Phone Care Team Providers Care Sales And Marketing Professional Name Role Phone Arely Murrell MD Primary Care Provider [phone] Allergies Active Allergy Reactions Criticality Noted Date [...] SEE NARRATIVE - 11/24/2020 2:27 PM EDT [address] [address] Ratoprinter: Alysia Card MD RN TELEPHONE TRIAGE Cytology Report FINAL DIAGNOSIS A. PAP SMEAR [...] : 1995 (Age: 25) Sex: F Institution: [facility] Location: [facility] Date of Collection: 11/20/2020 Date of Reported: 11/24/2020 14:27 Results to: Camila Heath NP Camila Wilcox NP CYTOLOGY ORDERABLES Final R esult SEE NARRATIVE from Last 3 Months or Most Recently Relevant to Health Maintenance [place] [id number] [facility] TOTAL CHOICE INDEMNITY [employer] TOTAL CHOICE INDEMNITY [employer] TOTAL CHOICE INDEMNITY [employer] TOTAL CHOICE INDEMNITY [employer] TOTAL CHOICE INDEMNITY [employer] [facility] TOTAL CHOICE INDEMNITY [employer] TOTAL CHOICE INDEMNITY [facility] TOTAL CHOICE INDEMNITY Care Teams Sales And Marketing Professional Relationship Specialty Start Date End Date Arely Murrell MD [address] [place] [address] [address] [place] [address] PCP - General 04/20/17 Additional Source Comments The information contained in this document represents components of the legal health record. It is not the complete legal health record.[facility]
--- OUTSIDE RECORDS SUMMARY | 2025-04-09 11:36 | XMS_ITS | Encounter Summary ---
Author Organization [facility] Address [address] [address] Phone Care Team Providers Care Bullet Assembly Press Operator Name Role Phone Larisa Shepard CNM, MPH Unavailable [phone] Arely Murrell MD Unavailable Tash Hirsch MD Unavailable [phone] Arely Murrell MD Primary Care Provider [phone] Reason for Referral * Physical Therapy (Routine) - Closed Specialty Diagnoses / Procedures Referred By Pool dunlap Referred To Contact Physical Therapy Diagnoses Encounter for rehabilitation Tyree Alvarado MD Phone: tel: fax: [email or web address] [facility] [address] [place] [address] Phone: tel: Referral ID Status Reason Start Date Expiration Date Visits Re quested Visits Authorized [id number] Closed 03/06/2019 05/05/2020 30 30 Encounter Details Date Type Department Care Team (Latest Contact Info) Description 03/06/2019 Transcribe Orders [facility] [address] [place] [id number] Tyree Alvarado MD [address] [place] [address], [address] [phone] [email or web address] Encounter for rehabilitation (Primary Dx) [...] Diagnoses Orde r Schedule Ambulatory referral to [facility] Physical Therapy Outpatient Referral Routine Encounter for rehabilitation Ordered: 03/06/2019 documented as of this encounter Visit Diagnoses Diagnosis Encounter for rehabilitation- Primary documented in this encounter Care Teams Bullet Assembly Press Operator Relationship Specialty Start Date End Date Arely Murrell MD [address] [facility] [address] [place] [address] PCP - General 04/20/17 Larisa Shepard CNM, MPH [address] [address] [email or web address] Historical LMR Provider 02/02/17 2 Arely Murrell MD [address] [place] [address] Historical LMR Provider 02/02/17 2 Tash Hirsch MD [address] [facility], 2nd [place] [address] [email or web address] Historical LMR Provider 02/02/17 documented as of this encounter Additional Source Comments The information contained in this document represents components of the legal health record. It is not the complete legal health record.[facility]
--- OUTSIDE RECORDS SUMMARY | 2025-04-09 11:36 | XMS_ITS | Encounter Summary ---
Author Organization [facility] Address [address] [place] [phone] Phone Care Team Providers Care Drawing Box Tender Name Role Phone Unavailable Primary Care Provider Unavailabl e Reason for Visit * Reason Comments Med Refill Encounter Details Date Type Department Care Team (Late st Contact Info) Description 02/09/2019 Refill [facility] [address] [address] [place] [address] Arely Murrell MD [address] [place] [address] [address] [place] [address] Oral contraceptive pill surveillance Social History Tobacco [...]
--- OUTSIDE RECORDS SUMMARY | 2025-04-09 11:36 | XMS_ITS | Encounter Summary ---
Author Organization [facility] Address [address] [place] [phone] Phone Care Team Providers Care Want Ad Supervisor Name Role Phone Arely Murrell MD Primary Care Provider [phone] Reason for Visit * Reason Comments Med Refill Encounter Details Date Type Department Care Team (Late st Contact Info) Description 03/21/2018 Refill [facility] 2 [place] [address] Arely Murrell MD [address] [place] [address] 2 [place] [address] Oral contraceptive pill surveillance Social History Tobacco [...] surveillance documented in this encounter Care Teams Want Ad Supervisor Relationship Specialty Start Date End Date Arely Murrell MD [address] [place] [address] 2 [place] [address] PCP - General Pediatrics 03/21/17 02/06/19 documented as of this encounter
[2025-04-09 11:44] VITALS: BP 125/71; PULSE 105; BMI 20.3
== END ==
LOC: HO.HGS 11:29
PROVIDERS: PCP Nurse Practitioner Family; Visit Provider Surgery
DX: Z15.01 Genetic susceptibility to malignant neoplasm of breast (principal); Z15.02 Genetic susceptibility to malignant neoplasm of ovary; Z15.05 Genetic susceptibility to malignant neoplasm of fallopian tube(s); Z15.060 Genetic susceptibility to colorectal cancer; Z15.068 Genetic susceptibility to other malignant neoplasm of digestive system
CPT/HCPCS: 99204

== ENCOUNTER → 2025-04-09 11:28 | Outpatient (BNVA) | payer OTHER, SELFPAY | PROVIDERS: PCP Nurse Practitioner Family; Visit Provider Surgery | DX: Z15.01 Genetic susceptibility to malignant neoplasm of breast (principal); Z15.02 Genetic susceptibility to malignant neoplasm of ovary; Z15.05 Genetic susceptibility to malignant neoplasm of fallopian tube(s); Z15.060 Genetic susceptibility to colorectal cancer; Z15.068 Genetic susceptibility to other malignant neoplasm of digestive system | CPT/HCPCS: 99202 ==